=== PATIENT | female | born 1955 | race Caucasian/White ===

== ENCOUNTER → 2016-05-06 | Outpatient (CLI) | payer OTHER ==
[~2016-05-06] MED LIST: ACET-1256 PO; AGM875 PO; ALBUAER2 INH; ALPR1TAB3 PO; ASPCH81 PO; LCTX PO; PRLSRUNK; QVRINH80 INH; TRAM-10 PO
--- NOTE | 2016-05-06 13:17 | DIAGNOSTIC IMAGING REPORT ---
GI SERIES W/AIR ROUTINE CLINICAL HISTORY: Epigastric pain. Reflux. Nausea. COMPARISON STUDY: Barium swallow March 28, 2010. FLUOROSCOPY TIME: 1.4 minutes. FINDINGS: 20 fluoroscopic images were obtained. Esophageal motility was normal. No esophageal mass or stricture was identified. No hiatal hernia was identified. No reflux was elicited. Gastric fold pattern was normal. Duodenal fold pattern was normal. Caliber of the opacified small bowel was normal. IMPRESSION: Unremarkable double contrast upper GI series Electronically signed by: Keron Crystal M.D. 05/06/2016 1:16 PM Dictated Date/Time: 05/06/2016 1:15 PM
== END | disposition home or self-care (01) ==
LOC: C.RAD 12:36
PROVIDERS: ATTEND Nurse Practitioner Family
DX: K21.9 Gastro-esophageal reflux disease without esophagitis (principal); R14.0 Abdominal distension (gaseous)

== ENCOUNTER 2020-03-03 19:11 | Observation (INO) ==
--- OUTSIDE RECORDS SUMMARY | 2020-03-03 19:14 | External Medical Summary | Continuity of Care Document ---
:1955 Author Name Ale Macdonald Address Unavailable Unavailable , Care Team Providers Name Role Phone Unavailable Unavailable Unavailable Maryam Cartwright M.D. Unavailable [email or web address] CAROLYN III, E Unavailable Unavailable Problems Hypertrophy of nasal turbinates (478.0) (J34.3) Acquired deviated nasal septum (470) (J34.2) Nasal polyps (471.9) (J33.9) Chronic sinusitis (473.9) (J32.9) Allergies and Adverse Reactions Darvocet-N 50 TABS (Allergy) Percocet TABS (Allergy) predniSONE TABS (Allergy) Sulfa Drugs (Allergy) Medications Albuterol Torres FRIAS Refills: 0 Vitamin D3 Torres ROSALES Refills: 0 Vitamin B 12 500 MCG Torres BASURTO Refills: 0 Xanax Torres SORIA Refills: 0 predniSONE 5 MG Oral Tablet; Take one ta blet 4 times a day for 5 days then one tablet 3 times a day for 5 days then one tablet 2 times a day for 5 days then stop Torres Cartwright Start: 10-Oct-2010 Quantity: 50 Refills: 0 Clarithromycin ER 500 MG Oral Tablet Ext ended Release 24 Hour; TAKE 2 TABLETS ONCE DAILY UNTIL FINISHED. Torres Cartwright Start: 10-Oct-2010 Quantity: 28 Refills: 0 Procedures History of Tonsillectomy With Adenoidectomy Status: Completed History of Section Status: Comp leted History of Section Status: Comp leted History of Treatment Of Forearm Fracture Status: Completed Immunizations Immunizations not documented Family History Father Family history of Cancer Status: Active Mother Family history of Cancer Status: Active Family history of Hypertension (V17.49) Status: Active natural son Family history of Hypertension (V17.49) Status: Active Social History - Smoking Status Tobacco smoking consumption unknown Plan of Treatment Planned Observations Planned Goals not documented Results No Known Results Results not documented
--- OUTSIDE RECORDS SUMMARY | 2020-03-03 19:14 | External Medical Summary | Continuity of Care Document ---
:1955 Author Name Ale Macdonald Address Unavailable Unavailable , Care Team Providers Name Role Phone Unavailable Unavailable Unavailable Maryam Cartwright M.D. Unavailable [email or web address] CAROLYN III, E Unavailable Unavailable Problems Chronic sinusitis (473.9) (J32.9) Nasal polyps (471.9) (J33.9) Acquired deviated nasal septum (470) (J34.2) Hypertrophy of nasal turbinates (478.0) (J34.3) Allergies and Adverse Reactions Darvocet-N 50 TABS (Allergy) Percocet TABS (Allergy) predniSONE TABS (Allergy) Sulfa Drugs (Allergy) Medications Albuterol Torres FRIAS Refills: 0 Vitamin D3 Torres ROSALES Refills: 0 Vitamin B 12 500 MCG Torres BASURTO Refills: 0 Xanax Torres SORIA Refills: 0 Clarithromycin ER 500 MG Oral Tablet Ext ended Release 24 Hour; TAKE 2 TABLETS ONCE DAILY UNTIL FINISHED. Torres Cartwright Start: 10-Oct-2010 Quantity: 28 Refills: 0 predniSONE 5 MG Oral Tablet; Take one ta blet 4 times a day for 5 days then one tablet 3 times a day for 5 days then one tablet 2 times a day for 5 days then stop Torres Cartwright Start: 10-Oct-2010 Quantity: 50 Refills: 0 Procedures History of Tonsillectomy With [...]
--- NOTE | 2020-03-03 20:30 | Emergency Department Note ---
History of Present Illness General Chief complaint: Hypertension Stated complaint: BP HIGH Time Seen by Provider: 03/03/20 20:09 Source: patient Mode of arrival: ambulatory Limitations: no limitations History of Present Illness Maximum Pain Intensity: 5 This patient comes in after feeling lightheaded and near syncope. She says she is not been feeling well for months. She called [facility] yesterday and started back on her atenolol. She said her son made her come in tonight because she felt like she was in a pass out apparently the ambulance showed up and her blood pressure was high and she kept getting more anxious and kept going up. She feels a lot better now. She says on January 27 she slipped on some ice it sounds like this was a mechanical fall she landed on her buttocks and left side. She not hit her head. She is had no chest pain or shortness of breath. She has occasional tingling in her left arm and has had some neck pain from this. She also some tingling in her left face these of both been going on for weeks. No fever chills no cough no exposure to Covid she does have asthma which has been stable. She does have anxiety and denies any suicidal or homicidal ideations. No blood or melena in her stool. No trouble speaking or swallowing. No headache. Home Medications Medication Instructions Recorded Confirmed Type albuterol sulfate 2 puff INHALATION .Q4H PRN 03/03/20 03/03/20 History alprazolam 0.5 mg PO TID PRN 03/03/20 03/03/20 History atenolol 12.5 mg PO QDL 03/03/20 03/03/20 History azithromycin 250 mg PO DAILY 03/03/20 03/03/20 History prednisone 5 mg PO DAILY 03/03/20 03/03/20 History Allergies Allergy/AdvReac Type Severity Reaction Status Date / Time Iodinated Contrast Media Allergy Severe SHORTNESS Verified 03/03/20 21:23 OF BREATH oxycodone Allergy Mild Verified 03/03/20 21:23 Sulfa (Sulfonamide Allergy Mild Verified 03/03/20 21:23 Antibiotics) Past Med/Surg History Social History Smoking Status: Never smoker Preferred Language: Korean Feels Safe at Home: Yes Immunizations: Past medical historyasthma. She did start a Z-Medardo as she was having some ear pain a couple days ago that is gotten better. She is also on prednisone 5 mg chronically and restarted atenolol under her providers guidance yesterday. Social history she lives with her 11-year-old grandson whom she is the guardian Review of Systems A total of 10 systems reviewed and were otherwise negative Physical Exam Vital Signs Vital Signs - 24 hr 03/03/20 19:14 03/03/20 20:32 03/03/20 22:00 Temperature 36.8 C Temperature Source Oral Pulse Rate 77 Pulse Rate [Apical] 61 68 Pulse Rate from SpO2 Sensor Respiratory Rate 16 18 18 Respiratory Effort / Characteristics Non-Labored Respiratory Depth Normal Normal Blood Pressure 193/84 H Blood Pressure [Right Arm] 166/72 H 186/84 H Blood Pressure Mean 120 Blood Pressure Mean [Right Arm] 103 118 Pulse Oximetry 96 98 98 Oxygen Delivery Method Room Air Room Air Room Air Sepsis Recent Fever Within 48 Hours No Sepsis New/Unexplained Change in Mental Status No Sepsis Action Taken by Nursing No Action Required 03/03/20 23:00 Temperature Temperature Source Pulse Rate 72 Pulse Rate [Apical] Pulse Rate from SpO2 Sensor 70 Respiratory Rate 22 Respiratory Effort / Characteristics Respiratory Depth Blood Pressure 188/81 H Blood Pressure [Right Arm] Blood Pressure Mean 116 Blood Pressure Mean [Right Arm] Pulse Oximetry 96 Oxygen Delivery Method Sepsis Recent Fever Within 48 Hours Sepsis New/Unexplained Change in Mental Status Sepsis Action Taken by Nursing General: Well developed well nourished in no acute distress, breathing comfortably on room air. Normal speech HEENT: Normal cephalic atraumatic. No facial asymmetry or droop. Pupils are equal round and reactive to light. Extraocular movements are intact. Oropharynx is pink with moist mucous membranes. No swelling of the mouth lips or tongue. Neck: Supple with a midline trachea. No meningeal signs or stiffness, no JVD or bruits. No Stridor. Chest: Clear to auscultation bilaterally. No wheezes or rhonchi. No increased work of breathing. Heart: Regular rate and rhythm without murmurs or gallops. Abdomen: Soft nontender, nondistended without rebound guarding or rigidity. Extremities: No cyanosis clubbing or edema. No calf tenderness or assymetry Spine/Back. Non tender to palpation. No CVA tenderness Skin: Good turgor without rashes. Neurologic exam: Cranial nerves two through 12 are intact. Motor and sensation are intact and symmetrical throughout. No tremor. Normal gait. Medical Decision Making Differential Diagnosis Hypertension, arrhythmia, acute coronary syndrome, syncope, anxiety, trauma, int racranial process, cervical fracture, electrolyte or metabolic abnormality, anemia, Covid Medical Records Attestation: I reviewed the patient's medical records. Home Medications Current Medication List: was personally reviewed by me Laboratory Data Attestation: I reviewed the patient's lab results. Result diagrams: 03/03/20 20:39 03/03/20 20:39 Lab Results 03/03/20 03/03/20 03/03/20 Range/Units 20:39 20:39 20:39 WBC 10.33 (4.8-10.8) K/uL RBC 4.47 (4.2-5.4) M/uL Hgb 14.1 (12.0-16.0) g/dL Hct 42.2 (37-47) % MCV 94.4 (80-100) fL MCH 31.5 (25-34) pg MCHC 33.4 (32-36) g/dL RDW Std Deviation 45.2 (36.4-46.3) fL RDW Coeff of Obey 13.1 (11.5-14.5) % Plt Count 226 (130-400) K/uL MPV 9.9 (7.4-10.4) fL Immature Gran % (Auto) 0.2 % Neut % (Auto) 61.6 % Lymph % (Auto) 31.2 % [place] % (Auto) 5.4 % Eos % (Auto) 1.3 % Baso % (Auto) 0.3 % Neut # (Auto) 6.37 (1.4-6.5) K/uL Lymph # (Auto) 3.22 (1.2-3.4) K/uL [place] # (Auto) 0.56 (0.11-0.59) K/uL Eos # (Auto) 0.13 (0-0.5) K/uL Baso # (Auto) 0.03 (0-0.2) K/uL Immature Gran # (Auto) 0.02 (0.00-0.02) K/uL Sodium 140 (136-145) mmol/L Potassium 3.6 (3.5-5.1) mmol/L Chloride 104 (98-107) mmol/L Carbon Dioxide 30 (21-32) mmol/L Anion Gap 6.0 (3-11) BUN 11 (7-18) mg/dl Creatinine 0.73 (0.6-1.2) mg/dl Est Cr Clr Drug Dosing 69.0 ml/min Est GFR ( Amer) 102.3 Est GFR (Non-Af Amer) 88.3 BUN/Creatinine Ratio 15.2 (10-20) Glucose 93 (70-99) mg/dl Calcium 9.9 (8.5-10.1) mg/dl Magnesium 2.1 (1.8-2.4) mg/dl Total Bilirubin 0.4 (0.2-1) mg/dl AST 10 L (15-37) U/L ALT 24 (12-78) U/L Alkaline Phosphatase 86 (45-117) U/L Troponin I < 0.015 (0-0.045) ng/ml Total Protein 8.0 (6.4-8.2) gm/dl Albumin 4.0 (3.4-5.0) gm/dl Globulin 4.0 (2.5-4.0) gm/dl Albumin/Globulin Ratio 1.0 (0.9-2) TSH 1.230 (0.300-4.500) uIu/ml Urine Color Yellow Urine Appearance Clear (Clear) Urine pH 5.5 (4.5-7.5) Ur Specific [place] 1.009 (1.000-1.030) Urine Protein Negative (Negative) Urine Glucose (UA) Negative (Negative) Urine Ketones Negative (Negative) Urine Blood Trace H (Negative) Urine Nitrite Negative (Negative) Urine Bilirubin Negative (Negative) Urine Urobilinogen Negative (Negative) Ur Leukocyte Esterase 1+ H (Negative) Urine WBC (Auto) 1-5 (0-5) /hpf Urine RBC (Auto) 0-4 (0-4) /hpf U Hyaline Cast (Auto) 0 (0-5) /lpf U Epithel Cells (Auto) 10-20 H (0-5) /lpf Urine Bacteria (Auto) Negative (Negative) Imaging Data Attestation: I personally reviewed and interpreted this imaging study as follows: Radiologist's Impression: CT SCAN OF THE BRAIN WITHOUT IV CONTRAST CLINICAL HISTORY: Syncope. COMPARISON STUDY: CT of the brain dated 07/30/2010. TECHNIQUE: Unenhanced axial CT scan of the brain is performed from the vertex to the skull base. A dose lowering technique was utilized adhering to the principles of ALARA. CT DOSE: 883.52 mGy.cm FINDINGS: Brain parenchyma: The brain parenchyma is normal in appearance. There is no hemorrhage, mass effect, or evidence of acute territorial ischemia by CT criteria. Garcia-white matter differentiation is preserved. No extra-axial fluid collection is seen. Ventricles, sulci, cisterns: Normal in configuration. Intracranial vasculature: There is mild atherosclerotic calcification of the cavernous carotid arteries. Calvarium: The skeletal structures are osteopenic. There is no depressed calvarial fracture. Sinuses and mastoids: Mild mucosal thickening is noted in the maxillary antra and the ethmoid sinuses. The remaining visualized paranasal sinuses are clear. The mastoid air cells are well pneumatized. Orbits: The bony orbits are grossly intact. IMPRESSION: No acute intracranial abnormality. CT SCAN OF THE CERVICAL SPINE CLINICAL HISTORY: Fall. COMPARISON STUDY: No priors. TECHNIQUE: CT scan of the cervical spine is performed from the skull base to the upper thoracic spine. Images are reviewed in the axial, sagittal, and coronal planes. IV contrast was not administered for this examination. A dose lowering technique was utilized adhering to the principles of ALARA. FINDINGS: Skeletal structures: The skeletal structures are osteopenic. There is no evidence of fracture or subluxation involving the cervical spine. Vertebral body height and alignment are maintained. Small anterior osteophytes are seen throughout. The odontoid process and lateral masses are intact. The atlantoaxial articulation is preserved noting productive degenerative change. The spinous processes appear intact. There is moderate multilevel cervical spondylosis. Uncovertebral and facet arthropathy contribute to neural foraminal narrowing at several levels. Intervertebral discs: Moderate disc space narrowing is seen at C5-C6 and C6-C7. Mild disc space narrowing is seen at the remaining cervical levels. Central canal: Posterior disc osteophyte complexes at C5-C6 and C6-C7 likely contribute to mild acquired compromise of the central canal. Soft tissues: The prevertebral and paraspinous soft tissues are within normal limits. Calvarium: The visualized calvarium at the skull base appears intact. Brain parenchyma: Partially visualized brain parenchyma at the skull base is within normal limits. Sinuses and mastoids: Mild mucosal thickening is noted in the maxillary antra. The mastoid air cells are well pneumatized. Lung apices: There is biapical scarring. Apical lung parenchyma is otherwise clear as visualized. IMPRESSION: 1. There is no evidence of fracture or subluxation involving the cervical spine. 2. Osteopenia and spondylotic change as above. ECG Data Attestation: I personally reviewed and interpreted this ECG as follows: Indication: + weakness Rate (beats per minute): 57 Rhythm: + normal sinus ECG Intervals/blocks: + Normal QRS, + Normal QT and + Normal CT ECG [place]: + Normal ECG ST segments: + T-wave inversions (T wave inversions inferiorly and laterally which are new) ECG Findings: no PACs and no PVCs Comparison ECG Date: from (01/19/13) Change: no significant change MDM Narrative This patient comes in as described above. She was placed on a monitor tech room C2. She has multiple complaints that have been going on for over a month now she said her blood pressure was high and she felt dizzy. When she showed up in triage it was down to 193/84. She has no numbness weakness or neuro neurologic symptoms. Multiple blood testing was obtained. IV access was established. chest x-ray, EKG, and CAT scan of the head and neck were obtained as well. CAT scan of the head was negative. She has no fever or white count to suggest infection. She has no significant anemia. EKG does not show any significant arrhythmia, however she does have some T wave inversions inferiorly noted laterally which are new compared to her old one that was from May 07, 2016. She has testing of electrolyte or metabolic abnormality. Troponin was negative. CAT scan of the head and neck were unremarkable. Given her near syncopal episode and her EKG changes. I do think she needs to be admitted/observe for further cardiac work-up. I will consult Dr. Martin to see her in the ER for these measures. Continuous cardiac monitoring: An order was placed in the EMR for continuous cardiac monitoring. The patient was found to be in normal sinus rhythm with a pulse of 72. Impression & Plan Near syncope, Anxiety, Weakness, Acute electrocardiogram changes Discharge Plan Visit Data Chief Complaint: Hypertension Stated Complaint: BP HIGH ED Provider: Roland Rogers Discharge Problem: Near syncope, Anxiety, Weakness, Acute electrocardiogram changes Forms Stand Alone Forms: My [facility] Prescriptions Prescriptions: No Action azithromycin 250 mg tablet 250 mg PO DAILY RF: 0 atenolol 25 mg tablet 12.5 mg PO QDL RF: 0 alprazolam 0.5 mg tablet 0.5 mg PO TID PRN (Reason: Anxiety) RF: 0 albuterol sulfate 90 mcg/actuation HFA aerosol inhaler 2 puff INHALATION .Q4H PRN (Reason: Shortness Of Breath) RF: 0 prednisone 5 mg tablet 5 mg PO DAILY RF: 0
[2020-03-03 20:56] LABS: Basophils # (auto) 0.03 K/uL (0-0.2); Basophils % (auto) 0.3 %; Eosinophils # (auto) 0.13 K/uL (0-0.5); Eosinophils % (auto) 1.3 %; Hematocrit (blood only) 42.2 % (37-47); Hemoglobin 14.1 g/dL (12.0-16.0); Immature Granulocytes # (auto) 0.02 K/uL (0.00-0.02); Immature Granulocytes % (auto) 0.2 %; Lymphocytes # (auto) 3.22 K/uL (1.2-3.4); Lymphocytes % (auto) 31.2 %; Mean Corpuscular Hemoglobin 31.5 pg (25-34); Mean Corpuscular Hgb Conc 33.4 g/dL (32-36); Mean Corpuscular Volume 94.4 fL (80-100); Mean Platelet Volume 9.9 fL (7.4-10.4); Monocytes # (auto) 0.56 K/uL (0.11-0.59); Monocytes % (auto) 5.4 %; Neutrophils # (auto) 6.37 K/uL (1.4-6.5); Neutrophils % (auto) 61.6 %; Platelet Count 226 K/uL (130-400); RDW Coefficient of Variation 13.1 % (11.5-14.5); RDW Standard Deviation 45.2 fL (36.4-46.3); Red Blood Count 4.47 M/uL (4.2-5.4); White Blood Count 10.33 K/uL (4.8-10.8)
--- NOTE | 2020-03-03 21:04 | CT Scan Report ---
CT SCAN OF THE BRAIN WITHOUT IV CONTRAST CLINICAL HISTORY: Syncope. COMPARISON STUDY: CT of the brain dated 07/30/2010. TECHNIQUE: Unenhanced axial CT scan of the brain is performed from the vertex to the skull base. A d ose lowering technique was utilized adhering to the principles of ALARA. CT DOSE: 883.52 mGy.cm FINDINGS: Brain parenchyma: The brain parenchyma is normal in appearance. There is no hemorrhage, mass effect, or evidence of acute territorial ischemia by CT criteria. Garcia-white matter differentiation is preser autumn. No extra-axial fluid collection is seen. Ventricles, sulci, cisterns: Normal in configuration. Intracranial vasculature: There is mild atherosclerotic calcification of the cavernous carotid arteri es. Calvarium: The skeletal structures are osteopenic. There is no depressed calvarial fracture. Sinuses and mastoids: Mild mucosal thickening is noted in the maxillary antra and the ethmoid sinuses . The remaining visualized paranasal sinuses are clear. The mastoid air cells are well pneumatized. Orbits: The bony orbits are grossly intact. IMPRESSION: No acute intracranial abnormality. ACT 112: Negative or not required by law. Electronically signed by: Stephen Bowen M.D. 03/03/2020 9:02 PM
--- NOTE | 2020-03-03 21:09 | CT Scan Report ---
CT SCAN OF THE CERVICAL SPINE CLINICAL HISTORY: Fall. COMPARISON STUDY: No priors. TECHNIQUE: CT scan of the cervical spine is performed from the skull base to the upper thoracic spine . Images are reviewed in the axial, sagittal, and coronal planes. IV contrast was not administered fo r this examination. A dose lowering technique was utilized adhering to the principles of ALARA. FINDINGS: Skeletal structures: The skeletal structures are osteopenic. There is no evidence of fracture or subl uxation involving the cervical spine. Vertebral body height and alignment are maintained. Small anter ior osteophytes are seen throughout. The odontoid process and lateral masses are intact. The atlantoa xial articulation is preserved noting productive degenerative change. The spinous processes appear in tact. There is moderate multilevel cervical spondylosis. Uncovertebral and facet arthropathy contribu te to neural foraminal narrowing at several levels. Intervertebral discs: Moderate disc space narrowing is seen at C5-C6 and C6-C7. Mild disc space narro wing is seen at the remaining cervical levels. Central canal: Posterior disc osteophyte complexes at C5-C6 and C6-C7 likely contribute to mild acqui red compromise of the central canal. Soft tissues: The prevertebral and paraspinous soft tissues are within normal limits. Calvarium: The visualized calvarium at the skull base appears intact. Brain parenchyma: Partially visualized brain parenchyma at the skull base is within normal limits. Sinuses and mastoids: Mild mucosal thickening is noted in the maxillary antra. The mastoid air cells are well pneumatized. Lung apices: There is biapical scarring. Apical lung parenchyma is otherwise clear as visualized. IMPRESSION: 1. There is no evidence of fracture or subluxation involving the cervical spine. 2. Osteopenia and spondylotic change as above. ACT 112: Negative or not required by law. Electronically signed by: Stephen Bowen M.D. 03/03/2020 9:08 PM
[2020-03-03 21:13] LABS: Appearance Urine Clear (Clear); Bacteria Urine Automated Negative (Negative); Bilirubin Urine Negative (Negative); Blood Urine Trace (Negative); Cast Urine Automated 0 /lpf (0-5); Color Urine Yellow; Glucose Urine UA Negative (Negative); Ketones Urine Negative (Negative); Leukocyte Esterase Urine 1+ (Negative); Nitrite Urine Negative (Negative); Protein Urine Negative (Negative); RBC Urine Automated 0-4 /hpf (0-4); Specific Gravity Urine 1.009 (1.000-1.030); Urobilinogen Urine Negative (Negative); pH Urine 5.5 (4.5-7.5)
[2020-03-03 21:15] LABS: Alanine Aminotransferase 24 U/L (12-78); Aspartate Aminotransferase 10 U/L (15-37); BUN Creatinine Ratio 15.2 (10-20); Blood Urea Nitrogen 11 mg/dl (7-18); Calcium 9.9 mg/dl (8.5-10.1); Carbon Dioxide 30 mmol/L (21-32); Chloride 104 mmol/L (98-107); Est GFR (African American) 102.3; Est GFR (Non-African American) 88.3; Glucose 93 mg/dl (70-99); Magnesium 2.1 mg/dl (1.8-2.4); Potassium 3.6 mmol/L (3.5-5.1); Sodium 140 mmol/L (136-145)
[2020-03-03 21:25] LABS: Alkaline Phosphatase 86 U/L (45-117); Bilirubin,Total 0.4 mg/dl (0.2-1); Troponin I < 0.015 ng/ml (0-0.045)
[2020-03-04] MEDS ORDERED: ACETAMINOPHEN 500 MG TAB PO STA (01:13)
[2020-03-04] MEDS ORDERED: NITROGLYCERIN SL 0.4 MG/TAB TAB SL PRN (03:01)
[2020-03-04] MEDS ORDERED: ALBUTEROL HFA 8 GM INHALER INH PRN (03:01)
[2020-03-04] MEDS ORDERED: ONDANSETRON INJ 2 MG/ML 2 ML VIAL IV PRN (03:01)
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
[2020-03-04 07:28] LABS: Basophils # (auto) 0.05 K/uL (0-0.2); Basophils % (auto) 0.6 %; Eosinophils # (auto) 0.25 K/uL (0-0.5); Eosinophils % (auto) 2.8 %; Hematocrit (blood only) 41.3 % (37-47); Immature Granulocytes # (auto) 0.03 K/uL (0.00-0.02); Immature Granulocytes % (auto) 0.3 %; Lymphocytes # (auto) 3.33 K/uL (1.2-3.4); Lymphocytes % (auto) 37.2 %; Mean Corpuscular Hemoglobin 31.9 pg (25-34); Mean Corpuscular Hgb Conc 33.9 g/dL (32-36); Mean Corpuscular Volume 94.1 fL (80-100); Mean Platelet Volume 9.9 fL (7.4-10.4); Monocytes # (auto) 0.52 K/uL (0.11-0.59); Monocytes % (auto) 5.8 %; Neutrophils # (auto) 4.78 K/uL (1.4-6.5); Neutrophils % (auto) 53.3 %; Platelet Count 210 K/uL (130-400); RDW Coefficient of Variation 13.1 % (11.5-14.5); RDW Standard Deviation 45.4 fL (36.4-46.3); Red Blood Count 4.39 M/uL (4.2-5.4); White Blood Count 8.96 K/uL (4.8-10.8)
--- NOTE | 2020-03-04 07:50 | Electrocardiogram Report ---
Test Reason : Blood Pressure : / mmHG Vent. Rate : 057 BPM Atrial Rate : 057 BPM P-R Int : 154 ms QRS Dur : 108 ms QT Int : 420 ms P-R-T Axes : 048 -24 005 degrees QTc Int : 408 ms Sinus bradycardia Left ventricular hypertrophy with repolarization abnormality Cannot rule out Septal infarct , age undetermined Abnormal ECG When compared with ECG of 19-JAN-2013 20:23, T wave inversion now evident in Inferolateral leads Confirmed by Bonilla Hansen ([id number]) on 03/04/2020 7:49:41 AM Referred By: REFERRED SELF Confirmed By:Bonilla Hansen
[2020-03-04 07:53] LABS: BUN Creatinine Ratio 17.4 (10-20); Blood Urea Nitrogen 11 mg/dl (7-18); Calcium 9.7 mg/dl (8.5-10.1); Carbon Dioxide 29 mmol/L (21-32); Chloride 106 mmol/L (98-107); Creatinine Clr Calc Pharmacy 78.7 ml/min; Est GFR (African American) 110.8; Est GFR (Non-African American) 95.6; Glucose 84 mg/dl (70-99); Magnesium 2.1 mg/dl (1.8-2.4); Potassium 4.1 mmol/L (3.5-5.1); Sodium 140 mmol/L (136-145)
[2020-03-04 07:57] LABS: Troponin I < 0.015 ng/ml (0-0.045)
[2020-03-04] MEDS: ALPRAZolam 0.5 MG TABLET PO PRN (08:59)
[2020-03-04] MEDS ORDERED: AZITHROMYCIN 250 MG TAB PO SCH ×2 (09:00→16:00)
[2020-03-04] MEDS ORDERED: predniSONE 5 MG TAB PO SCH ×2 (09:00→16:00)
[2020-03-04] MEDS: ACETAMINOPHEN 325 MG TAB PO PRN (12:05)
[2020-03-04] MEDS: ATENOLOL 25 MG TABLET PO SCH (12:17)
[2020-03-04] MEDS: LOSARTAN POTASSIUM 25 MG TAB PO SCH (13:49)
--- NOTE | 2020-03-04 15:42 | Cardiology Consultation ---
Date of Consultation March 04, 2020 Assessment & Plan (1) HTN (hypertension): (2) Abnormal EKG: (3) LVH (left ventricular hypertrophy): Patient presents with symptoms of dizziness and lightheadedness. She denies exertional chest pain symptoms, and her symptoms do not sound suggestive of ischemia. Troponin I has been negative on a serial basis x3. EKG however performed last evening at 2031 revealed sinus bradycardia 57 bpm, with age-indeterminate septal infarction pattern in lead V2, and repolarization changes most notably in the lateral precordial leads suggestive of ischemia versus left ventricular hypertrophy. EKG was repeated today with development of noted new T wave inversions in leads V3 and V4, more prominent than the previous tracing. Echocardiogram revealed normal left ventricular ejection fraction with no regional wall motion abnormalities and moderate concentric left ventricular hypertrophy. Patient's blood pressure has been consistently elevated during hospital stay, initially with systolic blood pressure in the 190s, now down into the 150s. At present, recommend proceeding with treatment for hypertension, will start losartan 25 mg daily. Continue low-dose atenolol which has been helpful in the past with her subjective palpitations. Her heart rates have been in the 50s to 60s range, and I do not think there is much room for titration of her beta-briana. Her EKG could be outside sales representative insurance of the LVH, however ischemic heart disease is another consideration. Patient's cardiac enzymes are negative however, and she does not have symptoms to suggest unstable angina. After blood pressure is controlled, future considerations include proceeding wit h nuclear stress testing. I am not convinced the patient revealed to walk sufficiently to allow for a stress echocardiogram, I would avoid dobutamine administration given her hypertension and anxiety. History of Present Illness Attending Physician: Renato Bansal MD History of Present Illness Urszula Paris is a 64 year old female seen in cardiology consultation per Dr Martin for the evaluation of dizziness and abnormal EKG. The patient describes a longstanding history of palpitations and hypertension. She had previously been treated with atenolol but she believes that it was discontinued approximately 2 years ago, and recently reinitiated on 02/08/2020. She describes a longstanding history with difficulty with anxiety. She notes onset of lightheadedness and dizziness a few months ago, however it was acutely worse yesterday. She noted lightheadedness and dizziness that seem to be worse when she was seated, and better when she got up and walked around. She notes no alfred loss of postural tone. When I asked her how she felt yesterday she states that she "never feels good "but she did not have dizziness first thing in the morning. Around lunchtime she started to feel dizziness. She presented to the emergency room after her symptoms persisted, and her initial vital signs performed last evening at 1914 included initial blood pressure of 193/84. Her initial heart rate was 77 bpm. At present, she is feeling improved, without alfred dizziness while sitting still. She denies any recent exertional chest discomfort. She walks up stairs routinely, without chest pain, and describes a degree of shortness of breath appropriate for her level of exertion. Past Medical History: Palpitations COPD Anxiety Hypertension Family History: Mother with history of hypercholesterolemia, had coronary heart disease with CABG in her 60s (1994) and ultimately due to complications of cancer at the age of 80 Patient has a brother with a history of stroke and perhaps myocardial infarction in his 40s. Details unknown. Social History: Non-smoker Allergies Allergy/AdvReac Type Severity Reaction Status Date / Time Iodinated Contrast Media Allergy Severe SHORTNESS Verified 03/03/20 21:23 OF BREATH oxycodone Allergy Mild Verified 03/03/20 21:23 Sulfa (Sulfonamide Allergy Mild Verified 03/03/20 21:23 Antibiotics) Home Medications Medication Instructions Recorded Confirmed Type albuterol sulfate 2 puff INHALATION .Q4H PRN 03/03/20 03/03/20 History alprazolam 0.5 mg PO TID PRN 03/03/20 03/03/20 History atenolol 12.5 mg PO QDL 03/03/20 03/03/20 History azithromycin 250 mg PO DAILY 03/03/20 03/03/20 History prednisone 5 mg PO DAILY 03/03/20 03/03/20 History Patient History Social History Smoking Status: Never smoker Second Hand Exposure: No; Do You Dip or Chew Tobacco: No; Tobacco Cessation Education Requested by Patient: No Hx Alcohol Use: No Hx Substance Use: No Preferred Language: Palauan Communication Ability: Effective Pediatrician Required: No Beliefs That Will Affect Care: None marital status: Current Living Situation: Spouse Other Information That Helps Us Care for You: No Feels Safe at Home: Yes Safety Concerns: Feels Safe At This Time Assistive Devices: None Review of Systems Review of Systems: All systems reviewed & are unremarkable except as noted in HPI & below Physical Exam Physical Exam: Temp Pulse Resp BP Pulse Ox 36.6 C 60 18 157/70 H 95 03/04/20 15:00 03/04/20 15:02 03/04/20 15:00 03/04/20 15:00 03/04/20 15:00 Constitutional: WD/WN, vitals as above Respiratory: normal respiratory effort, lungs clear to auscultation Cardiovascular: RRR, no murmur, no edema Gastrointestinal (Abdomen): normal bowel sounds, soft, nontender, no hepatosplenomegaly Skin: no rashes, warm and dry Neurologic: PERRL, EOMI, accommodation nl, no face palsy, no dysarthria Results & Data ([facility]) Vital Signs (Past 12 Hours) Vital Signs Temp Pulse Pulse Resp BP Pulse Ox 03/04/20 15:02 60 03/04/20 15:00 36.6 C 61 18 157/70 H 95 03/04/20 12:36 36.8 C 84 19 170/75 H 94 03/04/20 07:35 36.7 C 74 18 151/69 H 93 03/04/20 07:19 60 03/04/20 05:25 54 L Laboratory Results Cardiac Enzymes 03/03/20 03/04/20 03/04/20 Range/Units 20:39 06:55 11:01 AST 10 L (15-37) U/L Troponin I < 0.015 < 0.015 < 0.015 (0-0.045) ng/ml CBC 03/03/20 03/04/20 Range/Units 20:39 06:55 WBC 10.33 8.96 (4.8-10.8) K/uL RBC 4.47 4.39 (4.2-5.4) M/uL Hgb 14.1 14.0 (12.0-16.0) g/dL Hct 42.2 41.3 (37-47) % Plt Count 226 210 (130-400) K/uL Neut # (Auto) 6.37 4.78 (1.4-6.5) K/uL Lymph # (Auto) 3.22 3.33 (1.2-3.4) K/uL [place] # (Auto) 0.56 0.52 (0.11-0.59) K/uL Eos # (Auto) 0.13 0.25 (0-0.5) K/uL Baso # (Auto) 0.03 0.05 (0-0.2) K/uL Comprehensive Metabolic Panel 03/03/20 03/04/20 Range/Units 20:39 06:55 Sodium 140 140 (136-145) mmol/L Potassium 3.6 4.1 (3.5-5.1) mmol/L Chloride 104 106 (98-107) mmol/L Carbon Dioxide 30 29 (21-32) mmol/L BUN 11 11 (7-18) mg/dl Creatinine 0.73 0.64 (0.6-1.2) mg/dl Glucose 93 84 (70-99) mg/dl Calcium 9.9 9.7 (8.5-10.1) mg/dl AST 10 L (15-37) U/L ALT 24 (12-78) U/L Alkaline Phosphatase 86 (45-117) U/L Total Protein 8.0 (6.4-8.2) gm/dl Albumin 4.0 (3.4-5.0) gm/dl Intake and Output 03/04/20 03/04/20 03/04/20 06:59 14:59 22:59 Intake Total 120 / 120 Balance 120 / 120 Intake: Oral 120 / 120 Other: # Unmeasured Voids 1 Weight 58.7 kg Weight Measurement Method Built in [facility]
[2020-03-04] MEDS ORDERED: POLYETHYLENE (MIRALAX) 17 GM PACK PO ONE (17:45)
[2020-03-04] MEDS ORDERED: LIDOCAINE 5% 1 PATCH TD SCH (18:00)
--- NOTE | 2020-03-04 18:35 | Hospitalist Progress Note ---
Date of Service March 04, 2020 Assessment & Plan (1) Near syncope: (2) HTN (hypertension): (3) Abnormal EKG: (4) LVH (left ventricular hypertrophy): A 64-year-old female presents with near syncope. 1. Near syncope, anxious, hypertensive urgency. EKG shows some T-wave inversions in inferior leads. Atenolol was restarted 12.5 mg daily a couple of days ago. We will monitor in the tele floor. Serial enzymes, echocardiogram, we will repeat EKG. Cardiology consult in a.m. for further recommendation. Cardiology recommends to star losartan, BP control, tele monitoring. 2. Hypertension. Blood pressure elevated on admission, further management as above. She also has LVH on EKG. Will follow echocardiogram for the LVH. Appreciate cardiology input. 3. History of anxiety and depression. Continue alprazolam for now. 4. History of asthma. Continue home inhalers and prednisone, recent possible ear infection. On exam, ear looks fine. We will complete the azithromycin course. 5. Deep venous thrombosis prophylaxis, sequential compression devices. 6. Disposition: Observation in med tele. Expect discharge home and follow with family doctor. Admission and Anticipated Discharge Date Admission Date: March 04, 2020 Subjective Pt seen in follow up of dizziness, hypertension. Currently sitting up in bed in NAD. Says she feels better. Currently denies any chest pain, shortness of breath. Seen by cardiology - change to losartan. Review of Systems Review of Systems: All systems reviewed & are unremarkable except as noted in HPI & below Constitutional: no fever and no chills Respiratory: no cough and no dyspnea Cardiovascular: no chest pain and no palpitations Physical Exam Physical Exam: GENERAL: The patient is of moderate built, not in acute distress. HEENT: NC/AT, Pupils equal, round, reactive to light. NECK: No JVD. No neck masses. CARDIOVASCULAR: S1, S2, regular rate and rhythm, no murmur, no gallop. RESPIRATORY SYSTEM: Normal AP diameter. No accessory muscle use. No wheezing, no crackles. ABDOMEN: Soft, bowel sounds present, nontender. No distention. NEURO: alert and oriented x3, speech fluent, no facial asymmetry, Cranial nerves II-XII are grossly intact. Nonfocal. Moves extremities. EXTREMITIES: No edema, no erythema. Results & Data Results & Data ([facility]) Vital Signs (Past 12 Hours) Vital Signs Temp Pulse Pulse Resp BP Pulse Ox 03/04/20 15:02 60 03/04/20 15:00 36.6 C 61 18 157/70 H 95 03/04/20 12:36 36.8 C 84 19 170/75 H 94 03/04/20 07:35 36.7 C 74 18 151/69 H 93 03/04/20 07:19 60 Laboratory Results 03/04/20 03/04/20 03/04/20 Range/Units 11:01 06:55 06:55 WBC 8.96 (4.8-10.8) K/uL RBC 4.39 (4.2-5.4) M/uL Hgb 14.0 (12.0-16.0) g/dL Hct 41.3 (37-47) % MCV 94.1 (80-100) fL MCH 31.9 (25-34) pg MCHC 33.9 (32-36) g/dL RDW Std Deviation 45.4 (36.4-46.3) fL RDW Coeff of Obey 13.1 (11.5-14.5) % Plt Count 210 (130-400) K/uL MPV 9.9 (7.4-10.4) fL Immature Gran % (Auto) 0.3 % Neut % (Auto) 53.3 % Lymph % (Auto) 37.2 % [place] % (Auto) 5.8 % Eos % (Auto) 2.8 % Baso % (Auto) 0.6 % Neut # (Auto) 4.78 (1.4-6.5) K/uL Lymph # (Auto) 3.33 (1.2-3.4) K/uL [place] # (Auto) 0.52 (0.11-0.59) K/uL Eos # (Auto) 0.25 (0-0.5) K/uL Baso # (Auto) 0.05 (0-0.2) K/uL Immature Gran # (Auto) 0.03 H (0.00-0.02) K/uL Sodium 140 (136-145) mmol/L Potassium 4.1 (3.5-5.1) mmol/L Chloride 106 (98-107) mmol/L Carbon Dioxide 29 (21-32) mmol/L Anion Gap 4.0 (3-11) BUN 11 (7-18) mg/dl Creatinine 0.64 (0.6-1.2) mg/dl Est Cr Clr Drug Dosing 78.7 ml/min Est GFR ( Amer) 110.8 Est GFR (Non-Af Amer) 95.6 BUN/Creatinine Ratio 17.4 (10-20) Glucose 84 (70-99) mg/dl Calcium 9.7 (8.5-10.1) mg/dl Magnesium 2.1 (1.8-2.4) mg/dl Total Bilirubin (0.2-1) mg/dl AST (15-37) U/L ALT (12-78) U/L Alkaline Phosphatase (45-117) U/L Troponin I < 0.015 < 0.015 (0-0.045) ng/ml Total Protein (6.4-8.2) gm/dl Albumin (3.4-5.0) gm/dl Globulin (2.5-4.0) gm/dl Albumin/Globulin Ratio (0.9-2) TSH (0.300-4.500) uIu/ml Urine Color Urine Appearance (Clear) Urine pH (4.5-7.5) Ur Specific [employer] (1.000-1.030) Urine Protein (Negative) Urine Glucose (UA) (Negative) Urine Ketones (Negative) Urine Blood (Negative) Urine Nitrite (Negative) Urine Bilirubin (Negative) Urine Urobilinogen (Negative) Ur Leukocyte Esterase (Negative) Urine WBC (Auto) (0-5) /hpf Urine RBC (Auto) (0-4) /hpf U Hyaline Cast (Auto) (0-5) /lpf U Epithel Cells (Auto) (0-5) /lpf Urine Bacteria (Auto) (Negative) COVID-19 Eval Order SARS-CoV-2, RNA, NAAT (NEGATIVE) 03/04/20 03/04/20 03/03/20 Range/Units 01:00 01:00 20:39 WBC (4.8-10.8) K/uL RBC (4.2-5.4) M/uL Hgb (12.0-16.0) g/dL Hct (37-47) % MCV (80-100) fL MCH (25-34) pg MCHC (32-36) g/dL RDW Std Deviation (36.4-46.3) fL RDW Coeff of [place] (11.5-14.5) % Plt Count (130-400) K/uL MPV (7.4-10.4) fL Immature Gran % (Auto) % Neut % (Auto) % Lymph % (Auto) % [place] % (Auto) % Eos % (Auto) % Baso % (Auto) % Neut # (Auto) (1.4-6.5) K/uL Lymph # (Auto) (1.2-3.4) K/uL [place] # (Auto) (0.11-0.59) K/uL Eos # (Auto) (0-0.5) K/uL Baso # (Auto) (0-0.2) K/uL Immature Gran # (Auto) (0.00-0.02) K/uL Sodium (136-145) mmol/L Potassium (3.5-5.1) mmol/L Chloride (98-107) mmol/L Carbon Dioxide (21-32) mmol/L Anion Gap (3-11) BUN (7-18) mg/dl Creatinine (0.6-1.2) mg/dl Est Cr Clr Drug Dosing ml/min Est GFR ( Amer) Est GFR (Non-Af Amer) BUN/Creatinine Ratio (10-20) Glucose (70-99) mg/dl Calcium (8.5-10.1) mg/dl Magnesium (1.8-2.4) mg/dl Total Bilirubin (0.2-1) mg/dl AST (15-37) U/L ALT (12-78) U/L Alkaline Phosphatase (45-117) U/L Troponin I (0-0.045) ng/ml Total Protein (6.4-8.2) gm/dl Albumin (3.4-5.0) gm/dl Globulin (2.5-4.0) gm/dl Albumin/Globulin Ratio (0.9-2) TSH (0.300-4.500) uIu/ml Urine Color Yellow Urine Appearance Clear (Clear) Urine pH 5.5 (4.5-7.5) Ur Specific [employer] 1.009 (1.000-1.030) Urine Protein Negative (Negative) Urine Glucose (UA) Negative (Negative) Urine Ketones Negative (Negative) Urine Blood Trace H (Negative) Urine Nitrite Negative (Negative) Urine Bilirubin Negative (Negative) Urine Urobilinogen Negative (Negative) Ur Leukocyte Esterase 1+ H (Negative) Urine WBC (Auto) 1-5 (0-5) /hpf Urine RBC (Auto) 0-4 (0-4) /hpf U Hyaline Cast (Auto) 0 (0-5) /lpf U Epithel Cells (Auto) 10-20 H (0-5) /lpf Urine Bacteria (Auto) Negative (Negative) COVID-19 Eval Order Covid19 [facility] SARS-CoV-2, RNA, NAAT NEGATIVE (NEGATIVE) 03/03/20 03/03/20 Range/Units 20:39 20:39 WBC 10.33 (4.8-10.8) K/uL RBC 4.47 (4.2-5.4) M/uL Hgb 14.1 (12.0-16.0) g/dL Hct 42.2 (37-47) % MCV 94.4 (80-100) fL MCH 31.5 (25-34) pg MCHC 33.4 (32-36) g/dL RDW Std Deviation 45.2 (36.4-46.3) fL RDW Coeff of [place] 13.1 (11.5-14.5) % Plt Count 226 (130-400) K/uL MPV 9.9 (7.4-10.4) fL Immature Gran % (Auto) 0.2 % Neut % (Auto) 61.6 % Lymph % (Auto) 31.2 % [place] % (Auto) 5.4 % Eos % (Auto) 1.3 % Baso % (Auto) 0.3 % Neut # (Auto) 6.37 (1.4-6.5) K/uL Lymph # (Auto) 3.22 (1.2-3.4) K/uL [place] # (Auto) 0.56 (0.11-0.59) K/uL Eos # (Auto) 0.13 (0-0.5) K/uL Baso # (Auto) 0.03 (0-0.2) K/uL Immature Gran # (Auto) 0.02 (0.00-0.02) K/uL Sodium 140 (136-145) mmol/L Potassium 3.6 (3.5-5.1) mmol/L Chloride 104 (98-107) mmol/L Carbon Dioxide 30 (21-32) mmol/L Anion Gap 6.0 (3-11) BUN 11 (7-18) mg/dl Creatinine 0.73 (0.6-1.2) mg/dl Est Cr Clr Drug Dosing 69.0 ml/min Est GFR ( Amer) 102.3 Est GFR (Non-Af Amer) 88.3 BUN/Creatinine Ratio 15.2 (10-20) Glucose 93 (70-99) mg/dl Calcium 9.9 (8.5-10.1) mg/dl Magnesium 2.1 (1.8-2.4) mg/dl Total Bilirubin 0.4 (0.2-1) mg/dl AST 10 L (15-37) U/L ALT 24 (12-78) U/L Alkaline Phosphatase 86 (45-117) U/L Troponin I < 0.015 (0-0.045) ng/ml Total Protein 8.0 (6.4-8.2) gm/dl Albumin 4.0 (3.4-5.0) gm/dl Globulin 4.0 (2.5-4.0) gm/dl Albumin/Globulin Ratio 1.0 (0.9-2) TSH 1.230 (0.300-4.500) uIu/ml Urine Color Urine Appearance (Clear) Urine pH (4.5-7.5) Ur Specific [employer] (1.000-1.030) Urine Protein (Negative) Urine Glucose (UA) (Negative) Urine Ketones (Negative) Urine Blood (Negative) Urine Nitrite (Negative) Urine Bilirubin (Negative) Urine Urobilinogen (Negative) Ur Leukocyte Esterase (Negative) Urine WBC (Auto) (0-5) /hpf Urine RBC (Auto) (0-4) /hpf U Hyaline Cast (Auto) (0-5) /lpf U Epithel Cells (Auto) (0-5) /lpf Urine Bacteria (Auto) (Negative) COVID-19 Eval Order SARS-CoV-2, RNA, NAAT (NEGATIVE) Medications Administered Current Inpatient Medications Acetaminophen (Acetaminophen 325 Mg Tab) 650 mg PO Q4H PRN PRN Reason: Pain or Fever Stop: 04/03/20 03:00 Last Admin: 01/23/21 12:05 Dose: 650 mg Documented by: Albuterol (Albuterol Hfa 8 Gm Inhaler) 2 puffs INH .Q4H PRN PRN Reason: Shortness Of Breath Stop: 04/03/20 03:00 Alprazolam (Alprazolam 0.5 Mg Tablet) 0.5 mg PO TID PRN PRN Reason: Anxiety Stop: 04/03/20 03:00 Last Admin: 03/04/20 08:59 Dose: 0.5 mg Documented by: Atenolol (Atenolol 25 Mg Tablet) 12.5 mg PO QDL COUNT INCLUDES THE [facility] Stop: 04/03/20 11:29 Last Admin: 03/04/20 12:17 Dose: 12.5 mg Documented by: Azithromycin (Azithromycin 250 Mg Tab) 250 mg PO DAILY@1600 ANN; Protocol Stop: 03/14/20 15:59 Last Admin: 03/04/20 15:54 Dose: 250 mg Documented by: Lidocaine (Lidocaine 5% 1 Patch) 1 patch TD DAILY@1800 COUNT INCLUDES THE [facility] Stop: 04/03/20 17:59 Losartan Potassium (Losartan Potassium 25 Mg Tab) 25 mg PO QAM COUNT INCLUDES THE [facility] Stop: 04/03/20 12:44 Last Admin: 03/04/20 13:49 Dose: 25 mg Documented by: Miscellaneous (Remove Lidoderm Patch) 1 ea N/A DAILY@0600 COUNT INCLUDES THE [facility] Stop: 04/04/20 05:59 Nitroglycerin (Nitroglycerin Sl 0.4 Mg/Tab Tab) 0.4 mg SL UD PRN PRN Reason: Chest Pain Stop: 04/03/20 03:00 Ondansetron HCl (Ondansetron Inj 2 Mg/Ml 2 Ml Vial) 4 mg IV Q6H PRN PRN Reason: Nausea Stop: 04/03/20 03:00 Prednisone (Prednisone 5 Mg Tab) 5 mg PO DAILY@1600 ANN; Protocol Stop: 04/03/20 15:59 Last Admin: 03/04/20 15:54 Dose: 5 mg Documented by:
[2020-03-05] MEDS: ACETAMINOPHEN 325 MG TAB PO PRN ×2 (01:44→08:41)
[2020-03-05] MEDS: ALPRAZolam 0.5 MG TABLET PO PRN ×2 (01:44→08:41)
[2020-03-05 06:15] LABS: Hematocrit (blood only) 40.6 % (37-47); Hemoglobin 13.7 g/dL (12.0-16.0); Mean Corpuscular Hemoglobin 31.7 pg (25-34); Mean Corpuscular Hgb Conc 33.7 g/dL (32-36); Mean Platelet Volume 10.1 fL (7.4-10.4); Platelet Count 201 K/uL (130-400); RDW Coefficient of Variation 13.1 % (11.5-14.5); RDW Standard Deviation 45.3 fL (36.4-46.3); Red Blood Count 4.32 M/uL (4.2-5.4); White Blood Count 10.58 K/uL (4.8-10.8)
[2020-03-05 06:44] LABS: BUN Creatinine Ratio 27.9 (10-20); Calcium 9.3 mg/dl (8.5-10.1); Creatinine Clr Calc Pharmacy 86.8 ml/min; Est GFR (African American) 114.5; Est GFR (Non-African American) 98.8; Magnesium 2.3 mg/dl (1.8-2.4); Phosphorus 4.1 mg/dl (2.5-4.9); Potassium 4.1 mmol/L (3.5-5.1)
[2020-03-05] MEDS: LOSARTAN POTASSIUM 25 MG TAB PO SCH (08:41)
[2020-03-05] MEDS ORDERED: POLYETHYLENE (MIRALAX) 17 GM PACK PO PRN (08:51)
--- NOTE | 2020-03-05 10:49 | Electrocardiogram Report ---
Test Reason : Blood Pressure : / mmHG Vent. Rate : 078 BPM Atrial Rate : 078 BPM P-R Int : 140 ms QRS Dur : 098 ms QT Int : 410 ms P-R-T Axes : 047 -38 -66 degrees QTc Int : 467 ms Normal sinus rhythm Left axis deviation septal NM age indterminate Left ventricular hypertrophy with repolarization abnormality marked T wave inversions V3-V4 with ST changes consider anterior ischemia Abnormal ECG When compared with ECG of 03-MAR-2020 20:32, T wave inversion now evident in Anterior leads Confirmed by Norris Montez ([id number]) on 03/05/2020 10:48:53 AM Referred By: REFERRED SELF Confirmed By:Norris Montez
--- NOTE | 2020-03-05 11:20 | Electrocardiogram Report ---
Test Reason : Blood Pressure : / mmHG Vent. Rate : 061 BPM Atrial Rate : 061 BPM P-R Int : 144 ms QRS Dur : 104 ms QT Int : 446 ms P-R-T Axes : 062 -27 -71 degrees QTc Int : 448 ms Normal sinus rhythm Left ventricular hypertrophy with repolarization abnormality marked ST/T changes c/w anterolateral and infferior ischemia Abnormal ECG When compared with ECG of 04-MAR-2020 11:26, (unconfirmed) T wave inversion more evident in Lateral leads and inferior leads Confirmed by Norris Montez ([id number]) on 03/05/2020 11:20:29 AM Referred By: REFERRED SELF Confirmed By:Norris Montez
[2020-03-05] MEDS: ATENOLOL 25 MG TABLET PO SCH (11:25)
--- NOTE | 2020-03-05 12:04 | Hospitalist Progress Note ---
Date of Service March 05, 2020 Assessment & Plan (1) Near syncope: (2) HTN (hypertension): (3) Abnormal EKG: (4) LVH (left ventricular hypertrophy): A 64-year-old female presents with near syncope. 1. Near syncope, anxiety, hypertensive urgency. Abnormal EKG EKG shows some T-wave inversions in inferior leads on admission. Atenolol was restarted 12.5 mg daily a couple of days ago. Continued home atenolol and added losartan 25 mg daily. BP improved. Troponin x3 - negative. Monitored on the tele. Tele reviewed - sinus rhythm in 60-90s. Echocardiogram obtained - moderate concentric LVH, No regional wall motion abnormality. LV F 55-60%. Mild tricuspid regurg. Doppler findings not suggestive of pulm. HTN. Repeat EKG this AM - evolving changes, now with deep T wave inversions in the precordial leads V3 to V6, T wave inversions in the inferior leads. While these findings may be door to door sales representative of underlying LVH, EKG changes have evolved, and certainly ischemia is a significant consideration. Cardiology consulted - had a thorough discussion with the pt about her EKG findings and further management. Pt is eager to be discharged from the hospital and follow up with cardiology as outpt. Close follow up to be arranged as well as outpt. nuclear stress test. 2. Hypertension. Blood pressure elevated on admission, further management as above. 3. History of anxiety and depression. Continue alprazolam for now. 4. History of asthma. Continue home inhalers and prednisone, recent possible ear infection. On exam, ear unremarkable. We will complete the azithromycin course. 5. DVT prophylaxis, SCDs. 6. Disposition: Plan to dc home w/ close follow up with cardiology - plan for outpt nuclear stress test. Admission and Anticipated Discharge Date Admission Date: March 04, 2020 Subjective Pt seen in follow up of dizziness, hypertension, abnormal EKG. Currently sitting up in bed in NAD. Says she feels better. Currently denies any chest pain, shortness of breath. Her BP improved. EKG still concerning and cardiology following, upon thorough discussion with the pt, plan for close outpt follow up and nuclear stress test. Pt is eager to be discharged from the hospital. Review of Systems Review of Systems: All systems reviewed & are unremarkable except as noted in HPI & below Constitutional: no fever and no chills Respiratory: no cough and no dyspnea Cardiovascular: no chest pain and no palpitations Gastrointestinal: no abdominal pain, no nausea and no vomiting Physical Exam Physical Exam: GENERAL: slim female pt, not in acute distress. HEENT: NC/AT, EOMI, PERRL NECK: No JVD. No neck masses. CARDIOVASCULAR: S1, S2, regular rate and rhythm, no murmur, no gallop. RESPIRATORY SYSTEM: Normal AP diameter. No accessory muscle use. No wheezing, no crackles. ABDOMEN: Soft, bowel sounds present, nontender. No distention. NEURO: alert and oriented x3, speech fluent, no facial asymmetry, Cranial nerves II-XII are grossly intact. Nonfocal. Moves extremities. EXTREMITIES: No edema, no erythema. Results & Data Results & Data ([facility]) Vital Signs (Past 12 Hours) Vital Signs Temp Pulse Pulse Resp BP Pulse Ox 03/05/20 11:07 36.8 C 81 18 121/74 98 03/05/20 07:32 60 03/05/20 07:07 36.7 C 61 18 121/74 94 03/05/20 03:00 36.4 C L 68 16 111/65 95 Laboratory Results 03/05/20 03/05/20 Range/Units 05:46 05:46 WBC 10.58 (4.8-10.8) K/uL RBC 4.32 (4.2-5.4) M/uL Hgb 13.7 (12.0-16.0) g/dL Hct 40.6 (37-47) % MCV 94.0 (80-100) fL MCH 31.7 (25-34) pg MCHC 33.7 (32-36) g/dL RDW Std Deviation 45.3 (36.4-46.3) fL RDW Coeff of Obey 13.1 (11.5-14.5) % Plt Count 201 (130-400) K/uL MPV 10.1 (7.4-10.4) fL Sodium 140 (136-145) mmol/L Potassium 4.1 (3.5-5.1) mmol/L Chloride 105 (98-107) mmol/L Carbon Dioxide 28 (21-32) mmol/L Anion Gap 7.0 (3-11) BUN 16 (7-18) mg/dl Creatinine 0.58 L (0.6-1.2) mg/dl Est Cr Clr Drug Dosing 86.8 ml/min Est GFR ( Amer) 114.5 Est GFR (Non-Af Amer) 98.8 BUN/Creatinine Ratio 27.9 H (10-20) Glucose 94 (70-99) mg/dl Calcium 9.3 (8.5-10.1) mg/dl Phosphorus 4.1 (2.5-4.9) mg/dl Magnesium 2.3 (1.8-2.4) mg/dl Medications Administered Current Inpatient Medications Acetaminophen (Acetaminophen 325 Mg Tab) 650 mg PO Q4H PRN PRN Reason: Pain or Fever Stop: 04/03/20 03:00 Last Admin: 03/05/20 08:41 Dose: 650 mg Documented by: Albuterol (Albuterol Hfa 8 Gm Inhaler) 2 puffs INH .Q4H PRN PRN Reason: Shortness Of Breath Stop: 04/03/20 03:00 Alprazolam (Alprazolam 0.5 Mg Tablet) 0.5 mg PO TID PRN PRN Reason: Anxiety Stop: 04/03/20 03:00 Last Admin: 03/05/20 08:41 Dose: 0.5 mg Documented by: Atenolol (Atenolol 25 Mg Tablet) 12.5 mg PO QDL [facility] Stop: 04/03/20 11:29 Last Admin: 03/05/20 11:25 Dose: 12.5 mg Documented by: Azithromycin (Azithromycin 250 Mg Tab) 250 mg PO DAILY@1600 [facility]; Protocol Stop: 03/14/20 15:59 Last Admin: 03/04/20 15:54 Dose: 250 mg Documented by: Lidocaine (Lidocaine 5% 1 Patch) 1 patch TD DAILY@1800 [facility] Stop: 04/03/20 17:59 Last Admin: 03/04/20 19:30 Dose: 1 patch Documented by: Losartan Potassium (Losartan Potassium 25 Mg Tab) 25 mg PO QAM [facility] Stop: 04/03/20 12:44 Last Admin: 03/05/20 08:41 Dose: 25 mg Documented by: Miscellaneous (Remove Lidoderm Patch) 1 ea N/A DAILY@0600 [facility] Stop: 04/04/20 05:59 Last Admin: 03/05/20 06:03 Dose: 1 ea Documented by: Nitroglycerin (Nitroglycerin Sl 0.4 Mg/Tab Tab) 0.4 mg SL UD PRN PRN Reason: Chest Pain Stop: 04/03/20 03:00 Ondansetron HCl (Ondansetron Inj 2 Mg/Ml 2 Ml Vial) 4 mg IV Q6H PRN PRN Reason: Nausea Stop: 04/03/20 03:00 Polyethylene Glycol (Polyethylene (Miralax) 17 Gm Pack) 17 gm PO DAILY PRN PRN Reason: Constipation Stop: 04/04/20 08:50 Last Admin: 03/05/20 09:35 Dose: 17 gm Documented by: Prednisone (Prednisone 5 Mg Tab) 5 mg PO DAILY@1600 [facility]; Protocol Stop: 04/03/20 15:59 Last Admin: 03/04/20 15:54 Dose: 5 mg Documented by:
--- NOTE | 2020-03-05 12:52 | Cardiology Progress Note ---
Date of Service March 05, 2020 Assessment & Plan (1) Near syncope: Subjective lightheadedness improved. Telemetry today reveals sinus rhythm in the range of 60 to 90 bpm. (2) HTN (hypertension): Blood pressure has improved. 25 mg daily. Losartan is a new medication (3) Abnormal EKG: The patient's EKG performed this morning at 647 continues to show evolving changes, now with deep T wave inversions in the precordial leads V3 to V6, T wave inversions in the inferior leads. While these findings may be maintenance representative of underlying left ventricular hypertrophy, EKG changes have evolved, and certainly ischemia is a significant consideration. Troponin I levels have been negative on a serial basis x3. Patient adamantly denies any symptoms of chest discomfort or shortness of breath at present. She describes that she walks regularly including walking up steps, with a stable degree of shortness of breath, and no recent chest discomfort. Her presenting symptoms not suggestive of angina. Her most recent lipid panel dates back to outpatient labs performed in 2017, and her cholesterol was relatively well controlled with total cholesterol 205, HDL 79, LDL 103. I had a alfred discussion with her with regards to her abnormal EKG, and my concerns with regards to her family history of underlying ischemic heart disease. We discussed options such as remaining in the hospital for definitive cardiac catheterization, or ongoing observation medical therapy, consideration of pharmacologic nuclear stress testing for further risk stratification. At present, she elects to proceed with discharge today assuming her blood pressure remains well controlled and she does not have recurrence of dizziness (OR new chest discomfort) and will arrange outpatient nuclear stress test and cardiology follow up. Admission and Anticipated Discharge Date Admission Date: March 04, 2020 Subjective Patient seen in cardiology follow-up of chief complaint of transient lightheadedness, and findings of hypertension, and abnormal EKG. She states that she feels much improved. Since addition of losartan, her blood pressures have trended toward significant improvement. Her most recent measurements include systolic blood pressures in the 120s, with 1 reading of 166/74. She denies chest discomfort or shortness of breath. Review of Systems Review of Systems: All systems reviewed & are unremarkable except as noted in HPI & below Physical Exam Physical Exam: Temp Pulse Resp BP Pulse Ox 36.8 C 68 18 166/74 H 98 03/05/20 12:33 03/05/20 12:33 03/05/20 12:33 03/05/20 12:33 03/05/20 12:33 Constitutional: WD/WN, vitals as above Respiratory: normal respiratory effort, lungs clear to auscultation Cardiovascular: RRR, no murmur, no edema Musculoskeletal: no cyanosis or clubbing, extremities motor strength 5/5 Neurologic: PERRL, EOMI, accommodation nl, no face palsy, no dysarthria Results & Data ([facility]) Vital Signs (Past 12 Hours) Vital Signs Temp Pulse Pulse Pulse Resp BP BP 03/05/20 12:33 36.8 C 68 81 18 121/74 166/74 H 03/05/20 11:07 36.8 C 81 18 121/74 03/05/20 07:32 60 03/05/20 07:07 36.7 C 61 18 121/74 03/05/20 03:00 36.4 C L 68 16 111/65 Pulse Ox 03/05/20 12:33 98 03/05/20 11:07 98 03/05/20 07:32 03/05/20 07:07 94 03/05/20 03:00 95 Laboratory Results CBC 03/05/20 Range/Units 05:46 WBC 10.58 (4.8-10.8) K/uL RBC 4.32 (4.2-5.4) M/uL Hgb 13.7 (12.0-16.0) g/dL Hct 40.6 (37-47) % Plt Count 201 (130-400) K/uL Comprehensive Metabolic Panel 03/05/20 Range/Units 05:46 Sodium 140 (136-145) mmol/L Potassium 4.1 (3.5-5.1) mmol/L Chloride 105 (98-107) mmol/L Carbon Dioxide 28 (21-32) mmol/L BUN 16 (7-18) mg/dl Creatinine 0.58 L (0.6-1.2) mg/dl Glucose 94 (70-99) mg/dl Calcium 9.3 (8.5-10.1) mg/dl Intake and Output 03/04/20 03/05/20 03/05/20 22:59 06:59 14:59 Intake Total 220 / 470 250 / 470 Balance 220 / 470 250 / 470 Intake: Oral 220 / 470 250 / 470 Other: Weight 59.1 kg 59.1 kg Weight Measurement Method Built in [facility] Patient Weight 03/06/20 06:59 Weight 59.1 kg
--- NOTE | 2020-03-05 15:56 | Discharge Summary ---
Date of Service March 05, 2020 Admission HPI Per Admitting Provider This is a 64-year-old female with past medical history significant for persistent asthma, chronic rhinosinusitis, COPD moderate, hypertension, reflux esophagitis, vitamin D deficiency, dysfunction of eustachian tube, depression, anxiety state, lives with her and grandkids, presents with near syncope. The patient says since she fell on the ice on 01/28/2020 she is not feeling good. She fell on the right side. She has right sided hip pain and also ear aches, more on the right side and she was recently started on Z-ROSALIND for possible ear infection. She also takes prednisone for her asthma. She is having dizziness, not feeling well, body aches, not feeling good since the fall and she was also recently in [facility] and workup was unremarkable. Today her symptoms got worse and she was very anxious and her blood pressure was very high and she was brought to the hospital .Her PCP recently started on atenolol a couple of days ago When she came in, her blood pressure was high, systolic in 190s, but right now resting comfortably and hemodynamically stable. Blood pressure improved. Her EKG showed some T-wave inversions in the inferior leads and so we called for admission. Currently, denies any chest pain, no shortness of breath, no cough, no headache, no blurred vision. Earaches are getting better. Some runny nose from her sinus, mild sore throat, no difficulty swallowing. Appetite is not great. She is always nauseous and always had some abdominal discomfort from her gallbladder disease, sometimes gets constipated. No blood in stools or black stools. Normal bladder movements. Admission Exam Per Admitting Provider GENERAL: The patient is of moderate built, not in acute distress. VITAL SIGNS: Temperature 36.8, pulse 102, respiratory rate 19, blood pressure 151/76, oxygen 96% on room air. HEENT: Pupils equal, round, reactive to light. NECK: No JVD. No neck masses. CARDIOVASCULAR: S1, S2, regular rate and rhythm, no murmur, no gallop. RESPIRATORY SYSTEM: Normal AP diameter. No accessory muscle use. No wheezing, no crackles. ABDOMEN: Soft, bowel sounds present, nontender. No distention. CENTRAL NERVOUS SYSTEM: Cranial nerves II-XII are grossly intact. Nonfocal. EXTREMITIES: No edema, no erythema. Principal Diagnosis Near syncope/ dizziness Abnormal EKG Hypertensive urgency Discharge Exam GENERAL: slim female pt, not in acute distress. HEENT: NC/AT, EOMI, PERRL NECK: No JVD. No neck masses. CARDIOVASCULAR: S1, S2, regular rate and rhythm, no murmur, no gallop. RESPIRATORY SYSTEM: Normal AP diameter. No accessory muscle use. No wheezing, no crackles. ABDOMEN: Soft, bowel sounds present, nontender. No distention. NEURO: alert and oriented x3, speech fluent, no facial asymmetry, Cranial nerves II-XII are grossly intact. Nonfocal. Moves extremities. EXTREMITIES: No edema, no erythema. Discharge Data Allergies Allergy/AdvReac Type Severity Reaction Status Date / Time Iodinated Contrast Media Allergy Severe SHORTNESS Verified 03/03/20 21:23 OF BREATH oxycodone Allergy Mild Verified 03/03/20 21:23 Sulfa (Sulfonamide Allergy Mild Verified 03/03/20 21:23 Antibiotics) Consultations 03/03/20 23:38 ED Decision to Admit Stat 03/04/20 03:01 Consult Case Management - Discharge Planning Routine 03/04/20 08:00 Consult Cardiology Routine Ordered Studies 03/03/20 20:24 CT cervical spine wo con Stat 03/03/20 20:25 CT head/brain wo con Stat Hospital Course (1) Near syncope: (2) HTN (hypertension): (3) Abnormal EKG: (4) LVH (left ventricular hypertrophy): A 64-year-old female presents with near syncope. 1. Near syncope, anxiety, hypertensive urgency. Abnormal EKG EKG shows some T-wave inversions in inferior leads on admission. Atenolol was restarted 12.5 mg daily a couple of days ago. Continued home atenolol and added losartan 25 mg daily. BP improved. Troponin x3 - negative. Monitored on the tele. Tele reviewed - sinus rhythm in 60-90s. Echocardiogram obtained - moderate concentric LVH, No regional wall motion abnormality. LV F 55-60%. Mild tricuspid regurg. Doppler findings not suggestive of pulm. HTN. Repeat EKG this AM - evolving changes, now with deep T wave inversions in the precordial leads V3 to V6, T wave inversions in the inferior leads. While these findings may be automobile rental representative of underlying LVH, EKG changes have evolved, and certainly ischemia is a significant consideration. Cardiology consulted - had a thorough discussion with the pt about her EKG findings and further management. Pt is eager to be discharged from the hospital and follow up with cardiology as outpt. Close follow up to be arranged as well as outpt. nuclear stress test. 2. Hypertension. Blood pressure elevated on admission, further management as above. 3. History of anxiety and depression. Continue alprazolam for now. 4. History of asthma. Continue home inhalers and prednisone, recent possible ear infection. On exam, ear unremarkable. We will complete the azithromycin course. 5. DVT prophylaxis, SCDs. 6. Disposition: Plan to dc home w/ close follow up with cardiology - plan for outpt nuclear stress test. Total Time Total Time Spent Total Time Spent (In Minutes): 40 Total Time Includes: Examination of the Patient, Discharge Planning, Medication Reconciliation and Communication With Other Providers Discharge Plan Discharge Items Patient Disposition: Home - Self-Care Reason For Visit: NEAR SYNCOPE Discharge Diagnosis: Near syncope/ dizziness Abnormal EKG Hypertensive urgency Activity: Per Instructions section Non-emergency contact: Primary Care Provider and Imaging Specialist Call non-emergency contact if: you have any medication questions and your symptoms worsen Follow-up/Referrals: Dylan Cortés MD [Primary Care Provider] - Diet: Heart Healthy Addtl Attending Provider Instructions: Follow up with cardiology as discussed. You will be scheduled for nuclear stress test. Take losartan 25 mg daily in addition to your other medications. Monitor your blood pressure at home and record these numbers, make sure to let your fabrication specialist or family doctor know about your blood pressure readings at your follow up appointments. Pending Studies at Discharge: No Stand-Alone Forms: [facility], Smoking Cessation Medications and DC Order Prescriptions: New losartan 25 mg Tablet 25 mg PO QAM 30 Days Qty: 30 RF: 0 Continued azithromycin 250 mg tablet 250 mg PO DAILY RF: 0 atenolol 25 mg tablet 12.5 mg PO QDL RF: 0 alprazolam 0.5 mg tablet 0.5 mg PO TID PRN (Reason: Anxiety) RF: 0 albuterol sulfate 90 mcg/actuation HFA aerosol inhaler 2 puff INHALATION .Q4H PRN (Reason: Shortness Of Breath) RF: 0 prednisone 5 mg tablet 5 mg PO DAILY RF: 0 Discharge Orders: Discharge Order (Routine); Ordered 03/05/20 Ordered By: Renato Bansal Admission Data Admit Date/Time: 03/04/20 15:07 Attending Provider: Renato Bansal Admit Provider: Isai Martin Primary Care Provider: Dylan Cortés Other Providers: Isai Martin ; Ash Chatterjee ; Devon Kaminski ; Evens Trinidad ; Chadd Marcum ; Prosper Meza ; Brayan Fernandez ; Trsiha Tellez ; Daniella Espinoza ; Xavi Hay Other Interventions: Discharge Summary Assessment (RN) Last Done: 03/05/20 12:33
== END 2020-03-05 15:03 | disposition home or self-care (01) ==
LOC: 2N 19:11 → ED 19:11 → 2N 03-04 02:35
DX: K21.9 Gastro-esophageal reflux disease without esophagitis; Z88.2 Allergy status to sulfonamides; E55.9 Vitamin D deficiency, unspecified; I51.7 Cardiomegaly; Z79.52 Long term (current) use of systemic steroids; Z79.899 Other long term (current) drug therapy; Z88.5 Allergy status to narcotic agent; R42 Dizziness and giddiness; Z91.041 Radiographic dye allergy status; I16.0 Hypertensive urgency; J44.9 Chronic obstructive pulmonary disease, unspecified; R94.31 Abnormal electrocardiogram [ECG] [EKG]

== ENCOUNTER 2021-10-28 13:44 | Inpatient (IN) ==
--- NOTE | 2021-10-28 15:08 | XRay Report ---
XR chest 1V not portable CLINICAL HISTORY: Fever TECHNIQUE: Single frontal radiograph of the chest was obtained. Comparison: Comparison is made to chest radiographs 05/12/2020 FINDINGS: No lines and tubes are seen. Cardiomegaly is noted. The lungs are clear. No evidence of pleural effus ion or pneumothorax. Stable scoliosis. IMPRESSION: No acute chest disease. ACT 112: Negative or not required by law. Electronically signed by: Isaac Parra M.D. 10/28/2021 3:07 PM
[2021-10-28 15:15] LABS: Hematocrit (blood only) 41.7 % (34.1-44.9); Hemoglobin 14.5 g/dl (12.0-16.0); Mean Corpuscular Hemoglobin 31.1 pg (25.0-34.0); Mean Corpuscular Hgb Conc 34.8 g/dL (32.0-36.0); Mean Corpuscular Volume 89.5 fL (80.0-100.0); Mean Platelet Volume 10.4 fL (9.4-12.3); Platelet Count 97 K/uL (130-400); RDW Coefficient of Variation 13.2 % (11.5-14.5); RDW Standard Deviation 43.5 fL (36.4-46.3); Red Blood Count 4.66 M/uL (3.93-5.22); White Blood Count 4.55 K/ul (4.8-10.8)
[2021-10-28 15:27] LABS: Albumin Globulin Ratio 1.3 (0.9-2); Albumin Level 3.9 gm/dl (3.4-5.0); BUN Creatinine Ratio 24.4 (10-20); Bilirubin,Total 1.3 mg/dl (0.2-1.0); Calcium 9.2 mg/dl (8.5-10.1); Creatinine Clr Calc Pharmacy 54.7 ml/min; Est GFR (African American) 82.7 ml/min; Est GFR (Non-African American) 71.4 ml/min; Globulin 3.1 gm/dl (2.5-4.0)
[2021-10-28 15:28] LABS: Basophils # (auto) 0.03 K/uL (0-0.2); Basophils % (auto) 0.7 %; Immature Granulocytes # (auto) 0.02 K/uL (0.00-0.02); Immature Granulocytes % (auto) 0.4 %; Lymphocytes # (auto) 0.64 K/uL (1.2-3.4); Lymphocytes % (auto) 14.1 %; Monocytes # (auto) 0.23 K/uL (0.24-0.82); Monocytes % (auto) 5.1 %; Neutrophils # (auto) 3.63 K/uL (1.4-6.5); Neutrophils % (auto) 79.7 %; Platelet Estimate Decreased (Normal); Toxic Vacuolation 1+
[2021-10-28 15:37] LABS: Influenza A virus by PCR Negative (Neg); Influenza B virus by PCR Negative (Neg); RSV by PCR Negative (Neg); SARS CoV2 RNA(COVID-19) InHosp NEGATIVE (Negative)
[2021-10-28] MEDS ORDERED: ONDANSETRON INJ 2 MG/ML 2 ML VIAL IV STA (16:40)
[2021-10-28] MEDS ORDERED: SODIUM CHLORIDE 0.9% 1000ML 1,000 ML IV ONE (16:40)
--- NOTE | 2021-10-28 16:49 | Emergency Department Note ---
Impression & Plan Acute Lyme disease, Nausea & vomiting, Leukopenia, Thrombocytopenia, Elevated LFTs, Elevated troponin ED Provider Note INFORMANT: Patient and ED PROVIDER(S): Dylan Michaels MD CHIEF COMPLAINT: Fever PLAN: Disposition: Admitted Condition: Good Outpatient prescription management: none Referral: None MEDICAL DECISION MAKING: Patient presented because febrile illness. She had a work-up initiated. She was found to have a leukopenia and thrombocytopenia. This raise concern for tickborne etiology. LFTs were mildly elevated as well. Patient had a left bundle branch on ECG however this was old. Patient troponin was mildly elevated. Lyme testing was performed and found to be positive. I discussed this with the patient. Anaplasmosis smear as well as babesiosis smear negative. Confirmation test pending for those. Patient was given IV Rocephin. COVID- negative. Given the findings I discussed further management in the hospital. Patient was in agreement. Consultation was made with the [facility] service. Patient was evaluated in the ER admitted for further management Triage Nursing notes reviewed and agree them. Vital Signs: reviewed and remarkable for no significant abnormalities Differential diagnosis: Viral syndrome, tickborne illness, otitis, pharyngitis, pneumonia, influenza, meningitis, urinary tract infection, sepsis, bacteremia, as well as other pathologies. Diagnostics interpreted by me: ECG: Ovate ECG reveals sinus tachycardia 102 bpm. Left bundle branch block is present. When compared to 06/06/2020 the left bundle branch block is new. When discussed with the patient the patient states that she has had a left bundle branch block in the past and has seen cardiology. Cardiac Monitoring: Cardiac monitoring ordered by me: The patient was placed on continuous cardiac monitoring and observed. It revealed a normal sinus rhythm at 89 beats per minute without ectopy or evidence of dysrhythmia. Imaging studies: Chest x-ray. Findings: A chest x-ray was performed and revealed no pneumothorax, effusion, infiltrate, pulmonary edema, free air under the diaphragm, or wide mediastinum. Impression: No acute disease. HPI: The patient is a 66year old female who presents to the Emergency Room with complaints of fever. This started 4 days ago and is persisting and as high as 102. Patient took home COVID test and were negative.. The patient also notes the following associated symptoms, poor appetite, nausea, feeling dehydrated, headache, malaise, vomiting. The patient has found no relieving factors. Current pain is rated as 0/10. Patient denies any sick contacts. Patient does spend a lot of time outdoors and is around a lot of animals. Pt denies LOC, diaphoresis, visual changes, neck pain, chest pain, breathing difficulties, abdominal pain, back pain, melena, hematochezia, urinary symptoms, numbness, weakness, lymphadenopathy, rash, or other complaints. ROS: See above HPI for pertinent positives & negatives. A total of 10 systems reviewed and were otherwise negative. PAST MEDICAL HISTORY:See Below , anxiety, hypertension, left bundle branch block PAST SURGICAL HISTORY:See Below, FAMILY HISTORY:See Below SOCIAL HISTORY:See Below, HOME MEDICATIONS:See Below ALLERGIES:See Below VITALS:See Below PHYSICAL EXAMINATION: GENERAL: Awake, alert, uncomfortable-appearing, in no distress HENT: Normocephalic, atraumatic. Oropharynx unremarkable. EYES: Normal conjunctiva. Sclera non-icteric. NECK: Inspection normal. Non-tender. Supple. No nuchal rigidity. FROM. No masses. RESPIRATORY: Clear to auscultation. No wheezes. No rales. Normal respiratory effort. CARDIAC: Normal rate. Normal rhythm. No murmurs. No rubs. Extremities warm and well perfused. Pulses equal. No JVD. GI: Soft, non-distended. No tenderness to palpation. No rebound or guarding. No masses. RECTAL: Deferred. MUSCULOSKELETAL: Atraumatic. Chest examination reveals no tenderness. The back is symmetrical on inspection without obvious abnormality. There is no CVA tenderness to palpation. No joint edema. LOWER EXTREMITIES: Calves are equal size bilaterally and non-tender. No edema. No discoloration. NEURO: Normal sensorium. No sensory or motor deficits noted. SKIN: No rash or jaundice noted. Dylan Michaels MD Past Med/Surg History Medical History Acute electrocardiogram changes Per 03/29/20 cardio note- pt with lateral repolarization changes consistent with possible ischemia or LVH while admitted 02/2020- had subsequent ECHO and stress test without issues. Anxiety Arthritis NECK-FULL ROM Asthma INHALER PRN Depression GERD (gastroesophageal reflux disease) HTN (hypertension) Insomnia LVH (left ventricular hypertrophy) F/U DR CHAVEZ MVP (mitral valve prolapse) PREMEDS WITH DENTAL Sinusitis ACUTE SOB (shortness of breath) on exertion Temporomandibular joint disorder CRACKS NO LOCKING Surgical History History of section X 2 History of open reduction and internal fixation (ORIF) procedure LEFT ARM History of tonsillectomy Social History Smoking Status: Never smoker Second Hand Exposure: Yes (FATHER SMOKED); Hx Alcohol Use: No Hx Substance Use: No Preferred Language: Slovenian Communication Ability: Effective Janitor Head Required: No Beliefs That Will Affect Care: None marital status: Current Living Situation: Spouse and Family Current Living Situation Comment: lives in 1 story home with and 13yo granddaughter Other Information That Helps Us Care for You: No Feels Safe at Home: Yes Safety Concerns: Feels Safe At This Time Assistive Devices: Glasses and Nebulizer Allergies Allergies Allergy/AdvReac Type Severity Reaction Status Date / Time Iodinated Contrast Media Allergy Severe SHORTNESS Verified 06/06/20 09:48 OF BREATH oxycodone Allergy Mild NAUSEA AND Verified 06/06/20 09:48 VOMITING,GOOFY Sulfa (Sulfonamide Allergy Mild DIDN'T Verified 06/06/20 09:48 Antibiotics) WORK-HIVES,SOB Antidepressants AdvReac Severe neuro Uncoded 06/06/20 09:48 changes Home Meds Home Medications Medication Instructions Recorded Confirmed albuterol sulfate 90 mcg/actuation 2 puff inhalation .Q4H PRN 03/03/20 10/28/21 aerosol inhaler Shortness Of Breath alprazolam 0.5 mg tablet 0.25 mg PO BID PRN Anxiety 03/03/20 10/28/21 prednisone 5 mg tablet 2.5 mg PO DAILY@1600 03/03/20 10/28/21 acetaminophen 500 mg tablet 1,000 mg PO Q6 PRN Pain 05/10/20 10/28/21 (Tylenol Extra Strength) fluticasone propionate 50 1 spray intranasal UD 06/06/20 10/28/21 mcg/actuation nasal spray,suspension losartan 50 mg tablet 25 mg PO DAILY 10/28/21 10/28/21 Results & Data (ED) Vital Signs Vital Signs - 24 hr 10/28/21 14:08 10/28/21 16:21 10/28/21 17:31 Temperature 37.0 C Temperature Source Temporal Artery Scan Pulse Rate 103 H 86 Pulse Rate [Right Finger] 89 Pulse Rhythm Regular Respiratory Rate 14 16 Respiratory Effort / Characteristics Respiratory Depth Blood Pressure 122/66 Blood Pressure [Right Arm] 114/60 Blood Pressure Mean 84 Blood Pressure Mean [Right Arm] 78 Pulse Oximetry 96 99 97 Oxygen Delivery Method Room Air Room Air Room Air Sepsis Recent Fever Within 48 Hours No Sepsis New/Unexplained Change in Mental Status No Sepsis Action Taken by Nursing No Action Required 10/28/21 17:31 10/28/21 18:12 10/28/21 18:22 Temperature Temperature Source Pulse Rate Pulse Rate [Right Finger] 83 90 90 Pulse Rhythm Respiratory Rate 16 16 17 Respiratory Effort / Characteristics Non-Labored Non-Labored Spontaneous Respiratory Depth Normal Normal Blood Pressure Blood Pressure [Right Arm] 118/73 93/64 L 115/57 L Blood Pressure Mean Blood Pressure Mean [Right Arm] 88 73 76 Pulse Oximetry 96 94 95 Oxygen Delivery Method Room Air Room Air Room Air Sepsis Recent Fever Within 48 Hours Sepsis New/Unexplained Change in Mental Status Sepsis Action Taken by Nursing 10/28/21 18:50 Temperature Temperature Source Pulse Rate 97 H Pulse Rate [Right Finger] Pulse Rhythm Respiratory Rate 16 Respiratory Effort / Characteristics Respiratory Depth Blood Pressure 149/58 H Blood Pressure [Right Arm] Blood Pressure Mean 88 Blood Pressure Mean [Right Arm] Pulse Oximetry 94 Oxygen Delivery Method Room Air Sepsis Recent Fever Within 48 Hours Sepsis New/Unexplained Change in Mental Status Sepsis Action Taken by Nursing Laboratory Data Result diagrams: 10/28/21 14:45 10/28/21 14:45 Lab Results 10/28/21 10/28/21 10/28/21 Range/Units 14:45 14:45 14:45 WBC 4.55 L (4.8-10.8) K/ul RBC 4.66 (3.93-5.22) M/uL Hgb 14.5 (12.0-16.0) g/dl Hct 41.7 (34.1-44.9) % MCV 89.5 (80.0-100.0) fL MCH 31.1 (25.0-34.0) pg MCHC 34.8 (32.0-36.0) g/dL RDW Std Deviation 43.5 (36.4-46.3) fL RDW Coeff of Obey 13.2 (11.5-14.5) % Plt Count 97 L (130-400) K/uL MPV 10.4 (9.4-12.3) fL Immature Gran % (Auto) 0.4 % Neut % (Auto) 79.7 % Lymph % (Auto) 14.1 % Cottle % (Auto) 5.1 % Eos % (Auto) 0.0 % Baso % (Auto) 0.7 % Neut # (Auto) 3.63 (1.4-6.5) K/uL Lymph # (Auto) 0.64 L (1.2-3.4) K/uL [place] # (Auto) 0.23 L (0.24-0.82) K/uL Eos # (Auto) 0.00 (0-0.50) K/uL Baso # (Auto) 0.03 (0-0.2) K/uL Immature Gran # (Auto) 0.02 (0.00-0.02) K/uL Toxic Vacuolation 1+ Platelet Estimate Decreased L (Normal) Sodium 132 L (136-145) mmol/L Potassium 4.0 (3.5-5.1) mmol/L Chloride 98 (98-107) mmol/L Carbon Dioxide 24 (21-32) mmol/L Anion Gap 10 (3-11) BUN 21 (6-23) mg/dl Creatinine 0.86 (0.6-1.2) mg/dl Est Cr Clr Drug Dosing 54.7 ml/min Est GFR ( Amer) 82.7 ml/min Est GFR (Non-Af Amer) 71.4 ml/min BUN/Creatinine Ratio 24.4 H (10-20) Glucose 87 (70-99(Fasting)) mg/dl Calcium 9.2 (8.5-10.1) mg/dl Total Bilirubin 1.3 H (0.2-1.0) mg/dl AST 153 H (13-39) U/L ALT 141 H (7-52) U/L Alkaline Phosphatase 228 H (34-104) U/L Troponin I High Sens (0-14) pg/ml Total Protein 7.0 (6.0-8.3) gm/dl Albumin 3.9 (3.4-5.0) gm/dl Globulin 3.1 (2.5-4.0) gm/dl Albumin/Globulin Ratio 1.3 (0.9-2) Anaplasma Smear Babesia Smear Lyme Disease IgG Ab (Negative) Lyme Disease IgM Ab (Negative) SARS-CoV-2 (PCR) NEGATIVE (Negative) Influenza Type A (PCR) Negative (Neg) Influenza Type B (PCR) Negative (Neg) RSV (RT-PCR) Negative (Neg) 10/28/21 10/28/21 10/28/21 Range/Units 14:45 16:49 16:49 WBC (4.8-10.8) K/ul RBC (3.93-5.22) M/uL Hgb (12.0-16.0) g/dl Hct (34.1-44.9) % MCV (80.0-100.0) fL MCH (25.0-34.0) pg MCHC (32.0-36.0) g/dL RDW Std Deviation (36.4-46.3) fL RDW Coeff of Obey (11.5-14.5) % Plt Count (130-400) K/uL MPV (9.4-12.3) fL Immature Gran % (Auto) % Neut % (Auto) % Lymph % (Auto) % Cottle % (Auto) % Eos % (Auto) % Baso % (Auto) % Neut # (Auto) (1.4-6.5) K/uL Lymph # (Auto) (1.2-3.4) K/uL [place]le # (Auto) (0.24-0.82) K/uL Eos # (Auto) (0-0.50) K/uL Baso # (Auto) (0-0.2) K/uL Immature Gran # (Auto) (0.00-0.02) K/uL Toxic Vacuolation Platelet Estimate (Normal) Sodium (136-145) mmol/L Potassium (3.5-5.1) mmol/L Chloride (98-107) mmol/L Carbon Dioxide (21-32) mmol/L Anion Gap (3-11) BUN (6-23) mg/dl Creatinine (0.6-1.2) mg/dl Est Cr Clr Drug Dosing ml/min Est GFR ( Amer) ml/min Est GFR (Non-Af Amer) ml/min BUN/Creatinine Ratio (10-20) Glucose (70-99(Fasting)) mg/dl Calcium (8.5-10.1) mg/dl Total Bilirubin (0.2-1.0) mg/dl AST (13-39) U/L ALT (7-52) U/L Alkaline Phosphatase (34-104) U/L Troponin I High Sens 27.6 H (0-14) pg/ml Total Protein (6.0-8.3) gm/dl Albumin (3.4-5.0) gm/dl Globulin (2.5-4.0) gm/dl Albumin/Globulin Ratio (0.9-2) Anaplasma Smear See Comment Babesia Smear See Comment Lyme Disease IgG Ab Negative (Negative) Lyme Disease IgM Ab Positive A (Negative) SARS-CoV-2 (PCR) (Negative) Influenza Type A (PCR) (Neg) Influenza Type B (PCR) (Neg) RSV (RT-PCR) (Neg) Administered Medications Alprazolam (Alprazolam 0.25 Mg Tablet) 0.25 mg PO BID PRN PRN Reason: Anxiety Stop: 11/27/21 21:50 Last Admin: 10/28/21 22:59 Dose: 0.25 mg Documented By: GREGORIO Sodium Chloride (Nss 1000ml) 1,000 mls @ 125 mls/hr IV .Q8H ANN Stop: 11/27/21 21:50 Last Admin: 10/28/21 22:00 Dose: 125 mls/hr Documented By: GREGORIO Losartan Potassium (Losartan Potassium 25 Mg Tab) 25 mg PO HS ANN Stop: 11/27/21 22:59 Last Admin: 10/28/21 23:32 Dose: 25 mg Documented By: GREGORIO Prednisone (Prednisone 2.5 Mg Tab) 2.5 mg PO HS ANN Stop: 11/27/21 22:59 Last Admin: 10/28/21 23:33 Dose: 2.5 mg Documented By: GREGORIO Discontinued Medications Sodium Chloride (Nss 1000ml) 1,000 mls @ 999 mls/hr IV .Q1H1M ONE Stop: 10/28/21 17:40 Last Infusion: 10/28/21 17:33 Dose: 0 mls/hr Documented By: Admin: 10/28/21 16:48 Dose: 999 mls/hr Documented By: LIBERTAD Ceftriaxone Sodium (Rocephin) 2,000 mg in 70 mls @ 140 mls/hr IV NOW STA Stop: 10/28/21 18:30 Last Infusion: 10/28/21 18:52 Dose: 0 mls/hr Documented By: Admin: 10/28/21 18:22 Dose: 140 mls/hr Documented By: ASW Ketorolac Tromethamine (Ketorolac Tromethamine 15 Mg/Ml Vial) 10 mg IV NOW ONE Stop: 10/28/21 17:26 Last Admin: 10/28/21 17:31 Dose: Not Given Documented By: ASW Ondansetron HCl (Ondansetron Inj 2 Mg/Ml 2 Ml Vial) 4 mg IV NOW STA Stop: 10/28/21 16:41 Last Admin: 10/28/21 16:48 Dose: Not Given Documented By: JAGRUTIW Imaging Data Radiologist's Impression: Chest X-Ray 10/28/21 14:12 XR chest 1V not portable CLINICAL HISTORY: Fever TECHNIQUE: Single frontal radiograph of the chest was obtained. Comparison: Comparison is made to chest radiographs 05/12/2020 FINDINGS: No lines and tubes are seen. Cardiomegaly is noted. The lungs are clear. No evidence of pleural effusion or pneumothorax. Stable scoliosis. IMPRESSION: No acute chest disease. ACT 112: Negative or not required by law. Electronically signed by: Isaac Parra M.D. 10/28/2021 3:07 PM Discharge Plan Visit Data Chief Complaint: Fever Stated Complaint: fever chills achey ED Provider: Dylan Michaels Discharge Problem: Acute Lyme disease, Nausea & vomiting, Leukopenia, Thrombocytopenia, Elevated LFTs, Elevated troponin Patient Disposition: Admitted As Inpatient Discharge Instructions Interventions: ED Discharge Assessment Last Done: 10/28/21 21:13
[2021-10-28] MEDS ORDERED: KETOROLAC TROMETHAMINE 15 MG/ML VIAL IV ONE (17:25)
[2021-10-28 17:42] LABS: Lyme Ab IgG w/WB Rflx Negative (Negative)
[2021-10-28 17:59] LABS: Lyme Ab IgM w/WB Rflx Positive (Negative)
[2021-10-28] MEDS ORDERED: cefTRIAXone SODIUM 2,000 MG/70 ML BAG IV STA (18:01)
--- NOTE | 2021-10-28 18:20 | History & Physical Report ---
Date of Service October 28, 2021 Assessment & Plan (1) Thrombocytopenia: (2) Leukopenia: (3) Nausea & vomiting: (4) Elevated LFTs: Plan: - Admit to med surg - EKG reviewed, LBBB noted on previous EKGs, has followed with Dr. Stanford as an outpatient - Suspected tick born illness with thrombocytopenia and lymphopenia on labs - Lyme tested positive, follow anaplasmosis and babesiosis with peripheral smear - Continue ceftriaxone IV, pt has previously not tolerated doxycycline due to severe GI upset - Continue reglan for antiemetic as QTC is 470 on most recent EKG - Cont NSS at 125 ml/hr - LFTs are elevated: AST 153, ALT 141, Alk phos 228 - Trop is 27.6, will trend Q6H but no cardiac symptoms (5) HTN (hypertension): Plan: - Continue losartan po (6) Anxiety: Plan: - May continue xanax as prescribed , PDMP reviewed (7) COPD (chronic obstructive pulmonary disease): Plan: - Hx of such, continue prednisone 2.5 mg daily PO DVT ppx: - teds, scds, no chemical prophylaxis secondary to thrombocytopenia CODE: Full Dispo: From home, likely to remain in the hospital x 1-2 days History of Present Illness Chief Complaint: Fever Primary Care Provider: Melinda Phelps PA-C This is a 66-year-old female with PMHx of severe persistent asthma, on chronic prednisone, COPD, HTN, THERESA, MDD who presents to the hospital with generalized ill feeling and fever x4 days. She reports having body aches, generalized malaise, poor p.o. intake and difficulty with nausea. She denies any chest pain, heaviness or palpitations. She does have chronic severe asthma for which she takes prednisone daily and has inhalers and nebulizers if she needs them at home. She denies any worsening shortness of breath recently. Of note she has had diarrhea with even minimal amounts of food/liquids she has tried to consume the past 4 days. In her experience, multiple medications do not sit well with her stomach and therefore she is fearful of taking new medications. Within that category, she has tried doxycycline before and had severe gastrointestinal upset and is adamant that she will not take it again. Doxy was used when she tested positive for Lyme's however had a negative Western blot associated with that test several years ago. She admits to being an outdoors person and has multiple animals that are inside and outside pets. She cannot recall any tick bite that she is aware of nor obvious bullseye rash. Her is present with her at bedside and supports the history. Her platelet count today is 97 compared to being 230 in April 2021, WBC is 4.55, TBili elevated at 1.3, AST 153, ALT 141, alk phos 228. Troponin slightly elevated at 27.6 compared to a previous test in April where it was 7. Allergies Allergy/AdvReac Type Severity Reaction Status Date / Time Iodinated Contrast Media Allergy Severe SHORTNESS Verified 06/06/20 09:48 OF BREATH oxycodone Allergy Mild NAUSEA AND Verified 06/06/20 09:48 VOMITING,GOOFY Sulfa (Sulfonamide Allergy Mild DIDN'T Verified 06/06/20 09:48 Antibiotics) WORK-HIVES,SOB Antidepressants AdvReac Severe neuro Uncoded 06/06/20 09:48 changes Home Medications Medication Instructions Recorded Confirmed Type albuterol sulfate 90 mcg/actuation 2 puff inhalation .Q4H PRN 03/03/20 10/28/21 History aerosol inhaler Shortness Of Breath alprazolam 0.5 mg tablet 0.25 mg PO BID PRN Anxiety 03/03/20 10/28/21 History prednisone 5 mg tablet 2.5 mg PO DAILY@1600 03/03/20 10/28/21 History acetaminophen 500 mg tablet 1,000 mg PO Q6 PRN Pain 05/10/20 10/28/21 History (Tylenol Extra Strength) fluticasone propionate 50 1 spray intranasal UD 06/06/20 10/28/21 History mcg/actuation nasal spray,suspension losartan 50 mg tablet 25 mg PO DAILY 10/28/21 10/28/21 History Past Med/Surg History Medical History Acute electrocardiogram changes Per 03/29/20 cardio note- pt with lateral repolarization changes consistent with possible ischemia or LVH while admitted 02/2020- had subsequent ECHO and stress test without issues. Anxiety Arthritis NECK-FULL ROM Asthma INHALER PRN Depression GERD (gastroesophageal reflux disease) HTN (hypertension) Insomnia LVH (left ventricular hypertrophy) F/U DR CHAVEZ MVP (mitral valve prolapse) PREMEDS WITH DENTAL Sinusitis ACUTE SOB (shortness of breath) on exertion Temporomandibular joint disorder CRACKS NO LOCKING Surgical History History of section X 2 History of open reduction and internal fixation (ORIF) procedure LEFT ARM History of tonsillectomy Social History Smoking Status: Never smoker Second Hand Exposure: Yes (FATHER SMOKED); Hx Alcohol Use: No Hx Substance Use: No Preferred Language: Turkmen Communication Ability: Effective Alumni Relations Officer Required: No Beliefs That Will Affect Care: None marital status: Current Living Situation: Spouse and Family Feels Safe at Home: Yes Assistive Devices: Glasses Review of Systems Review of Systems: Constitutional: + Fever, sweats, generalized malaise and weakness as per HPI Eyes: No diplopia, no worsening or blurred vision ENT: normal hearing, no trouble swallowing Respiratory: No cough, sputum, dyspnea at rest or on exertion Cardiovascular: No chest pain, tightness or palpitations Abdomen: No pain, + nausea, no vomiting, + diarrhea with loose BMs, no constipation Musculoskeletal: + Bilateral knee joint pain, no calf pain, swelling Neurologic: No weakness, numbness/tingling, or balance problems Psychiatric: + Anxiety and depression on medication Skin: No rash or itch Physical Exam Physical Exam: General: awake, alert, no apparent distress Head: Normocephalic, atraumatic ENT: PERRL, EOMI, no pharyngeal exudate, mucous membranes slightly dry Chest: Clear to auscultation, on room air, no adventitious breath sounds Cardiac: Regular rate and rhythm, no murmur, no JVD, normal peripheral pulses, good capillary refill Abdominal: Hyperactive BS x 4 quadrants, soft, nondistended, nontender to palpation, no rebound or guarding Extremities: Normal inspection, no peripheral edema or erythema, calfs nontender to palpation Psych: Normal mood and affect Neuro: AAO x 3, strength intact bilaterally and rated 5/5, no motor deficits, speech is clear, no peripheral sensory deficits Results & Data Results & Data ([facility]) Vital Signs (Past 12 Hours) Vital Signs Temp Pulse Pulse Resp BP BP Pulse Ox 10/28/21 18:12 90 16 93/64 L 94 10/28/21 17:31 83 16 118/73 96 10/28/21 17:31 86 97 10/28/21 16:21 89 16 114/60 99 10/28/21 14:08 37.0 C 103 H 14 122/66 96 O2 Del Method 10/28/21 18:12 Room Air 10/28/21 17:31 Room Air 10/28/21 17:31 Room Air 10/28/21 16:21 Room Air 10/28/21 14:08 Room Air Laboratory Results 10/28/21 10/28/21 10/28/21 16:49 16:49 14:45 WBC RBC Hgb Hct MCV MCH MCHC RDW Std Deviation RDW Coeff of Obey Plt Count MPV Immature Gran % (Auto) Neut % (Auto) Lymph % (Auto) [place] % (Auto) Eos % (Auto) Baso % (Auto) Neut # (Auto) Lymph # (Auto) [place] # (Auto) Eos # (Auto) Baso # (Auto) Immature Gran # (Auto) Toxic Vacuolation Platelet Estimate Sodium Potassium Chloride Carbon Dioxide Anion Gap BUN Creatinine Est Cr Clr Drug Dosing Est GFR ( Amer) Est GFR (Non-Af Amer) BUN/Creatinine Ratio Glucose Calcium Total Bilirubin AST ALT Alkaline Phosphatase Troponin I High Sens 27.6 H Total Protein Albumin Globulin Albumin/Globulin Ratio Anaplasma Smear See Comment Babesia Smear See Comment Lyme Disease IgG Ab Negative Lyme Disease IgM Ab Positive A SARS-CoV-2 (PCR) Influenza Type A (PCR) Influenza Type B (PCR) RSV (RT-PCR) 10/28/21 10/28/21 10/28/21 14:45 14:45 14:45 WBC 4.55 L RBC 4.66 Hgb 14.5 Hct 41.7 MCV 89.5 MCH 31.1 MCHC 34.8 RDW Std Deviation 43.5 RDW Coeff of Obey 13.2 Plt Count 97 L MPV 10.4 Immature Gran % (Auto) 0.4 Neut % (Auto) 79.7 Lymph % (Auto) 14.1 [place] % (Auto) 5.1 Eos % (Auto) 0.0 Baso % (Auto) 0.7 Neut # (Auto) 3.63 Lymph # (Auto) 0.64 L [place] # (Auto) 0.23 L Eos # (Auto) 0.00 Baso # (Auto) 0.03 Immature Gran # (Auto) 0.02 Toxic Vacuolation 1+ Platelet Estimate Decreased L Sodium 132 L Potassium 4.0 Chloride 98 Carbon Dioxide 24 Anion Gap 10 BUN 21 Creatinine 0.86 Est Cr Clr Drug Dosing 54.7 Est GFR ( Amer) 82.7 Est GFR (Non-Af Amer) 71.4 BUN/Creatinine Ratio 24.4 H Glucose 87 Calcium 9.2 Total Bilirubin 1.3 H AST 153 H ALT 141 H Alkaline Phosphatase 228 H Troponin I High Sens Total Protein 7.0 Albumin 3.9 Globulin 3.1 Albumin/Globulin Ratio 1.3 Anaplasma Smear Babesia Smear Lyme Disease IgG Ab Lyme Disease IgM Ab SARS-CoV-2 (PCR) NEGATIVE Influenza Type A (PCR) Negative Influenza Type B (PCR) Negative RSV (RT-PCR) Negative Diagnostic Findings Chest X-Ray 10/28/21 14:12 XR chest 1V not portable CLINICAL HISTORY: Fever TECHNIQUE: Single frontal radiograph of the chest was obtained. Comparison: Comparison is made to chest radiographs 05/12/2020 FINDINGS: No lines and tubes are seen. Cardiomegaly is noted. The lungs are clear. No evidence of pleural effusion or pneumothorax. Stable scoliosis. IMPRESSION: No acute chest disease. ACT 112: Negative or not required by law. Electronically signed by: Isaac Parra M.D. 10/28/2021 3:07 PM Code Status & VTE Plan Code Status Full code -discussed with the patient at bedside Supervising Physician Co-Signing Physician Notes Pt is a 66 y/o F with hx of HTN, Asthma/COPD, THERESA, depression, GERD, LBBB admitted for possible lyme disease PE: Mild distress, well developed Heart: Normal S1/S2, no murmur Lungs: CTA, no wheezing or crackles Abd: mild diffuse TTP, ND, soft Msk: No LE edema Psych: AAOX3, normal affect A/P: Lyme disease: -elevated LFTs, thrombocytopenia and leukopenia are likely 2/2 Lyme disease --- pt does not want to take doxy -will start pt on ceftriaxone -reglan for nausea -s/p NS bolus -encouraged PO -trop is slightly elevated but EKG similar to previous one ( NSR, LBBB) and denied any CP ---- will trend Trop -Repeat CBC and CMP Other chronic conditions: plan as above Agree with A/P by Joanne Dias PA-C
[2021-10-28] MEDS ORDERED: METOCLOPRAMIDE HCL INJ 5 MG/ML 2 ML VIAL IV PRN (21:51)
[2021-10-28] MEDS ORDERED: ALBUT/IPRATROP 3MG/0.5MG NEB 3 ML VIAL NEB PRN (21:51)
[2021-10-28] MEDS: SODIUM CHLORIDE 0.9% 1000ML 1,000 ML IV SCH (22:00)
[2021-10-28] MEDS: ALPRAZolam 0.25 MG TABLET PO PRN (22:59)
[2021-10-28] MEDS ORDERED: Nursing to Pharmacy Communication SCH (23:00)
[2021-10-28] MEDS: LOSARTAN POTASSIUM 25 MG TAB PO SCH (23:32)
[2021-10-28] MEDS: predniSONE 2.5 MG TAB PO SCH (23:33)
[2021-10-29 04:26] LABS: Calcium 8.1 mg/dl (8.5-10.1); Creatinine Clr Calc Pharmacy 78.4 ml/min; Est GFR (African American) 111.6 ml/min; Est GFR (Non-African American) 96.3 ml/min; Potassium 3.9 mmol/L (3.5-5.1)
[2021-10-29 04:33] LABS: Hematocrit (blood only) 33.2 % (34.1-44.9); Hemoglobin 11.4 g/dl (12.0-16.0); Mean Corpuscular Hemoglobin 31.3 pg (25.0-34.0); Mean Corpuscular Hgb Conc 34.3 g/dL (32.0-36.0); Mean Corpuscular Volume 91.2 fL (80.0-100.0); Mean Platelet Volume 10.8 fL (9.4-12.3); Platelet Count 75 K/uL (130-400); Platelet Estimate Decreased (Normal); RDW Coefficient of Variation 13.1 % (11.5-14.5); RDW Standard Deviation 43.8 fL (36.4-46.3); Red Blood Count 3.64 M/uL (3.93-5.22); White Blood Count 2.64 K/ul (4.8-10.8)
[2021-10-29] MEDS: SODIUM CHLORIDE 0.9% 1000ML 1,000 ML IV SCH ×3 (05:08→22:54)
[2021-10-29] MEDS: FLUTICASONE PROPIONATE NA SPR 16 GM BTL SCH (07:59)
[2021-10-29 08:31] LABS: Albumin Level 3.1 gm/dl (3.4-5.0); Bilirubin Direct 0.1 mg/dl (0-0.2); Bilirubin,Total 0.6 mg/dl (0.2-1.0); Total Protein 5.4 gm/dl (6.0-8.3)
[2021-10-29] MEDS ORDERED: LOSARTAN POTASSIUM 25 MG TAB PO SCH ×2 (09:00→21:00)
--- NOTE | 2021-10-29 09:43 | Hospitalist Progress Note ---
Date of Service October 29, 2021 Assessment & Plan (1) Thrombocytopenia: (2) Leukopenia: (3) Nausea & vomiting: (4) Elevated LFTs: (5) HTN (hypertension): (6) Anxiety: Plan This is a 66-year-old female who has a significant past medical history of severe persistent asthma, GERD, depression with anxiety and hypertension who presented to ED on 10/28/2021 secondary to persistent fever, malaise, fatigue and profuse watery diarrhea x4 days. In ED patient was found to have an acute thrombocytopenia, noted transaminitis, elevated troponin and positive Lyme IgM. There was concern for acute Lyme's disease and therefore she was admitted for IV Rocephin as she does not tolerate oral doxycycline. She has had minimal oral intake over the last 4 to 5 days due to nausea and diarrhea. Her peripheral smear was negative for inclusion bodies and therefore Anaplasma less likely. She did not meet SIRS or sepsis criteria on admission. Pancytopenia Febrile illness Diarrheal illness, nonbloody Possible Lyme's disease Anorexia Transaminitis Patient currently admitted to medical Empirically being treated with IV Rocephin Urine culture not yet collected CXR: no acute abnormality Obtain blood and stool cultures awaiting formal lyme testing No indication for abdominal imaging at this time, currently benign, consider if worsens continue IVF 125cc/hr downgrade to clear liquid diet, can advance when able to tolerate, but currently not even tolerating liquids obtain APAP level (pt reports heavy apap use 2/2 fever), Hepatitis panel (specifically looking for Hep A) ID consulted HTN hold losartan for now due to lack of oral intake bp stable, 125/68 Elevated troponin Chronic LBBB downtrending EKG w/o change, pt denies chest pain likely in setting of acute illness obtain echo Anxiety continue prn xanax Severe persistent Asthma continue chronic pred prn inhalers no acute exac DVT ppx: SCDS, TEDs given thrombocytopenia Dispo: remain hospitalized until etiology of illness determined, likely to d/c home when medically able PCP: Melinda Phelps Full Code Pt was seen and examined in collaboration with Dr. Johnston, please see addendum Admission and Anticipated Discharge Date Admission Date: October 28, 2021 Supervising Physician Co-Signing Physician Notes Is seen and examined independently. Patient seen and examined bedside. She is comfortably lying in the bed. She says her diarrhea is better compared to the presentation. She has 2 episodes of diarrhea since the morning. She says she feels less fatigue compared to her presentation. Assessment/plan Febrile Illness: Possibly tickborne illness "Anaplasmosis" or babesiosis. Patient has pancytopenia with low platelets and decrease in her hemoglobin and WBC count. Discussed with ID; recommend IV doxycycline, lab work sent for hemolytic work-up which includes LDH, haptoglobin, peripheral smear and reticulocyte count. Watery diarrhea; GI bio fire positive for enteropathogenic E. coli. We will continue with supportive care for now given that patient's diarrhea has improved. Subjective Patient was seen and examined in room 378-1. Follow up febrile llness. Pt states her sx started last . She developed fever, profound fatigue and diffuse watery diarrhea. She admits to having 100-125 loose/watery stools since that time. She denies any hematochezia. She has no sick contacts. She feels slightly improved from admission but still unable to tolerate po intake. Even when she drinks liquids, "it comes right back out." "I feel dirty back there from going so much." "I have never felt this sick." "I felt like I was going to on ." Only recent travel was to [place] approx 2 weeks ago. Does not recall eating anything out of the ordinary or didn't seem right. Up until hospital stay there was no recent antibiotic use or camping. She denies myalgias, rash or tick bite. Denies chest pain, sob, URI sx, cough, dysuria, increased urg/freq urination, hematuria, or melena. Pt started on IV Rocephin. Initial concern was for possible lyme disease. Review of Systems Review of Systems: All systems reviewed & are unremarkable except as noted in HPI & below Physical Exam Physical Exam: Gen: WD/WN, appears acutely ill, NAD, A&O x3 HEENT: Normocephalic, atraumatic, conjunctivae moist, sclerae anicteric, + darkened circles around eyes, appears dehydrated, mucous membranes dry Lung: Clear to Auscultation bilaterally, no wheezes/rales/rhonchi Heart: Regular rate, regular rhythm, no murmurs, rubs, or gallops Abdomen: Soft, +epigastric tenderness, ND +BS x 4, no rebound, guarding, rigidity or distension Extremities: No edema Skin: Warm, no rash, negative turgor. Results & Data Results & Data ([facility]) Vital Signs (Past 12 Hours) Vital Signs Temp Pulse Resp BP Pulse Ox O2 Del Method 10/29/21 07:19 37.4 C 82 16 125/68 92 Room Air 10/28/21 23:59 37.5 C 92 H 18 118/58 L 95 Room Air 10/28/21 21:45 37.7 C H 113 H 18 129/67 95 Room Air Laboratory Results Short CBC 10/28/21 10/29/21 Range/Units 14:45 03:58 WBC 4.55 L 2.64 L (4.8-10.8) K/ul Hgb 14.5 11.4 L D (12.0-16.0) g/dl Hct 41.7 33.2 L (34.1-44.9) % Plt Count 97 L 75 L (130-400) K/uL BMP 10/28/21 10/29/21 14:45 03:58 Sodium 132 L 132 L Potassium 4.0 3.9 Chloride 98 103 Carbon Dioxide 24 22 BUN 21 15 Creatinine 0.86 0.60 Glucose 87 85 Calcium 9.2 8.1 L Liver Function 10/28/21 10/29/21 Range/Units 14:45 07:47 Total Bilirubin 1.3 H 0.6 D (0.2-1.0) mg/dl Direct Bilirubin 0.1 (0-0.2) mg/dl AST 153 H 88 H (13-39) U/L ALT 141 H 91 H (7-52) U/L Alkaline Phosphatase 228 H 191 H (34-104) U/L Albumin 3.9 3.1 L (3.4-5.0) gm/dl Medications Administered Current Inpatient Medications Acetaminophen (Acetaminophen 500 Mg Tab) 1,000 mg PO Q6 PRN PRN Reason: Pain moderate or fever Stop: 11/27/21 21:50 Albuterol (Albut/Ipratrop 3mg/0.5mg Neb 3 Ml Vial) 3 ml NEB Q4R PRN; Protocol PRN Reason: shortness of breath Stop: 11/27/21 21:50 Alprazolam (Alprazolam 0.25 Mg Tablet) 0.25 mg PO BID PRN PRN Reason: Anxiety Stop: 11/27/21 21:50 Last Admin: 10/28/21 22:59 Dose: 0.25 mg Fluticasone Propionate (Fluticasone Propionate Na Spr 16 Gm Btl) 1 sprays NA DAILY ANN Stop: 11/28/21 08:59 Last Admin: 10/29/21 07:59 Dose: Not Given Ceftriaxone Sodium 2,000 mg/ (Dextrose) 70 mls @ 140 mls/hr IV Q24H ANN Stop: 11/07/21 17:59 Sodium Chloride (Nss 1000ml) 1,000 mls @ 125 mls/hr IV .Q8H ANN Stop: 11/27/21 21:50 Last Admin: 10/29/21 05:08 Dose: 125 mls/hr Famotidine 20 mg/ Syringe 5 mls @ 2.5 mls/min IV BID ANN Stop: 11/28/21 09:29 Losartan Potassium (Losartan Potassium 25 Mg Tab) 25 mg PO HS ANN Stop: 11/27/21 22:59 Last Admin: 10/28/21 23:32 Dose: 25 mg Metoclopramide HCl (Metoclopramide Hcl Inj 5 Mg/Ml 2 Ml Vial) 10 mg IV Q6H PRN PRN Reason: Nausea Stop: 11/27/21 21:50 Prednisone (Prednisone 2.5 Mg Tab) 2.5 mg PO HS ANN Stop: 11/27/21 22:59 Last Admin: 10/28/21 23:33 Dose: 2.5 mg
[2021-10-29] MEDS: ACETAMINOPHEN 500 MG TAB PO PRN (10:04)
[2021-10-29] MEDS ORDERED: MAGNESIUM SULFATE / D5W 1 GM/100 ML BAG IV ONE (10:45)
[2021-10-29] MEDS: FAMOTIDINE 20 MG in SYRINGE 3 ML IV SCH ×2 (11:25→20:04)
--- NOTE | 2021-10-29 12:44 | Electrocardiogram Report ---
Test Reason : Blood Pressure : / mmHG Vent. Rate : 102 BPM Atrial Rate : 102 BPM P-R Int : 138 ms QRS Dur : 136 ms QT Int : 360 ms P-R-T Axes : 050 019 188 degrees QTc Int : 469 ms Poor data quality, interpretation may be adversely affected Sinus tachycardia Left bundle branch block Abnormal ECG When compared with ECG of 06-JUN-2020 09:14, Vent. rate has increased BY 48 BPM Left bundle branch block is now Present Confirmed by Enrique You ([id number]) on 10/29/2021 12:44:33 PM Referred By: Confirmed By:Enrique You
--- NOTE | 2021-10-29 13:37 | Electrocardiogram Report ---
Test Reason : Blood Pressure : / mmHG Vent. Rate : 088 BPM Atrial Rate : 088 BPM P-R Int : 162 ms QRS Dur : 144 ms QT Int : 390 ms P-R-T Axes : 045 027 167 degrees QTc Int : 471 ms Normal sinus rhythm Left bundle branch block Abnormal ECG When compared with ECG of 28-OCT-2021 14:37, (unconfirmed) T wave inversion less evident in Lateral leads Confirmed by Enrique oYu ([id number]) on 10/29/2021 1:36:46 PM Referred By: REFERRED SELF Confirmed By:Enrique You
[2021-10-29] MEDS: ALPRAZolam 0.25 MG TABLET PO PRN ×2 (13:46→22:55)
[2021-10-29 13:52] LABS: Adenovirus F 40/41 PCR Not Detected (NotDetected); Astrovirus PCR Not Detected (NotDetected); Campylobacter PCR Not Detected (NotDetected); Clostridium diff Toxin A/B PCR Not Detected (NotDetected); Cryptosporidium PCR Not Detected (NotDetected); Cyclospora cayetanensis PCR Not Detected (NotDetected); Entamoeba histolytica PCR Not Detected (NotDetected); Enteroaggregative E.coli(EAEC) Not Detected (NotDetected); Enterotoxigenic E.coli (ETEC) Not Detected (NotDetected); Giardia lamblia PCR Not Detected (NotDetected); Norovirus GI/GII PCR Not Detected (NotDetected); Plesiomonas shigelloides PCR Not Detected (NotDetected); Rotavirus A PCR Not Detected (NotDetected); Salmonella PCR Not Detected (NotDetected); Sapovirus PCR Not Detected (NotDetected); Shiga-like Toxin E.coli (STEC) Not Detected (NotDetected); Shigella/Enteroinvasive E.coli Not Detected (NotDetected); Vibrio cholerae PCR Not Detected (NotDetected); Vibrio species PCR Not Detected (NotDetected); Yersinia enterocolitica PCR Not Detected (NotDetected)
[2021-10-29 14:26] LABS: Enteropathogenic E.coli (EPEC) DETECTED (NotDetected)
[2021-10-29] MEDS ORDERED: LOPERAMIDE HCL 2 MG CAP PO PRN (14:58)
[2021-10-29] MEDS: DOXYCYCLINE HYCLATE 100 MG in DEXTROSE 5% 100 ML IV SCH (15:13)
[2021-10-29 15:34] LABS: Reticulocyte % 0.7 % (0.5-2.0); Reticulocytes # 0.03 10^6/uL (0.02-0.10)
[2021-10-29] MEDS ORDERED: predniSONE 2.5 MG TAB PO SCH (16:00)
[2021-10-29] MEDS ORDERED: cefTRIAXone SODIUM 1,000 MG in DEXTROSE 5% 50 ML IV SCH (18:00)
[2021-10-29] MEDS ORDERED: cefTRIAXone SODIUM 2,000 MG in DEXTROSE 5% 50 ML IV SCH (18:00)
[2021-10-29] MEDS: predniSONE 2.5 MG TAB PO SCH (20:05)
[2021-10-30] MEDS: ACETAMINOPHEN 500 MG TAB PO PRN ×2 (02:01→17:19)
[2021-10-30] MEDS: DOXYCYCLINE HYCLATE 100 MG in DEXTROSE 5% 100 ML IV SCH ×2 (02:18→14:37)
[2021-10-30] MEDS: SODIUM CHLORIDE 0.9% 1000ML 1,000 ML IV SCH ×2 (08:08→14:37)
[2021-10-30 08:09] LABS: Hematocrit (blood only) 32.4 % (34.1-44.9); Hemoglobin 11.1 g/dl (12.0-16.0); Mean Corpuscular Hemoglobin 31.4 pg (25.0-34.0); Mean Corpuscular Hgb Conc 34.3 g/dL (32.0-36.0); Mean Corpuscular Volume 91.5 fL (80.0-100.0); Mean Platelet Volume 10.8 fL (9.4-12.3); Platelet Count 77 K/uL (130-400); RDW Coefficient of Variation 13.2 % (11.5-14.5); RDW Standard Deviation 44.8 fL (36.4-46.3); Red Blood Count 3.54 M/uL (3.93-5.22); White Blood Count 3.56 K/ul (4.8-10.8)
[2021-10-30] MEDS: FLUTICASONE PROPIONATE NA SPR 16 GM BTL SCH (08:09)
[2021-10-30] MEDS: ALPRAZolam 0.25 MG TABLET PO PRN ×2 (08:18→22:47)
[2021-10-30] MEDS: FAMOTIDINE 20 MG in SYRINGE 3 ML IV SCH ×2 (08:18→19:55)
[2021-10-30 08:26] LABS: Albumin Globulin Ratio 1.2 (0.9-2); BUN Creatinine Ratio 11.1 (10-20); Bilirubin,Total 0.5 mg/dl (0.2-1.0); Calcium 8.2 mg/dl (8.5-10.1); Creatinine Clr Calc Pharmacy 87.1 ml/min; Est GFR (African American) 115.6 ml/min; Est GFR (Non-African American) 99.7 ml/min; Globulin 2.5 gm/dl (2.5-4.0); Magnesium 1.7 mg/dl (1.7-2.4); Potassium 3.9 mmol/L (3.5-5.1); Total Protein 5.5 gm/dl (6.0-8.3)
[2021-10-30 09:09] LABS: Basophils # (auto) 0.02 K/uL (0-0.2); Basophils % (auto) 0.6 %; Eosinophils # (auto) 0.02 K/uL (0-0.50); Eosinophils % (auto) 0.6 %; Immature Granulocytes # (auto) 0.02 K/uL (0.00-0.02); Immature Granulocytes % (auto) 0.6 %; Lymphocytes % (auto) 42.1 %; Monocytes # (auto) 0.29 K/uL (0.24-0.82); Monocytes % (auto) 8.1 %; Neutrophils # (auto) 1.71 K/uL (1.4-6.5)
--- NOTE | 2021-10-30 14:50 | Hospitalist Progress Note ---
Date of Service October 30, 2021 Assessment & Plan (1) Thrombocytopenia: (2) Leukopenia: (3) Nausea & vomiting: (4) Elevated LFTs: (5) HTN (hypertension): (6) Anxiety: Plan This is a 66-year-old female who has a significant past medical history of severe persistent asthma, GERD, depression with anxiety and hypertension who presented to ED on 10/28/2021 secondary to persistent fever, malaise, fatigue and profuse watery diarrhea x4 days. In ED patient was found to have an acute thrombocytopenia, noted transaminitis, elevated troponin and positive Lyme IgM. There was concern for acute Lyme's disease and therefore she was admitted for IV Rocephin as she does not tolerate oral doxycycline. She has had minimal oral intake over the last 4 to 5 days due to nausea and diarrhea. Her peripheral smear was negative for inclusion bodies and therefore Anaplasma less likely. She did not meet SIRS or sepsis criteria on admission. Pancytopenia Febrile illness Diarrheal illness, nonbloody Possible Lyme's disease Anorexia Transaminitis Patient currently admitted to medical Empirically being treated with IV Rocephin, transitioned to IV doxy to cover for anaplasma UA negative CXR: no acute abnormality Blood cultures: ngtd Stool: + EPEC awaiting formal lyme testing, anaplasma and babesiosis - per lab anaplasma should return 11/03, WB likely in a few days and babesia can take up to a week decrease IVF to 75cc/hr, consider d/c if diarrhea completely resolved tolerating diet APAP WNL, Hepatitis panel pending(specifically looking for Hep A) ID consulted who recommended IV doxy and hemolytic anemia w/u Peripheral smear: not concerning for hemolysis, lyme not typical for pancytopenia, would recommend OP f/u labs in 3-4 weeks, if still not improving obtain HEME consult as OP HTN hold losartan for now due to lack of oral intake bp stable, 125/68 Elevated troponin Chronic LBBB downtrending EKG w/o change, pt denies chest pain likely in setting of acute illness Echo: EF 50-55%, mild LVH, septal motion consistent with conduction abnormality, mild aortic regurg, trace TR, estimated PASP 37mmhg Anxiety continue prn xanax Severe persistent Asthma continue chronic pred prn inhalers no acute exac DVT ppx: SCDS, TEDs given thrombocytopenia Dispo: remain hospitalized, likely d/c in next day or so, awaiting formal lyme serologies; however these may take several takes to return PCP: Melinda Ramirezaltagracia Full Code Pt was seen and examined in collaboration with Dr. Johnston, please see addendum Admission and Anticipated Discharge Date Admission Date: October 28, 2021 Supervising Physician Co-Signing Physician Notes Is seen and examined independently. Patient seen and examined bedside. She states she is feeling better compared to her presentation. She says her stool has started to form and no longer has liquidy. She is tolerating oral doxycyline. Assessment/plan Febrile Illness: Possibly tickborne illness "Anaplasmosis" or babesiosis. Patient has pancytopenia with low platelets and decrease in her hemoglobin and WBC count. Hemolytic work up- LDH midly elevated, Reticulocyte count- 0.7%. Peripheral blood smear- no signs of hemolysis. Haptoglobin pending. Discussed with ID; recommend IV doxycycline. Further recommendation to follow after obtain confirmatory test. Dr. Feliciano to be updated. Liver enzymes downtrending today but not back to baseline. Hepatitis panel negative. Watery diarrhea; GI bio fire positive for enteropathogenic E. coli. We will continue with supportive care for now given that patient's diarrhea has improved. Continue on iv fluids for now. Subjective Patient was seen and examined in room 378-1. Follow up febrile llness. 10/29/21: Pt states her sx started last . She developed fever, profound fatigue and diffuse watery diarrhea. She admits to having 100-125 loose/watery stools since that time. She denies any hematochezia. She has no sick contacts. She feels slightly improved from admission but still unable to tolerate po intake. Even when she drinks liquids, "it comes right back out." "I feel dirty back there from going so much." "I have never felt this sick." "I felt like I was going to on ." Only recent travel was to [place] approx 2 weeks ago. Does not recall eating anything out of the ordinary or didn't seem right. Up until hospital stay there was no recent antibiotic use or camping. She denies myalgias, rash or tick bite. Denies chest pain, sob, URI sx, cough, dysuria, increased urg/freq urination, hematuria, or melena. 10/30/21: Pt is feeling improved today. Stool has slowed and upon my visit she has not had a BM yet today. Yesterday she did not two episodes of bright red blood with stool. Denies f/c/s, chest pain, sob, n/v/d, abd pain. She is tolerating diet. Continues with IVF. Review of Systems Review of Systems: All systems reviewed & are unremarkable except as noted in HPI & below Physical Exam Physical Exam: Gen: WD/WN, appears acutely ill but improved from yesterday. NAD, A&O x3 HEENT: Normocephalic, atraumatic, conjunctivae moist, sclerae anicteric, Lung: Clear to Auscultation bilaterally, no wheezes/rales/rhonchi Heart: Regular rate, regular rhythm, no murmurs, rubs, or gallops Abdomen: Soft, NT, ND +BS x 4, no rebound, guarding, rigidity or distension Extremities: No edema Skin: Warm, no rash, negative turgor. Results & Data Results & Data ([facility]) Vital Signs (Past 12 Hours) Vital Signs Temp Pulse Resp BP Pulse Ox O2 Del Method 10/30/21 08:00 36.8 C 73 16 130/68 92 Room Air Laboratory Results Short CBC 10/30/21 Range/Units 07:40 WBC 3.56 L (4.8-10.8) K/ul Hgb 11.1 L (12.0-16.0) g/dl Hct 32.4 L (34.1-44.9) % Plt Count 77 L (130-400) K/uL BMP 10/30/21 07:40 Sodium 138 Potassium 3.9 Chloride 108 H Carbon Dioxide 26 BUN 6 Creatinine 0.54 L Glucose 92 Calcium 8.2 L Liver Function 10/30/21 Range/Units 07:40 Total Bilirubin 0.5 (0.2-1.0) mg/dl AST 75 H (13-39) U/L ALT 80 H (7-52) U/L Alkaline Phosphatase 164 H (34-104) U/L Albumin 3.0 L (3.4-5.0) gm/dl Medications Administered Current Inpatient Medications Acetaminophen (Acetaminophen 500 Mg Tab) 1,000 mg PO Q6 PRN PRN Reason: Pain moderate or fever Stop: 10/18/22 21:50 Last Admin: 10/30/21 02:01 Dose: 1,000 mg Albuterol (Albut/Ipratrop 3mg/0.5mg Neb 3 Ml Vial) 3 ml NEB Q4R PRN; Protocol PRN Reason: shortness of breath Stop: 11/27/21 21:50 Alprazolam (Alprazolam 0.25 Mg Tablet) 0.25 mg PO BID PRN PRN Reason: Anxiety Stop: 11/27/21 21:50 Last Admin: 10/30/21 08:18 Dose: 0.25 mg Fluticasone Propionate (Fluticasone Propionate Na Spr 16 Gm Btl) 1 sprays NA DAILY ANN Stop: 11/28/21 08:59 Last Admin: 10/30/21 08:09 Dose: Not Given Sodium Chloride (Nss 1000ml) 1,000 mls @ 125 mls/hr IV .Q8H ANN Stop: 11/27/21 21:50 Last Admin: 10/30/21 14:37 Dose: 125 mls/hr Famotidine 20 mg/ Syringe 5 mls @ 2.5 mls/min IV BID ANN Stop: 11/28/21 09:29 Last Admin: 10/30/21 08:18 Dose: 2.5 mls/min Doxycycline Hyclate 100 mg/ (Dextrose) 110 mls @ 50 mls/hr IV Q12H ANN Stop: 11/05/21 13:59 Last Admin: 10/30/21 14:37 Dose: 50 mls/hr Loperamide HCl (Loperamide Hcl 2 Mg Cap) 2 mg PO Q4H PRN PRN Reason: diarrhea Stop: 11/28/21 14:57 Losartan Potassium (Losartan Potassium 25 Mg Tab) 25 mg PO HS ANN Stop: 11/27/21 22:59 Last Admin: 10/28/21 23:32 Dose: 25 mg Metoclopramide HCl (Metoclopramide Hcl Inj 5 Mg/Ml 2 Ml Vial) 10 mg IV Q6H PRN PRN Reason: Nausea Stop: 11/27/21 21:50 Prednisone (Prednisone 2.5 Mg Tab) 2.5 mg PO HS ANN Stop: 11/27/21 22:59 Last Admin: 10/29/21 20:05 Dose: 2.5 mg
[2021-10-30 15:16] LABS: HBSAG NON-REACTIVE (NON-REACTIVE); Hepatitis A Antibody IgM NON-REACTIVE (NON-REACTIVE); Hepatitis A Antibody Total NON-REACTIVE (NON-REACTIVE); Hepatitis B Core Antibody IgM NON-REACTIVE (NON-REACTIVE)
[2021-10-30 15:41] LABS: 18KDIGG Band NON-REACTIVE; 23KDIGG Band NON-REACTIVE; 23KDIGM Band NON-REACTIVE; 28KDIGG Band NON-REACTIVE; 30KDIGG Band NON-REACTIVE; 39KDIGG Band NON-REACTIVE; 39KDIGM Band NON-REACTIVE; 41KDIGG Band REACTIVE; 41KDIGM Band NON-REACTIVE; 45KDIGG Band NON-REACTIVE; 58KDIGG Band NON-REACTIVE; 66KDIGG Band NON-REACTIVE; 93KDIGG Band NON-REACTIVE; Lyme Antibodies, WB IgG NEGATIVE (NEGATIVE); Lyme Antibodies, WB IgM NEGATIVE (NEGATIVE)
[2021-10-30] MEDS: predniSONE 2.5 MG TAB PO SCH (19:55)
[2021-10-30 20:36] LABS: Appearance Urine Clear (Clear); Bilirubin Urine Negative (Negative); Blood Urine Negative (Negative); Color Urine Yellow; Glucose Urine UA Negative (Negative); Ketones Urine Negative (Negative); Leukocyte Esterase Urine Negative (Negative); Nitrite Urine Negative (Negative); Protein Urine Negative (Negative); Specific Gravity Urine 1.008 (1.000-1.030); Urobilinogen Urine Negative (Negative); pH Urine 5.5 (4.5-7.5)
[2021-10-31] MEDS: DOXYCYCLINE HYCLATE 100 MG in DEXTROSE 5% 100 ML IV SCH (02:00)
[2021-10-31] MEDS: SODIUM CHLORIDE 0.9% 1000ML 1,000 ML IV SCH (05:32)
[2021-10-31] MEDS: FAMOTIDINE 20 MG in SYRINGE 3 ML IV SCH ×2 (07:57→20:48)
[2021-10-31] MEDS: FLUTICASONE PROPIONATE NA SPR 16 GM BTL SCH (07:57)
[2021-10-31 17:47] LABS: Babesia microti DNA Not Detected (Not Detected)
--- NOTE | 2021-10-31 18:06 | Hospitalist Progress Note ---
Date of Service October 31, 2021 Assessment & Plan (1) Thrombocytopenia: (2) Leukopenia: (3) Nausea & vomiting: (4) Elevated LFTs: (5) HTN (hypertension): (6) Anxiety: Plan Patient is a 66 yr female with H/O severe persistent asthma, GERD, depression with anxiety and hypertension who presented to ED on 10/28/2021 secondary to persistent fever, malaise, fatigue and profuse watery diarrhea x4 days. Suspected Tick Borne Illness DD: Lyme's disease, Anaplasmosis, Babesia Enteropathogenic E. coli infection Presented with Acute thrombocytopenia, transaminitis, elevated troponin and positive Lyme IgM Peripheral smear was negative for inclusion bodies Pancytopenia --Hepatitis panel negative Anaplasma DNA pending Stool culture positive for EPEC Was initially on IV Rocephin, transitioned to Doxycycline UA Negative for UTI CXR: no acute abnormality Blood cultures: Negative to date ID consulted who recommended doxy and hemolytic anemia w/u Peripheral smear: not concerning for hemolysis, lyme not typical for pancytopenia, would recommend OP f/u labs in 3-4 weeks, if still not improving obtain HEME consult as OP LFTs, thrombocytopenia slowly improving Hypomagnesemia Replace as needed Hyponatremia Likely due to GI losses Sodium levels improved Monitor HTN Resume losartan Monitor Elevated troponin Chronic LBBB EKG w/o change, pt denies chest pain likely in setting of acute illness Echo: EF 50-55%, mild LVH, septal motion consistent with conduction ab normality, mild aortic regurg, trace TR, estimated PASP 37mmhg Anxiety continue prn xanax Severe persistent Asthma continue chronic prednisone prn inhalers no signs of exacerbation DVT Px: SCDS, TEDs Re: Thrombocytopenia Code Status Full Code Admission and Anticipated Discharge Date Admission Date: October 28, 2021 Subjective Patient is seen and examined at bedside States feeling much better today Diarrhea resolved Denies any chest pain, shortness of breath, dizziness, nausea, abdominal pain Family at bedside Eager to get discharged Review of Systems Review of Systems: All systems reviewed & are unremarkable except as noted in Subjective Physical Exam Physical Exam: Physical Exam: Vitals signs as noted above General Appearance:Moderately built and nourished, no apparent distress Head: normocephalic, Atraumatic Eyes: normal inspection, EOMI Neck: supple, Trachea midline Respiratory/Chest: Normal breath sounds, CTA, No accessory muscle use Cardiovascular: S1, S2, No murmur Abdomen/GI:Soft, Non tender, Bowel sounds present Extremities/Musculoskeletal:normal inspection, no edema Neurologic/Psych:AAOX3, grossly no focal neurological deficits Skin: normal color, warm Results & Data Results & Data ([facility]) Vital Signs (Past 12 Hours) Vital Signs Temp Pulse Resp BP Pulse Ox O2 Del Method 10/31/21 14:12 36.7 C 94 H 18 149/78 H 96 Room Air 10/31/21 07:03 37.1 C 86 16 136/70 92 Room Air Laboratory Results Urine 10/30/21 Range/Units 19:51 Urine Color Yellow Urine Appearance Clear (Clear) Urine pH 5.5 (4.5-7.5) Ur Specific [place] 1.008 (1.000-1.030) Urine Protein Negative (Negative) Urine Glucose (UA) Negative (Negative)
[2021-10-31] MEDS: ALPRAZolam 0.25 MG TABLET PO PRN (20:48)
[2021-10-31] MEDS: LOSARTAN POTASSIUM 25 MG TAB PO SCH (20:49)
[2021-10-31] MEDS: predniSONE 2.5 MG TAB PO SCH (20:49)
[2021-10-31] MEDS: DOXYCYCLINE HYCLATE 100 MG CAP PO SCH (20:49)
[2021-11-01 07:12] LABS: Albumin Globulin Ratio 1.2 (0.9-2); Albumin Level 3.2 gm/dl (3.4-5.0); BUN Creatinine Ratio 13.2 (10-20); Bilirubin,Total 0.5 mg/dl (0.2-1.0); Calcium 8.7 mg/dl (8.5-10.1); Creatinine Clr Calc Pharmacy 88.7 ml/min; Est GFR (African American) 116.3 ml/min; Est GFR (Non-African American) 100.3 ml/min; Globulin 2.7 gm/dl (2.5-4.0); Magnesium 1.7 mg/dl (1.7-2.4); Potassium 3.9 mmol/L (3.5-5.1); Total Protein 5.9 gm/dl (6.0-8.3)
[2021-11-01 07:13] LABS: Hemoglobin 11.2 g/dl (12.0-16.0); Mean Corpuscular Hemoglobin 31.7 pg (25.0-34.0); Mean Corpuscular Volume 90.7 fL (80.0-100.0); Mean Platelet Volume 10.6 fL (9.4-12.3); Platelet Count 144 K/uL (130-400); RDW Coefficient of Variation 13.2 % (11.5-14.5); RDW Standard Deviation 44.2 fL (36.4-46.3); Red Blood Count 3.53 M/uL (3.93-5.22); White Blood Count 5.16 K/ul (4.8-10.8)
[2021-11-01] MEDS: FLUTICASONE PROPIONATE NA SPR 16 GM BTL SCH (09:16)
[2021-11-01] MEDS: DOXYCYCLINE HYCLATE 100 MG CAP PO SCH (09:16)
[2021-11-01] MEDS: FAMOTIDINE 20 MG in SYRINGE 3 ML IV SCH (09:18)
--- NOTE | 2021-11-01 10:46 | Discharge Summary ---
Date of Service November 01, 2021 Admission HPI Per Admitting Provider This is a 66-year-old female with PMHx of severe persistent asthma, on chronic prednisone, COPD, HTN, THERESA, MDD who presents to the hospital with generalized ill feeling and fever x4 days. She reports having body aches, generalized malaise, poor p.o. intake and difficulty with nausea. She denies any chest pain, heaviness or palpitations. She does have chronic severe asthma for which she takes prednisone daily and has inhalers and nebulizers if she needs them at home. She denies any worsening shortness of breath recently. Of note she has had diarrhea with even minimal amounts of food/liquids she has tried to consume the past 4 days. In her experience, multiple medications do not sit well with her stomach and therefore she is fearful of taking new medications. Within that category, she has tried doxycycline before and had severe gastrointestinal upset and is adamant that she will not take it again. Doxy was used when she tested positive for Lyme's however had a negative Western blot associated with that test several years ago. She admits to being an outdoors person and has multiple animals that are inside and outside pets. She cannot recall any tick bite that she is aware of nor obvious bullseye rash. Her is present with her at bedside and supports the history. Her platelet count today is 97 compared to being 230 in April 2021, WBC is 4.55, TBili elevated at 1.3, AST 153, ALT 141, alk phos 228. Troponin slightly elevated at 27.6 compared to a previous test in April where it was 7. Admission Exam Per Admitting Provider General: awake, alert, no apparent distress Head: Normocephalic, atraumatic ENT: PERRL, EOMI, no pharyngeal exudate, mucous membranes slightly dry Chest: Clear to auscultation, on room air, no adventitious breath sounds Cardiac: Regular rate and rhythm, no murmur, no JVD, normal peripheral pulses, good capillary refill Abdominal: Hyperactive BS x 4 quadrants, soft, nondistended, nontender to palpation, no rebound or guarding Extremities: Normal inspection, no peripheral edema or erythema, calfs nontender to palpation Psych: Normal mood and affect Neuro: AAO x 3, strength intact bilaterally and rated 5/5, no motor deficits, speech is clear, no peripheral sensory deficits Principal Diagnosis Suspected Tick Borne Illness, hyponatremia Discharge Exam Gen: WD/WN, NAD, sitting up in bed, A&Ox3 HEENT: Normocephalic, atraumatic, conjunctivae moist, sclerae anicteric, mucous membranes moist Lung: Clear to Auscultation bilaterally, no wheezes/rales/rhonchi Heart: Regular rate, regular rhythm, no murmurs, rubs, or gallops Abdomen: Soft, NT, ND +BS x 4 Extremities: no edema Skin: Warm, no rash Discharge Data Allergies Allergy/AdvReac Type Severity Reaction Status Date / Time Iodinated Contrast Media Allergy Severe SHORTNESS Verified 06/06/20 09:48 OF BREATH oxycodone Allergy Mild NAUSEA AND Verified 06/06/20 09:48 VOMITING,GOOFY Sulfa (Sulfonamide Allergy Mild DIDN'T Verified 06/06/20 09:48 Antibiotics) WORK-HIVES,SOB Antidepressants AdvReac Severe neuro Uncoded 06/06/20 09:48 changes Consultations 10/28/21 18:48 ED Decision to Admit Stat 10/29/21 07:46 Consult Infectious Diseases Routine Hospital Course (1) Thrombocytopenia: (2) Leukopenia: (3) Nausea & vomiting: (4) Elevated LFTs: (5) HTN (hypertension): (6) Anxiety: Plan Patient is a 66 yr female with H/O severe persistent asthma, GERD, depression with anxiety and hypertension who presented to ED on 10/28/2021 secondary to persistent fever, malaise, fatigue and profuse watery diarrhea x4 days. Presented with acute thrombocytopenia, transaminitis, pancytopenia, elevated troponin and positive Lyme IgM. Lyme IgG was negative on Western blot. Peripheral smear was negative for inclusion bodies and not concerning for hemolysis. Anaplasma DNA still pending. Hepatitis panel negative. LFTs and thrombocytopenia improving with doxycycline treatment, in favor of a suspected tickborne illness. Also had positive stool culture for EPEC. Diarrhea has resolved. UA negative for UTI, no abnormality on chest x-ray. Blood cultures negative to date. ID consulted, who recommended completing doxycycline course for total of 14 days. Repeat CBC within 1 week and given christiansen cytopenia, consider outpatient follow-up with hematology if not improving. Patient asymptomatic and hemodynamically stable at time of discharge. Total Time Total Time Spent Total Time Spent (In Minutes): 35 Discharge Plan Discharge Items Patient Disposition: Home - Self-Care Reason For Visit: fever chills achey Discharge Diagnosis: Suspected Tick Borne Illness, hyponatremia Activity: Resume your previous activity Non-emergency contact: Primary Care Provider Call non-emergency contact if: you have any medication questions, your symptoms worsen, your pain is not controlled and you have a fever Follow-up/Referrals: Melinda Phelps PA-C [Primary Care Provider] - (Date & Time 11/07/2021 3:00 PM Provider Melinda Phelps PA-C Department [facility] ) Diet: Heart Healthy Addtl Attending Provider Instructions: You were admitted for suspected tickborne illness and enteropathic E. coli infection of GI tract. Symptoms have resolved and blood work is improving with antibiotic treatment. Blood work is negative for Lyme disease. Blood cultures are negative. Peripheral smear not concerning for hemolysis. RECOMMENDATIONS FOR FOLLOW-UP: * Continue oral doxycycline for 14 days total course. Probiotic and Pepcid as needed while taking antibiotic. * Please have blood work done (CBC) within 1 week to assess platelets and WBC. If abnormal, recommend hematology consult as out-patient for further work-up. * Follow up with primary care provider as above. OTHER INSTRUCTIONS: Seek medical attention if you have: * temperature above 101 * chest pain or trouble breathing * abdominal pain, nausea, vomiting * diarrhea, dark stools or bloody stools * any unanswered questions or concerns Call 911 if symptoms are severe. Please take good care of yourself. Call if you have any questions or problems. You can reach a [facility] hospitalist on duty at [facility] 24 hours a day by calling [phone]. Pending Studies at Discharge: Yes Stand-Alone Forms: My [facility], Smoking Cessation Medications and DC Order Prescriptions: New doxycycline hyclate 100 mg Capsule 100 mg PO BID Qty: 23 0RF Rx Instructions: Continue doxycycline 100mg capsule twice daily until complete. Please take with food. famotidine [Pepcid] 20 mg tablet 20 mg PO BID Qty: 28 0RF Rx Instructions: Take twice daily as needed for upset stomach while taking antibiotic. Probiotic 10 billion cell capsule 10 mg PO DAILY Qty: 14 0RF Rx Instructions: Take once daily while taking antibiotic. Continued alprazolam 0.5 mg tablet 0.25 mg PO BID PRN (Reason: Anxiety) albuterol sulfate 90 mcg/actuation HFA aerosol inhaler 2 puff INHALATION .Q4H PRN (Reason: Shortness Of Breath) prednisone 5 mg tablet 2.5 mg PO DAILY@1600 acetaminophen [Tylenol Extra Strength] 500 mg Tablet 1,000 mg PO Q6 PRN (Reason: Pain) fluticasone propionate 50 mcg/actuation spray,suspension 1 spray INTRANASAL UD losartan 50 mg tablet 25 mg PO DAILY Discharge Orders: Discharge Order (Routine); Ordered 11/01/21 Ordered By: Ernestina Mcfadden/Other Patient Handouts: E. Coli Infection Admission Data Admit Date/Time: 10/28/21 19:04 Attending Provider: Nico Mckeon Admit Provider: Annita Paulino Primary Care Provider: Melinda Phelps Other Providers: Annita Paulino ; Jhonatan Mcneill ; Suzanne Montoya ; Eliel Butterfield I. ; Goran Blanco II ; Marlyn Nelson ; Brayan Hernandez ; Ernie Romero ; Mendy Feliciano ; Ernestina Butterfield Other Interventions: Discharge Summary Assessment (RN) Last Done: 11/01/21 10:50 Supervising Physician Co-Signing Physician Notes Patient is seen and examined on day of discharge. States feeling much better today. Diarrhea completely resolved. States feeling tired but otherwise no complaints. Blood work reviewed. Physical Exam: Vitals signs as noted above General Appearance:Moderately built and nourished, no apparent distress Head: normocephalic, Atraumatic Eyes: normal inspection, EOMI Neck: supple, Trachea midline Respiratory/Chest: Normal breath sounds, CTA, No accessory muscle use Cardiovascular: S1, S2, No murmur Abdomen/GI:Soft, Non tender, Bowel sounds present Extremities/Musculoskeletal:normal inspection, no edema Neurologic/Psych:AAOX3, grossly no focal neurological deficits Skin: normal color, warm Suspected Tick Borne Illness Likely Anaplasmosis Lyme's, Babesia less likely Enteropathogenic E. coli infection Presented with Acute thrombocytopenia, transaminitis, elevated troponin and positive Lyme IgM Peripheral smear was negative for inclusion bodies Pancytopenia --Hepatitis panel negative Anaplasma DNA pending Stool culture positive for EPEC Was initially on IV Rocephin, transitioned to Doxycycline UA Negative for UTI CXR: no acute abnormality Blood cultures: Negative to date ID consulted Peripheral smear: not concerning for hemolysis, lyme not typical for pancytopenia Recommend OP f/u labs in 3-4 weeks, if still not improving obtain HEME consult as OP LFTs, thrombocytopenia Improved Advised to continue doxycycline until serological test reports. Needs follow-up with PCP for further recommendations. I personally reviewed the record. Patient is interviewed and examined at bedside. Patient's care is coordinated with Ernestina Butterfield PA-C. Please refer to the documentation above for details of patient's presentation and for discussion of other issues.
--- NOTE | 2021-11-01 13:16 | Hospitalist Progress Note ---
Date of Service November 01, 2021 Assessment & Plan (1) Thrombocytopenia: (2) Leukopenia: (3) Nausea & vomiting: (4) Elevated LFTs: (5) HTN (hypertension): (6) Anxiety: Plan Patient is a 66 yr female with H/O severe persistent asthma, GERD, depression with anxiety and hypertension who presented to ED on 10/28/2021 secondary to persistent fever, malaise, fatigue and profuse watery diarrhea x4 days. Suspected Tick Borne Illness DD: Lyme's disease, Anaplasmosis, Babesia Enteropathogenic E. coli infection Presented with Acute thrombocytopenia, transaminitis, elevated troponin and positive Lyme IgM Peripheral smear was negative for inclusion bodies Pancytopenia --Hepatitis panel negative Anaplasma DNA pending Stool culture positive for EPEC Was initially on IV Rocephin, transitioned to Doxycycline UA Negative for UTI CXR: no acute abnormality Blood cultures: Negative to date ID consulted who recommended doxy and hemolytic anemia w/u Peripheral smear: not concerning for hemolysis, lyme not typical for pancytopenia, would recommend OP f/u labs in 3-4 weeks, if still not improving obtain HEME consult as OP LFTs, thrombocytopenia slowly improving Hypomagnesemia Replace as needed Hyponatremia Likely due to GI losses Sodium levels improved Monitor HTN Resume losartan Monitor Elevated troponin Chronic LBBB EKG w/o change, pt denies chest pain likely in setting of acute illness Echo: EF 50-55%, mild LVH, septal motion consistent with conduction ab normality, mild aortic regurg, trace TR, estimated PASP 37mmhg Anxiety continue prn xanax Severe persistent Asthma continue chronic prednisone prn inhalers no signs of exacerbation DVT Px: SCDS, TEDs Re: Thrombocytopenia Code Status Full Code Admission and Anticipated Discharge Date Admission Date: October 28, 2021 Physical Exam Physical Exam: Physical Exam: Vitals signs as noted above General Appearance:Moderately built and nourished, no apparent distress Head: normocephalic, Atraumatic Eyes: normal inspection, EOMI Neck: supple, Trachea midline Respiratory/Chest: Normal breath sounds, CTA, No accessory muscle use Cardiovascular: S1, S2, No murmur Abdomen/GI:Soft, Non tender, Bowel sounds present Extremities/Musculoskeletal:normal inspection, no edema Neurologic/Psych:AAOX3, grossly no focal neurological deficits Skin: normal color, warm Results & Data Results & Data (MN) Vital Signs (Past 12 Hours) Vital Signs Temp Pulse Resp BP Pulse Ox O2 Del Method 11/01/21 07:07 36.9 C 78 16 145/78 H 91 Room Air
== END 2021-11-01 12:09 | disposition home or self-care (01) | DRG 868 ==
LOC: ED 13:44 → SUATTDRO 19:04 → 3N 19:04

== ENCOUNTER 2024-02-12 13:32 | Inpatient (IN) ==
--- NOTE | 2024-02-12 13:49 | ED Triage Note ---
Date of Service February 12, 2024 Provider in Triage Author: Cliff Kirkpatrick History of Present Illness This patient was briefly evaluated while in triage. An abbreviated physical exam was performed. This patient is a 68-year-old Female who was referred to the emergency department for evaluation of heart failure and low oxygen level. The patient reports that she was just discharged from [facility] for heart failure after a 5-day admission. The patient is seen in the past by cardiology by Dr. Bello, but previous appointments have been canceled. The patient reports that she has an appointment scheduled with cardiology for May. Patient does have a history of asthma. Physical Exam CONSTITUTIONAL: Healthy and well nourished. Patient does not appear in any acute distress. RESPIRATORY: Clear to auscultation bilaterally with no wheezing, crackles, rhonchi or stridor. CARDIOVASCULAR: Regular rate and rhythm with no murmurs, rubs or gallops. GASTROINTESTINAL: Bowel sounds present in all quadrants. MUSCULOSKELETAL: Full range of motion of all joints without discomfort. No pretibial pitting edema. INTEGUMENTARY: No rash or other significant dermatologic conditions noted. HEMATOLOGIC: No ecchymosis or petechiae. PSYCHIATRIC: Positive affect. NEUROLOGIC: No focal neurologic deficits noted. Initial orders for labs and / or imaging were placed and patient was placed in the waiting area until a bed is available. Please see further documentation for the full ED course.
[2024-02-12 15:17] LABS: Hematocrit (blood only) 43.3 % (37.0-47.0); Hemoglobin 14.4 g/dl (12.0-16.0); Mean Corpuscular Hemoglobin 31.2 pg (25.0-34.0); Mean Corpuscular Hgb Conc 33.3 g/dL (32.0-36.0); Mean Corpuscular Volume 93.9 fL (80.0-100.0); Mean Platelet Volume 9.8 fL (9.4-12.4); Platelet Count 222 K/uL (130-400); RDW Coefficient of Variation 13.2 % (11.5-14.5); RDW Standard Deviation 45.3 fL (36.4-46.3); Red Blood Count 4.61 M/uL (4.20-5.40); White Blood Count 8.26 K/ul (4.8-10.8)
[2024-02-12 15:35] LABS: Alanine Aminotransferase 48 U/L (7-52); Albumin Globulin Ratio 1.2 (0.9-2); Albumin Level 4.1 gm/dl (3.4-5.0); Alkaline Phosphatase 57 U/L (34-104); Anion Gap 11 (3-11); Aspartate Aminotransferase 32 U/L (13-39); BUN Creatinine Ratio 23.5 (10-20); Bilirubin,Total 0.4 mg/dl (0.2-1.0); Blood Urea Nitrogen 23 mg/dl (6-23); Calcium 9.4 mg/dl (8.6-10.3); Carbon Dioxide 34 mmol/L (21-32); Chloride 94 mmol/L (98-107); Globulin 3.3 gm/dl (2.5-4.0); Glucose 209 mg/dl (70-99(Fasting)); Magnesium 2.5 mg/dl (1.7-2.4); Potassium 4.5 mmol/L (3.5-5.1); Sodium 139 mmol/L (136-145); Total Protein 7.4 gm/dl (6.0-8.3)
[2024-02-12 15:40] LABS: Troponin I High Sensitivity 13.2 pg/ml (0-14)
--- NOTE | 2024-02-12 15:46 | XRay Report ---
XR chest 2V PA/lateral CLINICAL HISTORY: SOB, hypoxic TECHNIQUE: 2 views of the chest were obtained. Comparison: Comparison is made to chest radiograph 09/18/2023 FINDINGS: No lines and tubes are seen. Cardiomegaly is noted. The aortic arch is calcified. Peribronchial thick ening is seen. Small left pleural effusion is seen. IMPRESSION: Small left pleural effusion. No consolidation is seen. Bronchial wall thickening may represent infect ious/inflammatory airways disease. ACT 112: Negative or not required by law. Electronically signed by: Isaac Parra M.D. 02/12/2024 3:45 PM
--- NOTE | 2024-02-12 15:48 | Electrocardiogram Report ---
Test Reason : Blood Pressure : */* mmHG Vent. Rate : 84 BPM Atrial Rate : 84 BPM P-R Int : 138 ms QRS Dur : 150 ms QT Int : 402 ms P-R-T Axes : 56 44 252 degrees QTcB Int : 475 ms Poor data quality, interpretation may be adversely affected Normal sinus rhythm Left bundle branch block Abnormal ECG When compared with ECG of 18-Sep-2023 15:07, No significant change was found Confirmed by Mele Barbour ([id number]) on 02/12/2024 3:48:08 PM Referred By: Confirmed By: Mele Barbour
[2024-02-12 15:52] LABS: INR 0.9 (0.9-1.1); Partial Thromboplastin Ratio 0.8; Partial Thromboplastin Time 22 Seconds (21-31); Prothrombin Time 10.3 Seconds (9.0-12.0)
[2024-02-12 16:01] LABS: Adenovirus PCR Not Detected (NotDetected); Bordetella parapertussis PCR Not Detected (NotDetected); Bordetella pertussis PCR Not Detected (NotDetected); Chlamydia pneumoniae PCR Not Detected (NotDetected); Coronavirus 229E PCR Not Detected (NotDetected); Coronavirus CoV-2 (COVID19)PCR Not Detected (NotDetected); Coronavirus HKU1 PCR Not Detected (NotDetected); Coronavirus NL63 PCR Not Detected (NotDetected); Coronavirus OC43PCR Not Detected (NotDetected); Human Metapneumovirus PCR Not Detected (NotDetected); Influenza A (H3) PCR DETECTED (NotDetected); Influenza B PCR Not Detected (NotDetected); Mycoplasma pneumoniae PCR Not Detected (NotDetected); Parainfluenza Virus 1 PCR Not Detected (NotDetected); Parainfluenza Virus 2 PCR Not Detected (NotDetected); Parainfluenza Virus 3 PCR Not Detected (NotDetected); Parainfluenza Virus 4 PCR Not Detected (NotDetected); Respiratory Syncytial VirusPCR Not Detected (NotDetected); Rhinovirus/Enterovirus PCR Not Detected (NotDetected)
[2024-02-12 16:18] LABS: Basophils # (auto) 0.02 K/uL (0.00-0.20); Basophils % (auto) 0.2 %; Immature Granulocytes # (auto) 0.17 K/uL (0.01-0.20); Immature Granulocytes % (auto) 2.1 %; Lymphocytes # (auto) 0.98 K/uL (1.20-3.40); Lymphocytes % (auto) 11.9 %; Monocytes # (auto) 0.14 K/uL (0.11-0.59); Monocytes % (auto) 1.7 %; Neutrophils # (auto) 6.95 K/uL (1.40-6.50); Neutrophils % (auto) 84.1 %; Polychromasia 1+
[2024-02-12] MEDS: LEVALBUTEROL 1.25 MG/3 ML NEB NEB STA ×2 (17:45→18:56)
--- NOTE | 2024-02-12 18:08 | Emergency Department Note ---
Impression & Plan LVH (left ventricular hypertrophy), Abnormal EKG, CHF (congestive heart failure) ED Provider Note NAME: NESSA LIM AGE: 68 SEX: F : 1955 ARRIVES VIA: Walk-In INFORMANT: [Patient][, ] ED PROVIDER(S): [Miguel Naik MD] CHIEF COMPLAINT: New CHF diagnosis, unclear follow-up MEDICAL DECISION MAKING: Patient presents due to concern for new diagnosis of CHF and pneumonia. IV was established and blood work was obtained. Patient with a normal white count H&H and platelet count. Kidney function is unremarkable bicarb is elevated. BSG at 2 9 but nonfasting and not DKA. Magnesium 2.5. BNP of 225. Troponin negative. BioFire is positive for flu A. Chest x-ray does show concern for small left pleural effusion no evidence of consolidation. Patient has some associated bronchial wall thickening which would be consistent with her influenza. EKG appears grossly unchanged for comparison. Discussion w/ other healthcare providers: [None] Prior /Outside records reviewed: Did review some of the patient's recent inpatient studies. The patient did have a CT of the chest without contrast which showed bilateral groundglass attenuation and mild airspace consolidation at the left lung base which could be atelectatic versus pneumonia. Scoliosis also noted. No compression fracture. TTE showed LVH possible LV dilation global hypokinesis and abnormal septal motion with an EF of 35 to 40% RV is normal size. Left atrium is dilated. Trivial mitral regurg but no obvious mitral valve prolapse. Differential diagnosis: Infection, dehydration, metabolic abnormality, hypo/hyperglycemia, electrolyte imbalance, anemia, UTI, pneumonia, thyroid dysfunction among others were considered. Diagnostics, as interpreted by me: ECG: Normal sinus rhythm, rate of 84, wide QRS left bundle branch block pattern. Elevations anteriorly to inversions inferiorly. Patient's EKG appears grossly unchanged from comparison from September 18, 2023. Cardiac monitoring: An order was placed for continuous cardiac monitoring. The monitor shows a rate of 85 with sinus rhythm. [Patient was placed on pulse oximetry] Medical decision rules: [none] Imaging studies: [I informally interpreted the patient's Chest x-ray appears grossly unchanged from comparison. Cardiomegaly noted. Scoliosis noted with formal report to follow.] [] HPI: Patient presents with the above. The patient reportedly had a recent admission and discharge at [facility]. The patient states that patient reportedly was admitted at that time and diagnosed with CHF. Patient states that she did have new medications to take. Patient reports that a lot of her family did have flu A but was negative at that time was diagnosed with a pneumonia. Patient also had a UTI during admission which was treated. Patient states that she did have a CAT scan completed along with an echocardiogram. She states that they were [facility] affiliated there was no dance professor there to evaluate her. Patient states that it was unclear as to what she should do and follow-up other than having a lot of new medications and was also discharged on home oxygen. Patient denies any active chest pains. The patient states that she does feel as though her exercise tolerance is not what it used to be and associated [place]. Prior to the time of her admission the patient states that it was not uncommon for her to run to the low 90s or high 80s on room air but is concerned as even on oxygen she feels like she continues to drop. The patient also does have a prior history of asthma. Patient states that she has had a cough that is nonproductive. Patient denies any significant leg swelling. Patient denies any vomiting or fevers no diarrhea. Patient reports that she does follow with Dr. Bello. PAST MEDICAL HISTORY: [See Below] PAST SURGICAL HISTORY: [See Below] SOCIAL HISTORY: [See Below] HOME MEDICATIONS: [See Below] ALLERGIES: [See Below] VITALS: [See Below] PHYSICAL EXAMINATION: GENERAL: NAD, fatigable but nontoxic in appearance. Nasal cannula in place. EYE EXAM: Normal conjunctiva. PERRL, no anisocoria and EOM's grossly intact w/o pain. OROPHARYNX: Moist mucus membranes, grossly normal dentition. NECK: Trachea midline, no stridor. [Supple, no nuchal rigidity, no adenopathy, non-tender. No signs of meningismus. FROM of the neck with good chin to chest and neck extension.] LUNGS: Bibasilar crackles and scant inspiratory wheezes in the upper lung terry. Normal chest wall mechanics. HEART: NSR, no MRG. ABDOMEN: Abdomen soft, non-tender, no masses, no rebound or guarding. BACK: No CVA TTP. SKIN: No rashes and no bruising. UPPER EXTREMITIES: Upper extremities are grossly normal. LOWER EXTREMITIES: Grossly normal, no edema. Trace pretibial edema without calf pain or erythema. NEURO EXAM: A&O x3, cranial nerves II-XII grossly intact, normal speech, moves all 4 extremities. Past Med/Surg History Problem List (Updated 02/12/24 @ 18:14 by Miguel Naik MD) CHF (congestive heart failure) (Acute) Elevated troponin (Acute) Nausea & vomiting (Acute) Leukopenia (Acute) Thrombocytopenia (Acute) Elevated LFTs (Acute) Encounter for pre-operative examination Myocardial infarct (Chronic) Anxiety (Acute) Anxiety (Acute) COPD (chronic obstructive pulmonary disease) (Chronic) Near syncope (Acute) Weakness (Acute) Abnormal EKG (Acute) Acute electrocardiogram changes (Acute) Per 03/29/20 cardio note- pt with lateral repolarization changes consistent with possible ischemia or LVH while admitted 02/2020- had subsequent ECHO and stress test without issues. Anxiety (Acute) HTN (hypertension) LVH (left ventricular hypertrophy) (Acute) F/U DR CHAVEZ Medical History Arthritis NECK-FULL ROM Depression GERD (gastroesophageal reflux disease) Temporomandibular joint disorder CRACKS NO LOCKING Insomnia SOB (shortness of breath) on exertion Asthma INHALER PRN MVP (mitral valve prolapse) PREMEDS WITH DENTAL Sinusitis ACUTE Surgical History History of open reduction and internal fixation (ORIF) procedure LEFT ARM History of tonsillectomy History of section X 2 Social History Smoking Status: Never smoker Second Hand Exposure: Yes (FATHER SMOKED); Do You Dip or Chew Tobacco: No; Hx Alcohol Use: No Hx Substance Use: No Preferred Language: Nigerien Communication Ability: Effective Chief Of Anesthesiology Required: No Beliefs That Will Affect Care: None marital status: Current Living Situation: Spouse and Family Current Living Situation Comment: lives in 1 story home with and 13yo granddaughter Feels Safe at Home: Yes Assistive Devices: None Allergies Allergies Allergy/AdvReac Type Severity Reaction Status Date / Time Iodinated Contrast Media Allergy Severe SHORTNESS Verified 09/18/23 18:15 OF BREATH oxycodone Allergy Mild NAUSEA AND Verified 09/18/23 18:15 VOMITING,GOOFY Sulfa (Sulfonamide Allergy Mild DIDN'T Verified 09/18/23 18:15 Antibiotics) WORK-HIVES,SOB Antidepressants AdvReac Severe neuro Uncoded 09/18/23 18:15 changes Home Meds Home Medications Medication Instructions Recorded Confirmed albuterol sulfate 90 mcg/actuation 2 puff inhalation Q4H PRN 03/03/20 09/18/23 aerosol inhaler Shortness Of Breath alprazolam 0.5 mg tablet 0.25 mg PO BID PRN Anxiety 03/03/20 09/18/23 prednisone 5 mg tablet 5 mg PO BID 03/03/20 09/18/23 acetaminophen 500 mg tablet 1,000 mg PO Q6 PRN Pain 05/10/20 09/18/23 (Tylenol Extra Strength) losartan 50 mg tablet 50 mg PO DAILY 10/28/21 09/18/23 Previous Rx's Medication Instructions Recorded famotidine 20 mg tablet (Pepcid) 20 mg PO BID #28 tabs 11/01/21 Results & Data (ED) Vital Signs Vital Signs - 24 hr 02/12/24 13:45 02/12/24 15:01 02/12/24 16:22 Temperature 36.8 C Temperature Source Temporal Artery Scan Pulse Rate 96 H Pulse Rate [Right Finger] 88 Pulse Rate from SpO2 Sensor Respiratory Rate 18 22 Respiratory Effort / Characteristics Non-Labored Spontaneous Non-Labored Respiratory Depth Normal Normal Blood Pressure 161/92 H Blood Pressure [Right Arm] 129/69 Blood Pressure Mean 115 Blood Pressure Mean [Right Arm] 89 Pulse Oximetry 92 94 Oxygen Delivery Method Nasal Cannula Nasal Cannula Nasal Cannula Oxygen Flow Rate 2 2 2 Sepsis Recent Fever Within 48 Hours No Sepsis New/Unexplained Change in Mental Status No Sepsis Action Taken by Nursing No Action Required 02/12/24 17:00 02/12/24 17:00 02/12/24 17:18 Temperature Temperature Source Pulse Rate 80 81 Pulse Rate [Right Finger] Pulse Rate from SpO2 Sensor 80 Respiratory Rate 20 29 H Respiratory Effort / Characteristics Respiratory Depth Blood Pressure Blood Pressure [Right Arm] 138/75 Blood Pressure Mean Blood Pressure Mean [Right Arm] 96 Pulse Oximetry 91 90 Oxygen Delivery Method Nasal Cannula Oxygen Flow Rate 2 Sepsis Recent Fever Within 48 Hours Sepsis New/Unexplained Change in Mental Status Sepsis Action Taken by Nursing 02/12/24 17:30 02/12/24 17:58 02/12/24 18:00 Temperature Temperature Source Pulse Rate 84 Pulse Rate [Right Finger] Pulse Rate from SpO2 Sensor Respiratory Rate Respiratory Effort / Characteristics Respiratory Depth Blood Pressure 138/75 126/65 Blood Pressure [Right Arm] Blood Pressure Mean 107 77 Blood Pressure Mean [Right Arm] Pulse Oximetry Oxygen Delivery Method Oxygen Flow Rate Sepsis Recent Fever Within 48 Hours Sepsis New/Unexplained Change in Mental Status Sepsis Action Taken by Nursing 02/12/24 18:00 02/12/24 18:25 02/12/24 18:27 Temperature Temperature Source Pulse Rate Pulse Rate [Right Finger] Pulse Rate from SpO2 Sensor Respiratory Rate Respiratory Effort / Characteristics Respiratory Depth Blood Pressure 126/65 Blood Pressure [Right Arm] Blood Pressure Mean 77 Blood Pressure Mean [Right Arm] Pulse Oximetry 88 L 91 Oxygen Delivery Method Nasal Cannula Nasal Cannula Oxygen Flow Rate 2 4 Sepsis Recent Fever Within 48 Hours Sepsis New/Unexplained Change in Mental Status Sepsis Action Taken by Nursing 02/12/24 18:30 02/12/24 18:30 02/12/24 18:33 Temperature Temperature Source Pulse Rate 81 Pulse Rate [Right Finger] Pulse Rate from SpO2 Sensor 80 Respiratory Rate 20 Respiratory Effort / Characteristics Respiratory Depth Blood Pressure 130/79 130/79 Blood Pressure [Right Arm] Blood Pressure Mean 109 109 Blood Pressure Mean [Right Arm] Pulse Oximetry 91 Oxygen Delivery Method Oxygen Flow Rate Sepsis Recent Fever Within 48 Hours Sepsis New/Unexplained Change in Mental Status Sepsis Action Taken by Group Home Medications Current Medication List: was personally reviewed by me Laboratory Data Attestation: I reviewed the patient's lab results. 02/12/24 15:00 02/12/24 15:00 Lab Results 02/12/24 Range/Units 15:00 WBC 8.26 (4.8-10.8) K/ul RBC 4.61 (4.20-5.40) M/uL Hgb 14.4 (12.0-16.0) g/dl Hct 43.3 (37.0-47.0) % MCV 93.9 (80.0-100.0) fL MCH 31.2 (25.0-34.0) pg MCHC 33.3 (32.0-36.0) g/dL RDW Std Deviation 45.3 (36.4-46.3) fL RDW Coeff of [place]bey 13.2 (11.5-14.5) % Plt Count 222 (130-400) K/uL MPV 9.8 (9.4-12.4) fL Immature Gran % (Auto) 2.1 % Neut % (Auto) 84.1 % Lymph % (Auto) 11.9 % [place] % (Auto) 1.7 % Eos % (Auto) 0.0 % Baso % (Auto) 0.2 % Neut # (Auto) 6.95 H (1.40-6.50) K/uL Lymph # (Auto) 0.98 L (1.20-3.40) K/uL [place] # (Auto) 0.14 (0.11-0.59) K/uL Eos # (Auto) 0.00 (0.00-0.50) K/uL Baso # (Auto) 0.02 (0.00-0.20) K/uL Immature Gran # (Auto) 0.17 (0.01-0.20) K/uL Polychromasia 1+ PT 10.3 (9.0-12.0) Seconds INR 0.9 (0.9-1.1) APTT 22 (21-31) Seconds PTT Ratio 0.8 Sodium 139 (136-145) mmol/L Potassium 4.5 (3.5-5.1) mmol/L Chloride 94 L (98-107) mmol/L Carbon Dioxide 34 H (21-32) mmol/L Anion Gap 11 (3-11) BUN 23 (6-23) mg/dl Creatinine 0.98 (0.6-1.2) mg/dl Est Cr Clr Drug Dosing Not Reportable eGFR 63.66 BUN/Creatinine Ratio 23.5 H (10-20) Glucose 209 H (70-99(Fasting)) mg/dl Calcium 9.4 (8.6-10.3) mg/dl Magnesium 2.5 H (1.7-2.4) mg/dl Total Bilirubin 0.4 (0.2-1.0) mg/dl AST 32 (13-39) U/L ALT 48 (7-52) U/L Alkaline Phosphatase 57 (34-104) U/L Troponin I High Sens 13.2 (0-14) pg/ml B-Natriuretic Peptide 225 H (0-100) pg/ml Total Protein 7.4 (6.0-8.3) gm/dl Albumin 4.1 (3.4-5.0) gm/dl Globulin 3.3 (2.5-4.0) gm/dl Albumin/Globulin Ratio 1.2 (0.9-2) Adenovirus (PCR) Not Detected (NotDetected) B. pertussis DNA (PCR) Not Detected (NotDetected) B.parapertussis DNA PCR Not Detected (NotDetected) C. pneumoniae DNA (PCR) Not Detected (NotDetected) Coronavirus OC43 (PCR) Not Detected (NotDetected) Coronavirus HKU1 (PCR) Not Detected (NotDetected) Coronavirus 229E (PCR) Not Detected (NotDetected) SARS-CoV-2 (PCR) Not Detected (NotDetected) Coronavirus NL63 (PCR) Not Detected (NotDetected) Human Metapneumovir PCR Not Detected (NotDetected) Influenza A (H3) PCR DETECTED A (NotDetected) Influenza Type B (PCR) Not Detected (NotDetected) M. pneumoniae (PCR) Not Detected (NotDetected) Parainfluenza 1 (PCR) Not Detected (NotDetected) Parainfluenza 2 (PCR) Not Detected (NotDetected) Parainfluenza 3 (PCR) Not Detected (NotDetected) Parainfluenza 4 (PCR) Not Detected (NotDetected) RSV (PCR) Not Detected (NotDetected) Entero/Rhino (PCR) Not Detected (NotDetected) Administered Medications Discontinued Medications Levalbuterol HCl (Levalbuterol 1.25 Mg/3 Ml Neb) 2.5 mg NEB NOW STA Stop: 02/12/24 17:40 Last Admin: 02/12/24 17:45 Dose: 2.5 mg Documented By: BS Imaging Data Radiologist's Impression: Chest X-Ray 02/12/24 13:51 XR chest 2V PA/lateral CLINICAL HISTORY: SOB, hypoxic TECHNIQUE: 2 views of the chest were obtained. Comparison: Comparison is made to chest radiograph 09/18/2023 FINDINGS: No lines and tubes are seen. Cardiomegaly is noted. The aortic arch is calcified. Peribronchial thickening is seen. Small left pleural effusion is seen. IMPRESSION: Small left pleural effusion. No consolidation is seen. Bronchial wall thickening may represent infectious/inflammatory airways disease. ACT 112: Negative or not required by law. Electronically signed by: Isaac Parra M.D. 02/12/2024 3:45 PM Discharge Plan Visit Data Chief Complaint: Cardiac Assessment Stated Complaint: CARDIAC ASSESSMENT ED Provider: Miguel Naik Discharge Problem: LVH (left ventricular hypertrophy), Abnormal EKG, CHF (congestive heart failure) Forms Stand Alone Forms: [facility] Prescriptions Prescriptions: No Action alprazolam 0.5 mg tablet 0.25 mg PO BID PRN (Reason: Anxiety) albuterol sulfate 90 mcg/actuation HFA aerosol inhaler 2 puff INHALATION Q4H PRN (Reason: Shortness Of Breath) prednisone 5 mg tablet 5 mg PO BID acetaminophen [Tylenol Extra Strength] 500 mg Tablet 1,000 mg PO Q6 PRN (Reason: Pain) losartan 50 mg tablet 50 mg PO DAILY famotidine [Pepcid] 20 mg tablet 20 mg PO BID Qty: 28 0RF Rx Instructions: Take twice daily as needed for upset stomach while taking antibiotic. Referrals Referrals: Melinda Phelps PA-C [Primary Care Provider] -
[2024-02-12] MEDS: FUROSEMIDE 40 MG/4 ML VIAL IV ONE (18:55)
[2024-02-12] MEDS: OSELTAMIVIR PHOSPHATE 75 MG CAP PO STA (18:56)
[2024-02-12] MEDS: methylPREDNISolone 125 MG/2 ML VIAL IV STA (18:56)
--- NOTE | 2024-02-12 19:09 | History & Physical Report ---
Date of Service February 12, 2024 Assessment & Plan (1) Asthma exacerbation: (2) Acute hypoxic respiratory failure: (3) Influenza A: Plan: Patient is 68-year-old female with PMH HTN, asthma, on chronic prednisone, LBBB, anxiety depression, GERD, chronic HFrEF with EF: 35-39% on 2022 echo, presented to ER with c/o SOB. Admitted [facility] 02/07/24 - 02/12/24 for hypoxia, asthma exacerbation and CHF and treated for possible PNA, UTI with Rocephin, Zithromax, nebs, prednisone, IV lasix and had negative respiratory panel there on 02/07/24. Patient discharged from [facility] today 02/12/24 and presented to [facility] with c/o SOB. Today here at [facility] ER on 4L via NC with sat 91%, afebrile, other vitals stable [employer] respiratory panel +Influenza A No leukocytosis. BNP: 225. Negative troponin. No acute EKG changes CXR:no consolidation Likely multifactorial hypoxic respiratory failure secondary to influenza A, asthma exacerbation, acute CHF exacerbation In ER given albuterol nebs, Solumedrol 125mg IV, Lasix 20mg IV, Tamiflu 75mg po Patient symptom onset flu like symptoms 5-6 days ago so will hold on further Tamiflu Continue supplemental oxygen, wean as able Scheduled DuoNebs Prednisone 40 mg daily with plan to eventually taper to chronic home 10mg daily Pt not on daily inhaler. Start daily fluticasone and Anoro Ellipta inhalers Will likely require outpatient PFTs CBC, BMP in am (4) Acute on chronic HFrEF (heart failure with reduced ejection fraction): Plan: 10/08/22 echo: EF: 35-39%, grade 1 diastolic dysfunction 02/08/2024 echo report: Abnormal septal motion, global hypokinesis, EF: 35-40% Lasix 40 mg IV daily Monitor I's & O's, daily weight, low sodium diet Patient previously prescribed metoprolol succinate however never took. Will start metoprolol succinate 25 mg daily Start spironolactone 12.5 mg daily Start Jardiance 10 mg daily Cardiology consult (5) Hyperglycemia: Plan: Random glucose: 209 On chronic prednisone and recently receiving higher doses secondary to asthma flare A1c in am Novolog sliding scale per protocol (6) HTN (hypertension): Plan: Continue losartan. Pt prescribed 100mg daily but states she takes 1/2 tab making it 50mg daily (7) Anxiety: Plan: On chronic alprazolam prn Reports intolerance to multiple anxiety medications in past DVT Prophylaxis SCDs as pt denies chemical VTE prophylaxis at this time Admit telemetry Full Code as per discussion with pt Follows with Melinda Phelps PA-C for routine care Pt was seen and care coordinated with Dr Torres. See addendum I spent a total of 68 minutes reviewing notes, outpatient records, labs, medication, coordinating, documenting and providing care for this patient excluding time spent in the performance of separately billed services. History of Present Illness Chief Complaint: SOB Primary Care Provider: Melinda Phelps PA-C Patient is 68-year-old female with PMH HTN, asthma, on chronic prednisone, LBBB, anxiety depression, GERD, chronic HFrEF with EF: 35-39% on 2022 echo, presented to ER with c/o SOB. History obtained from patient and inpatient and outpatient chart review. Patient states 5-6 days ago had SOB, chest tightness, congestion. Her family members had influenza A. Reports SOB and wheezing. Denies extremity edema. Has albuterol to use as needed and typically doesn't require however she was using four times daily without relief. She had contact with influenza A positive family members. Patient states she thought she may have a flu also and presented to [facility] ER. Admitted at [facility] 02/07/24 - 02/12/24 for hypoxia, pneumonia, COPD exacerbation and CHF. Review of [facility] reports: 02/07/2024 CT chest: 1. Mild bilateral groundglass attenuation favoring alveolitis 2. Mild airspace consolidation at left lung base representing atelectasis or pneumonia in the proper clinical setting. 3. Moderate enlargement of the heart. 4. Scoliosis with kyphosis and osseous demineralization. No high-grade compression fracture of the thoracic spine. 02/07/2024 CXR: 1. Stable left basilar linear densities. 2. Scoliosis and cardiomegaly, unchanged 02/07/2024 urine culture > 100,000 and E. coli, pansensitive 02/07/2024 WBC: 7.7, Hgb: 12.6, proBNP: 4490, troponin I at bedtime: 12.6, 23, 22.2, respiratory panel: Negative 02/08/2024 echo report: Abnormal septal motion, global hypokinesis, EF: 35-40% Patient being treated with DuoNeb, arformoterol, azithromycin 500 mg IV daily, Rocephin IV daily, Nebulized budesonide, losartan 50 mg daily, metoprolol succinate 50 mg daily, Singulair 10 mg daily, prednisone 50 mg daily, aspirin 81 mg daily. IV lasix ordered, unclear from paperwork how much patient was receiving. Also given as needed Mucomyst, Pyridium. Patient states she felt the breathing treatments did help her while there and feels her breathing improved some but not back to her baseline. States discharged from [facility] today on oxygen and reports that she was urged by nurses to come to [facility] ER if she didn't feel comfortable. She presented to [facility] ER today. States still with SOB and some wheezing. She had breathing treatment here in ER and reports feeling better. She states feels less achy but still feels tired. C/O nausea since being on antibiotics and other medications but denies vomiting or diarrhea. Denies fever/chills past couple of days, diaphoresis, HODGES, dizziness, syncope, CP, orthopnea, palpitations, hemoptysis, abdominal pain, paresthesias, extremity edema, rashes, current urinary symptoms. Per outpatient chart review, follows with Dr Chavez, Cardiology and was started metoprolol succinate 25mg daily in 06/2023 and recommended cardiac MRI, however patient did not take metoprolol secondary to her concern of asthma and didn't have the MRI completed secondary to insurance issues. 10/08/22 echo: EF: 35-39%, grade 1 diastolic dysfunction Allergies Allergy/AdvReac Type Severity Reaction Status Date / Time Iodinated Contrast Media Allergy Severe SHORTNESS Verified 09/18/23 18:15 OF BREATH oxycodone Allergy Mild NAUSEA AND Verified 09/18/23 18:15 VOMITING,GOOFY Sulfa (Sulfonamide Allergy Mild DIDN'T Verified 09/18/23 18:15 Antibiotics) WORK-HIVES,SOB Antidepressants AdvReac Severe neuro Uncoded 09/18/23 18:15 changes Home Medications Medication Instructions Recorded Confirmed Type albuterol sulfate 90 mcg/actuation 2 puff inhalation Q4H PRN 03/03/20 02/12/24 History aerosol inhaler Shortness Of Breath alprazolam 0.5 mg tablet 0.25 mg PO BID PRN Anxiety 03/03/20 02/12/24 History prednisone 5 mg tablet 10 mg PO DAILY 03/03/20 02/12/24 History acetaminophen 500 mg tablet 1,000 mg PO Q6 PRN Pain 05/10/20 02/12/24 History (Tylenol Extra Strength) aspirin 81 mg tablet,delayed 81 mg PO DAILY 02/12/24 02/12/24 History release ergocalciferol (vitamin D2) 1,250 120 mcg PO WK 02/12/24 02/12/24 History mcg (50,000 unit) capsule (Vitamin D2) fluticasone 250 mcg-salmeterol 50 2 inh inhalation DAILY PRN 02/12/24 02/12/24 History mcg/dose blistr powdr for Shortness Of Breath inhalation furosemide 40 mg tablet 40 mg PO QAM 02/12/24 02/12/24 History losartan 100 mg tablet 50 mg PO PM 02/12/24 02/12/24 History metoprolol succinate 50 mg 50 mg PO DAILY 02/12/24 02/12/24 History tablet,extended release 24 hr montelukast 10 mg tablet 10 mg PO DAILY 02/12/24 02/12/24 History Past Med/Surg History Problem List (Updated 02/12/24 @ 20:29 by Clementina Olmstead PA-C) Acute hypoxic respiratory failure Acute on chronic HFrEF (heart failure with reduced ejection fraction) Hyperglycemia Asthma exacerbation Influenza A COPD exacerbation Chronic HFrEF (heart failure with reduced ejection fraction) CHF (congestive heart failure) (Acute) Elevated troponin (Acute) Nausea & vomiting (Acute) Leukopenia (Acute) Thrombocytopenia (Acute) Elevated LFTs (Acute) Encounter for pre-operative examination Myocardial infarct (Chronic) Anxiety (Acute) Anxiety (Acute) COPD (chronic obstructive pulmonary disease) (Chronic) Near syncope (Acute) Weakness (Acute) Abnormal EKG (Acute) Acute electrocardiogram changes (Acute) Per 03/29/20 cardio note- pt with lateral repolarization changes consistent with possible ischemia or LVH while admitted 02/2020- had subsequent ECHO and stress test without issues. Anxiety (Acute) HTN (hypertension) LVH (left ventricular hypertrophy) (Acute) F/U DR CHAVEZ Medical History Arthritis NECK-FULL ROM Depression GERD (gastroesophageal reflux disease) Temporomandibular joint disorder CRACKS NO LOCKING Insomnia SOB (shortness of breath) on exertion Asthma INHALER PRN MVP (mitral valve prolapse) PREMEDS WITH DENTAL Sinusitis ACUTE Surgical History History of open reduction and internal fixation (ORIF) procedure LEFT ARM History of tonsillectomy History of section X 2 Social History Smoking Status: Never smoker Second Hand Exposure: Yes (FATHER SMOKED); Do You Dip or Chew Tobacco: No; Hx Alcohol Use: No Hx Substance Use: No Preferred Language: Kiswahili Communication Ability: Effective Dag Coater Required: No Beliefs That Will Affect Care: None marital status: Current Living Situation: Spouse and Family Current Living Situation Comment: lives in 1 story home with and 13yo granddaughter Feels Safe at Home: Yes Assistive Devices: None Review of Systems Review of Systems: All systems reviewed & are unremarkable except as noted in HPI & below Physical Exam Physical Exam: PE per Dr Torres Results & Data Results & Data Vital Signs (Past 12 Hours) Vital Signs Temp Pulse Pulse Resp BP BP Pulse Ox 02/12/24 18:33 81 20 91 02/12/24 18:30 130/79 02/12/24 18:30 130/79 02/12/24 18:27 91 02/12/24 18:25 88 L 02/12/24 18:00 126/65 02/12/24 18:00 126/65 02/12/24 17:58 84 02/12/24 17:30 138/75 02/12/24 17:18 81 29 H 90 02/12/24 17:00 138/75 02/12/24 17:00 80 20 91 02/12/24 16:22 88 22 129/69 94 02/12/24 15:01 02/12/24 13:45 36.8 C 96 H 18 161/92 H 92 O2 Del Method O2 Flow Rate 02/12/24 18:33 02/12/24 18:30 02/12/24 18:30 02/12/24 18:27 Nasal Cannula 4 02/12/24 18:25 Nasal Cannula 2 02/12/24 18:00 02/12/24 18:00 02/12/24 17:58 02/12/24 17:30 02/12/24 17:18 02/12/24 17:00 02/12/24 17:00 Nasal Cannula 2 02/12/24 16:22 Nasal Cannula 2 02/12/24 15:01 Nasal Cannula 2 02/12/24 13:45 Nasal Cannula 2 Laboratory Results Short CBC 02/12/24 Range/Units 15:00 WBC 8.26 (4.8-10.8) K/ul Hgb 14.4 (12.0-16.0) g/dl Hct 43.3 (37.0-47.0) % Plt Count 222 (130-400) K/uL BMP 02/12/24 15:00 Sodium 139 Potassium 4.5 Chloride 94 L Carbon Dioxide 34 H BUN 23 Creatinine 0.98 Glucose 209 H Calcium 9.4 Liver Function 02/12/24 Range/Units 15:00 Total Bilirubin 0.4 (0.2-1.0) mg/dl AST 32 (13-39) U/L ALT 48 (7-52) U/L Alkaline Phosphatase 57 (34-104) U/L Albumin 4.1 (3.4-5.0) gm/dl Urine 02/12/24 Range/Units Unknown Urine Color Yellow Urine Appearance Clear (Clear) Urine pH 6.0 (4.5-7.5) Ur Specific [place] 1.012 (1.000-1.030) Urine Protein Negative (Negative) Urine Glucose (UA) Negative (Negative) Diagnostic Findings Chest X-Ray 02/12/24 13:51 XR chest 2V PA/lateral CLINICAL HISTORY: SOB, hypoxic TECHNIQUE: 2 views of the chest were obtained. Comparison: Comparison is made to chest radiograph 09/18/2023 FINDINGS: No lines and tubes are seen. Cardiomegaly is noted. The aortic arch is calcified. Peribronchial thickening is seen. Small left pleural effusion is seen. IMPRESSION: Small left pleural effusion. No consolidation is seen. Bronchial wall thickening may represent infectious/inflammatory airways disease. ACT 112: Negative or not required by law. Electronically signed by: Isaac Parra M.D. 02/12/2024 3:45 PM ECG Additional Comments: sinus rhythm, rate 84. LBBB per my interpretation Supervising Physician Co-Signing Physician Notes I have seen and discussed the case with the collaborating advanced practitioner. I agree with the above H&P. I have reviewed and confirmed the patients medical history, the findings on physical examination, and the patients diagnosis and treatment plan with Ishan RUSH and agree with the information documented. In short, Ms Paris is a 68 yo woman with hx of HTN, LBBB, and HFrEF 2022 (EF 30- 35%) presenting with continued hypoxia after admission from [facility] and advised to come to [facility]. Patient with unclear history--presented to on 02/06 and treated for UTI/pneumonia and heart failure exacerbation. She states she received lasix and doesn't recall urinating any more than usual.She was discharged on losartan, metoprolol, and oral furosemide 40mg Patient promptly presented to [facility] after discharge. records reviewed. ECHO with stable EF of 30-35% reportedly Patient reports wheezing. Denies orthopnea, endorses [place] GENERAL APPEARANCE: AxOx4, no distress HEENT: NC, AT. MMM. EOMI, clear conjunctiva, oropharynx clear. NECK: Supple without lymphadenopathy. No stiffness or restricted ROM. HEART: Normal rate and regular rhythm, normal S1/S1, no m/r/g LUNGS: CTAB, moving air well. few left sided expiratory wheezing ABDOMEN: Soft, nontender, nondistended with good bowel sounds heard. BACK: No CVAT, no obvious deformity. EXTREMITIES: Without cyanosis, clubbing or edema. NEUROLOGICAL: Grossly nonfocal. Alert and oriented, moving all 4 extremities. CN not formally tested but appear grossly intact. Skin: Warm and dry without any rash. : #Acute hypoxic resp failure,likely multifactorial #Influenza A virus #Asthma exacerbation #Pleural effusion s/p IV lasix in ED, treated with abx at OSH no concern for superimposed infection at this time will start pred 40mg daily and taper down to home dosing LAMA/LABA/ICS in am sunni princess hold tamiflu as outside of timeframe for effective treatment Wean o2 as able, goal >88% #Acute heart failure with reduced EF (30-35%) #LBBB #HTN only on losartan 50mg at home, declined initial metoprolol, however started at -start 25mg metoprolol, 10mg jardiance, 12.5mg spironolatone for GDMT continue losartan--consider entresto if covered by insurance IV lasix in am, reassess Cards consult replace lee prn Tele rest of plan as above I spent a total of 20 minutes coordinating, documenting, and providing care for this patient excluding time spent in the performance of separately billed services. All of the aforementioned completed outside of collaborating with the assigned advanced practitioner for a full treatment plan. I have reviewed the advanced practitioner's documentation, and I agree with, and take responsibility for the plan of care
[2024-02-12 20:06] LABS: Appearance Urine Clear (Clear); Bilirubin Urine Negative (Negative); Blood Urine Negative (Negative); Color Urine Yellow; Glucose Urine UA Negative (Negative); Ketones Urine Negative (Negative); Leukocyte Esterase Urine Negative (Negative); Nitrite Urine Negative (Negative); Protein Urine Negative (Negative); Specific Gravity Urine 1.012 (1.000-1.030); Urobilinogen Urine Negative (Negative)
[2024-02-12] MEDS ORDERED: GLUCOSE 10 TAB/TUBE PO PRN (21:48)
[2024-02-12] MEDS ORDERED: CARBOHYDRATES FOR HYPOGLYCEMIA PO PRN (21:48)
[2024-02-12] MEDS ORDERED: GLUCAGON FOR INJ 1 MG VIAL SQ PRN (21:48)
[2024-02-12] MEDS ORDERED: DEXTROSE 50% 50 ML SYRINGE IV PRN (21:48)
[2024-02-12] MEDS ORDERED: GLUCOSE 40% GEL 15 GM TUBE PO PRN (21:48)
[2024-02-12] MEDS ORDERED: POLYETHYLENE (MIRALAX) 17 GM PACK PO PRN (21:48)
[2024-02-12] MEDS ORDERED: ONDANSETRON INJ 2 MG/ML 2 ML VIAL IV PRN (21:48)
[2024-02-12] MEDS ORDERED: ACETAMINOPHEN 325 MG TAB PO PRN (21:48)
[2024-02-12] MEDS: INSULIN ASPART PER UNIT CHARGE SC SCH (22:54)
[2024-02-13] MEDS: LOSARTAN POTASSIUM 50 MG TAB PO SCH (00:09)
[2024-02-13] MEDS: ALBUT/IPRATROP 3MG/0.5MG NEB 3 ML VIAL NEB SCH (00:13)
[2024-02-13 04:04] LABS: Hematocrit (blood only) 40.5 % (37.0-47.0); Hemoglobin 13.3 g/dl (12.0-16.0); Mean Corpuscular Hemoglobin 30.6 pg (25.0-34.0); Mean Corpuscular Hgb Conc 32.8 g/dL (32.0-36.0); Mean Corpuscular Volume 93.3 fL (80.0-100.0); Mean Platelet Volume 9.7 fL (9.4-12.4); Platelet Count 217 K/uL (130-400); RDW Coefficient of Variation 12.8 % (11.5-14.5); RDW Standard Deviation 43.9 fL (36.4-46.3); Red Blood Count 4.34 M/uL (4.20-5.40); White Blood Count 10.03 K/ul (4.8-10.8)
[2024-02-13] MEDS: ALPRAZolam 0.25 MG TABLET PO PRN (04:15)
[2024-02-13 04:19] LABS: BUN Creatinine Ratio 34.9 (10-20); Calcium 8.9 mg/dl (8.6-10.3); Creatinine Clr Calc Pharmacy 59.8 ml/min; Magnesium 2.5 mg/dl (1.7-2.4); Potassium 4.2 mmol/L (3.5-5.1)
[2024-02-13 07:09] LABS: Estimated Average Glucose 134 mg/dl; Hemoglobin A1C 6.3 % (4.5-5.6)
[2024-02-13] MEDS: UMECLIDINIUM/VILANTEROL 62.5/25MCG 7 PUFFS/INHALER INH SCH (08:55)
[2024-02-13] MEDS: predniSONE 20 MG TAB PO SCH (08:55)
[2024-02-13] MEDS: SPIRONOLACTONE 12.5 MG TAB PO SCH (08:56)
[2024-02-13] MEDS: METOPROLOL SUCC 25MG EXT REL TAB PO SCH (08:57)
[2024-02-13] MEDS ORDERED: methylPREDNISolone 10 mg/mL (For Ped Dose < 7mg) IV SCH (09:00)
[2024-02-13] MEDS ORDERED: FUROSEMIDE 40 MG/4 ML VIAL IV SCH (09:00)
--- NOTE | 2024-02-13 09:03 | Hospitalist Progress Note ---
Date of Service February 13, 2024 Assessment & Plan (1) Asthma exacerbation: Plan: This is severe persistent asthma likely as a result of underlying influenza A infection, continue with Tamiflu, continue with nebulizer treatment scheduled and as needed, I would prefer patient to be treated with Solu-Medrol 60 mg IV twice daily for now, monitor response to treatment and hopefully over the next 24 hours we should be able to wean her off oxygen. (2) Acute hypoxic respiratory failure: Plan: She does not take oxygen at home, treat asthma exacerbation and treat underlying influenza A and monitor response to treatment and try to wean her off. (3) Influenza A: Plan: Continue with Tamiflu 75 mg twice daily for 5 days. (4) HTN (hypertension): Plan: Blood pressure stable, continue with Toprol XL 25 mg daily, losartan 50 mg daily. (5) Anxiety: (6) Chronic systolic CHF (congestive heart failure): Plan: I reviewed the chest x-ray myself, she does not have any element of volume overload, no pleural effusion of considerable size, no indication for IV diuresis, I will restart her home dose of Lasix 40 mg daily, continue with empagliflozin Toprol-XL, losartan and Aldactone. She must have had another echocardiogram somewhere although the last one we had in our system showed ejection fraction 50 to 55% which is from 2021. Plan Patient will be monitored, on Tamiflu, Solu-Medrol, try to wean her off oxygen over the next 24 hours, if the wheezing resolves by tomorrow she should be able to be discharged. Admission and Anticipated Discharge Date Admission Date: February 12, 2024 Subjective Patient is a 68-year-old female with history of hypertension, chronic asthma, on prednisone, anxiety/depression/chronic systolic CHF with ejection fraction of 35 to 40% who was admitted with wheezing and shortness of breath, she was exposed to influenza infection from family members recently around [place] time. Patient was found to be having acute hypoxemic respiratory failure, placed on oxygen. Patient was seen and examined, she is overall better than when she came in, she still has some ongoing wheezing toward the bases of both lungs, saturating about 91 to 93% on oxygen. Physical Exam Physical Exam: VITALS: Reviewed. WEIGHT/BMI reviewed. GEN: Healthy appearing, well-developed, NAD. CV: RRR, no m/r/g. LUNGS: Minor crackles at bases but the majority of finding was faint expiratory wheeze toward bases ABD: Soft, NT/ND, NBS, no masses or organomegaly. Results & Data Results & Data Vital Signs (Past 12 Hours) Vital Signs Pulse Pulse Resp BP BP Pulse Ox Pulse Ox 02/13/24 07:45 83 02/13/24 07:43 82 20 92 02/13/24 05:30 78 25 H 137/78 93 02/13/24 05:00 79 26 H 124/81 94 02/13/24 04:30 79 25 H 145/76 H 94 02/13/24 04:00 79 24 132/63 94 02/13/24 03:30 86 26 H 138/74 97 02/13/24 03:00 85 28 H 132/70 94 02/13/24 02:30 91 H 23 108/59 L 94 02/13/24 01:00 95 H 25 H 129/71 94 02/13/24 00:30 80 25 H 140/71 98 02/13/24 00:27 02/13/24 00:27 91 H 20 101/56 L 90 02/13/24 00:00 75 25 H 101/56 L 98 02/12/24 23:30 82 26 H 136/67 93 02/12/24 23:06 88 18 92 02/12/24 23:00 127/89 02/12/24 22:33 83 23 140/75 93 02/12/24 22:21 80 16 94 02/12/24 22:06 86 20 141/78 H 94 02/12/24 21:48 92 02/12/24 21:45 78 19 92 02/12/24 21:30 82 22 135/80 92 02/12/24 21:09 80 02/12/24 21:00 85 19 119/77 92 O2 Del Method O2 Del Method O2 Flow Rate O2 Flow Rate 02/13/24 07:45 02/13/24 07:43 Nasal Cannula 1 02/13/24 05:30 Nasal Cannula 3 02/13/24 05:00 Nasal Cannula 3 02/13/24 04:30 Nasal Cannula 3 02/13/24 04:00 Nasal Cannula 3 02/13/24 03:30 Nasal Cannula 3 02/13/24 03:00 Nasal Cannula 3 02/13/24 02:30 02/13/24 01:00 02/13/24 00:30 02/13/24 00:27 Nasal Cannula 4 02/13/24 00:27 Nasal Cannula 4 02/13/24 00:00 02/12/24 23:30 02/12/24 23:06 Nasal Cannula 4 02/12/24 23:00 02/12/24 22:33 02/12/24 22:21 02/12/24 22:06 02/12/24 21:48 Nasal Cannula 4 02/12/24 21:45 02/12/24 21:30 02/12/24 21:09 02/12/24 21:00 Laboratory Results Laboratory Results - last 24 hr 02/12/24 02/12/24 02/13/24 15:00 Unknown 03:35 WBC 8.26 10.03 RBC 4.61 4.34 Hgb 14.4 13.3 Hct 43.3 40.5 MCV 93.9 93.3 MCH 31.2 30.6 MCHC 33.3 32.8 RDW Std Deviation 45.3 43.9 RDW Coeff of Obey 13.2 12.8 Plt Count 222 217 MPV 9.8 9.7 Immature Gran % (Auto) 2.1 Neut % (Auto) 84.1 Lymph % (Auto) 11.9 Rhea % (Auto) 1.7 Eos % (Auto) 0.0 Baso % (Auto) 0.2 Neut # (Auto) 6.95 H Lymph # (Auto) 0.98 L Rhea # (Auto) 0.14 Eos # (Auto) 0.00 Baso # (Auto) 0.02 Immature Gran # (Auto) 0.17 Polychromasia 1+ PT 10.3 INR 0.9 APTT 22 PTT Ratio 0.8 Sodium 139 139 Potassium 4.5 4.2 Chloride 94 L 95 L Carbon Dioxide 34 H 34 H Anion Gap 11 10 BUN 23 29 H Creatinine 0.98 0.83 Est Cr Clr Drug Dosing Not Reportable 59.8 eGFR 63.66 77.70 BUN/Creatinine Ratio 23.5 H 34.9 H Glucose 209 H 244 H Estimat Average Glucose 134 Hemoglobin A1c 6.3 H Calcium 9.4 8.9 Magnesium 2.5 H 2.5 H Total Bilirubin 0.4 AST 32 ALT 48 Alkaline Phosphatase 57 Troponin I High Sens 13.2 B-Natriuretic Peptide 225 H Total Protein 7.4 Albumin 4.1 Globulin 3.3 Albumin/Globulin Ratio 1.2 Urine Color Yellow Urine Appearance Clear Urine pH 6.0 Ur Specific [place] 1.012 Urine Protein Negative Urine Glucose (UA) Negative Urine Ketones Negative Urine Blood Negative Urine Nitrite Negative Urine Bilirubin Negative Urine Urobilinogen Negative Ur Leukocyte Esterase Negative Adenovirus (PCR) Not Detected B. pertussis DNA (PCR) Not Detected B.parapertussis DNA PCR Not Detected C. pneumoniae DNA (PCR) Not Detected Coronavirus OC43 (PCR) Not Detected Coronavirus HKU1 (PCR) Not Detected Coronavirus 229E (PCR) Not Detected SARS-CoV-2 (PCR) Not Detected Coronavirus NL63 (PCR) Not Detected Human Metapneumovir PCR Not Detected Influenza A (H3) PCR DETECTED A Influenza Type B (PCR) Not Detected M. pneumoniae (PCR) Not Detected Parainfluenza 1 (PCR) Not Detected Parainfluenza 2 (PCR) Not Detected Parainfluenza 3 (PCR) Not Detected Parainfluenza 4 (PCR) Not Detected RSV (PCR) Not Detected Entero/Rhino (PCR) Not Detected Diagnostic Findings Chest X-Ray 02/12/24 13:51 XR chest 2V PA/lateral CLINICAL HISTORY: SOB, hypoxic TECHNIQUE: 2 views of the chest were obtained. Comparison: Comparison is made to chest radiograph 09/18/2023 FINDINGS: No lines and tubes are seen. Cardiomegaly is noted. The aortic arch is calcified. Peribronchial thickening is seen. Small left pleural effusion is seen. IMPRESSION: Small left pleural effusion. No consolidation is seen. Bronchial wall thickening may represent infectious/inflammatory airways disease. ACT 112: Negative or not required by law. Electronically signed by: Isaac Parra M.D. 02/12/2024 3:45 PM Medications Administered Current Inpatient Medications Acetaminophen (Acetaminophen 325 Mg Tab) 650 mg PO Q4H PRN PRN Reason: Pain or Fever Stop: 03/13/24 21:47 Albuterol (Albut/Ipratrop 3mg/0.5mg Neb 3 Ml Vial) 3 ml NEB Q6R [facility]; Protocol Stop: 03/14/24 00:59 Last Admin: 02/13/24 07:42 Dose: 3 ml Alprazolam (Alprazolam 0.25 Mg Tablet) 0.25 mg PO BID PRN PRN Reason: Anxiety Stop: 03/13/24 21:47 Last Admin: 02/13/24 04:15 Dose: 0.25 mg Dextrose (Dextrose 50% 50 Ml Syringe) 25 - 50 ml IV UD PRN; Protocol PRN Reason: Hypoglycemia Protocol Stop: 03/13/24 21:47 Empagliflozin (Empagliflozin 10 Mg Tab) 10 mg PO DAILY ANN Stop: 03/14/24 08:59 Fluticasone Furoate (Fluticasone Furoate 100mcg 14 Puffs/Inhaler) 1 puffs INH QAM ANN Stop: 03/14/24 08:59 Furosemide (Furosemide 40 Mg/4 Ml Vial) 40 mg IV DAILY ANN Stop: 03/14/24 08:59 Glucagon (Glucagon For Inj 1 Mg Vial) 1 mg SQ UD PRN; Protocol PRN Reason: Hypoglycemia Protocol Stop: 03/13/24 21:47 Glucose (Glucose 40% Gel 15 Gm Tube) 15 - 30 gm PO UD PRN; Protocol PRN Reason: Hypoglycemia Protocol Stop: 03/13/24 21:47 Glucose (Glucose 10 Tab/Tube) 4 - 8 tab PO UD PRN; Protocol PRN Reason: Hypoglycemia Protocol Stop: 03/13/24 21:47 Insulin Aspart (Insulin Aspart Per Unit Charge) 0 units SC ACHS [facility] Stop: 03/13/24 21:47 Last Admin: 02/12/24 22:54 Dose: Not Given Losartan Potassium (Losartan Potassium 50 Mg Tab) 50 mg PO PM [facility] Stop: 03/13/24 21:47 Last Admin: 02/13/24 00:09 Dose: 50 mg Metoprolol Succinate (Metoprolol Succ 25mg Ext Rel Tab) 25 mg PO QAM ANN Stop: 03/14/24 08:59 Miscellaneous (Carbohydrates For Hypoglycemia ) 15 - 30 gm PO UD PRN PRN Reason: Hypoglycemia Protocol Stop: 03/13/24 21:47 Ondansetron HCl (Ondansetron Inj 2 Mg/Ml 2 Ml Vial) 4 mg IV Q6H PRN PRN Reason: Nausea Stop: 03/13/24 21:47 Polyethylene Glycol (Polyethylene (Miralax) 17 Gm Pack) 17 gm PO DAILY PRN PRN Reason: Constipation Stop: 03/13/24 21:47 Prednisone (Prednisone 20 Mg Tab) 40 mg PO DAILY [facility] Stop: 03/14/24 08:59 Spironolactone (Spironolactone 12.5 Mg Tab) 12.5 mg PO DAILY [facility] Stop: 03/14/24 08:59 Umeclidinium/Vilanterol (Umeclidinium/Vilanterol 62.5/25mcg 7 Puffs/Inhaler) 1 puffs INH DAILY [facility] Stop: 03/14/24 08:59 (1) Asthma exacerbation Asthma severity: severe Asthma persistence: persistent Qualified Code(s): J45.51 - Severe persistent asthma with (acute) exacerbation (4) HTN (hypertension) Hypertension type: primary hypertension Qualified Code(s): I10 - Essential (primary) hypertension
[2024-02-13] MEDS: MONTELUKAST SODIUM 10 MG TABLET PO SCH (09:49)
[2024-02-13] MEDS: FUROSEMIDE 40 MG TAB PO SCH (09:50)
[2024-02-13] MEDS: OSELTAMIVIR PHOSPHATE 75 MG CAP PO STA (10:25)
[2024-02-13] MEDS: methylPREDNISolone 60 MG in SYRINGE 0 ML IV SCH (10:28)
[2024-02-13] MEDS: EMPAGLIFLOZIN 10 MG TAB PO SCH (10:28)
[2024-02-13] MEDS: FLUTICASONE FUROATE 100MCG 14 PUFFS/INHALER INH SCH (12:16)
--- NOTE | 2024-02-13 14:34 | Cardiology Consultation ---
Date of Consultation February 13, 2024 Assessment & Plan (1) Influenza A: (2) Acute on chronic HFrEF (heart failure with reduced ejection fraction): (3) LBBB (left bundle branch block): Patient with previous asymptomatic moderate left ventricular systolic dysfunction who recently presented with acute influenza A, superimposed pneumonia and congestive heart failure. Left bundle branch block on EKG is relatively unchanged compared to the previous dating back to 2023. Agree with inhaled bronchodilators and methylprednisolone. Cardiac perspective agree with ongoing treatment including metoprolol succinate 25 mg daily, Jardiance 10 mg daily, spironolactone 12.5 mg daily and losartan 50 mg daily. Future considerations include transitioning from losartan to Entresto as blood pressure allows. Continue furosemide 40 mg daily. Tamiflu had been ordered on presentation however patient tells me she prefers not to receive this medication. Questions answered the patient satisfaction. Will continue to follow patient with you. History of Present Illness Attending Physician: Tiffani Mclean MD History of Present Illness Urszula Paris is a 68 year old female referred for cardiology consultation by Jey Mosquera PA-C of the [facility] service. Patient is well known to the undersigned. Recent records reviewed. Patient interviewed by phone. Patient's cardiac history dates back to February, when she was seen in hospital consultation by the undersigned at [facility] for symptoms of dizziness and findings of high blood pressure as well as subjective palpitations. During that hospital stay she was found to have an abnormal EKG with lateral repolarization abnormalities consistent with possible ischemia or left ventricular hypertrophy. Echocardiogram at that time revealed moderate concentric left ventricular hypertrophy and normal LVEF. Mild tricuspid regurgitation was noted. Show not have an exercise nuclear stress test in February, that was negative for ischemia with normal LVEF. In Jun, 2020 she was noted to have a new onset left bundle branch block. A repeat pharmacologic nuclear stress test had been recommended which was perform ed in July, and was negative for ischemia LVEF by echocardiogram and by nuclear medicine gated SPECT technique were normal in July,. A repeat echocardiogram performed in 2022 however revealed a decline in ejection fraction to the range of 35-39%. Further workup was recommended for what was felt to likely be a nonischemic cardiomyopathy in the setting of left bundle branch block and an MRI was recommended at that time but the patient has not had this completed in setting a lapse in her insurance. She had most recently been seen by the undersigned in Jun, 2023 at that time she described no symptoms to suggest congestive heart failure. Medication therapy with metoprolol and losartan were continued and the cardiac MRI was once again ordered but had yet to be completed. She notes having had extended family visiting her for the recent holiday season. Several family members were ultimately diagnosed with influenza A per her description. A week ago on 02/06/2024 the patient started having flulike symptoms with generalized aches and cough and developed progressive shortness of breath. She ultimately sought care at the [facility] emergency department on 02/07/2024 where she was diagnosed with both influenza A with suspected associated pneumonia and there was concern of congestive heart failure. An echocardiogram was performed today around 02/08/2024. Report of study describes mild concentric left ventricular hypertrophy with mild left ventricular chamber dilatation, abnormal septal motion, otherwise global left ventricular hypokinesis with left ventricular ejection fraction in the range of 35-40%, relatively similar to the previous finding seen back to 2022. The patient was admitted for several days at [facility] from 02/07/2024 until 02/12/2024 discharged yesterday. She probably presented to this institution fo additional treatment. Per my discussion with her she states that overall she feels improved. She st ates her cough has improved. Allergies Allergy/AdvReac Type Severity Reaction Status Date / Time Iodinated Contrast Media Allergy Severe SHORTNESS Verified 09/18/23 18:15 OF BREATH oxycodone Allergy Mild NAUSEA AND Verified 09/18/23 18:15 VOMITING,GOOFY Sulfa (Sulfonamide Allergy Mild DIDN'T Verified 09/18/23 18:15 Antibiotics) WORK-HIVES,SOB Antidepressants AdvReac Severe neuro Uncoded 09/18/23 18:15 changes Home Medications Medication Instructions Recorded Confirmed Type albuterol sulfate 90 mcg/actuation 2 puff inhalation Q4H PRN 03/03/20 02/12/24 History aerosol inhaler Shortness Of Breath alprazolam 0.5 mg tablet 0.25 mg PO BID PRN Anxiety 03/03/20 02/12/24 History prednisone 5 mg tablet 10 mg PO DAILY 03/03/20 02/12/24 History acetaminophen 500 mg tablet 1,000 mg PO Q6 PRN Pain 05/10/20 02/12/24 History (Tylenol Extra Strength) aspirin 81 mg tablet,delayed 81 mg PO DAILY 02/12/24 02/12/24 History release ergocalciferol (vitamin D2) 1,250 120 mcg PO WK 02/12/24 02/12/24 History mcg (50,000 unit) capsule (Vitamin D2) fluticasone 250 mcg-salmeterol 50 2 inh inhalation DAILY PRN 02/12/24 02/12/24 History mcg/dose blistr powdr for Shortness Of Breath inhalation furosemide 40 mg tablet 40 mg PO QAM 02/12/24 02/12/24 History losartan 100 mg tablet 50 mg PO PM 02/12/24 02/12/24 History metoprolol succinate 50 mg 50 mg PO DAILY 02/12/24 02/12/24 History tablet,extended release 24 hr montelukast 10 mg tablet 10 mg PO DAILY 02/12/24 02/12/24 History Patient History Medical History Arthritis NECK-FULL ROM Depression GERD (gastroesophageal reflux disease) Temporomandibular joint disorder CRACKS NO LOCKING Insomnia SOB (shortness of breath) on exertion Asthma INHALER PRN MVP (mitral valve prolapse) PREMEDS WITH DENTAL Sinusitis ACUTE Surgical History History of open reduction and internal fixation (ORIF) procedure LEFT ARM History of tonsillectomy History of section X 2 Social History Smoking Status: Never smoker Second Hand Exposure: Yes (FATHER SMOKED); Do You Dip or Chew Tobacco: No; Hx Alcohol Use: No Hx Substance Use: No Preferred Language: Bermudian Communication Ability: Effective Last Cleaner Required: No Beliefs That Will Affect Care: None marital status: Current Living Situation: Spouse and Family Current Living Situation Comment: lives in 1 story home with and 13yo granddaughter Feels Safe at Home: Yes Safety Concerns: Feels Safe At This Time Assistive Devices: Oxygen - Continuous Review of Systems Review of Systems: All systems reviewed & are unremarkable except as noted in HPI & below Physical Exam Physical Exam: No in person physical exam not performed Results & Data Vital Signs (Past 12 Hours) Vital Signs Temp Pulse Pulse Resp BP BP Pulse Ox 02/13/24 13:06 83 20 92 02/13/24 12:00 36.8 C 80 18 147/78 H 93 02/13/24 09:03 94 H 22 89 L 02/13/24 08:00 90 22 90 02/13/24 07:45 83 02/13/24 07:43 82 20 92 02/13/24 07:30 79 20 93 02/13/24 07:30 133/71 02/13/24 05:30 78 25 H 137/78 93 02/13/24 05:00 79 26 H 124/81 94 02/13/24 04:30 79 25 H 145/76 H 94 02/13/24 04:00 79 24 132/63 94 02/13/24 03:30 86 26 H 138/74 97 02/13/24 03:00 85 28 H 132/70 94 02/13/24 02:30 91 H 23 108/59 L 94 O2 Del Method O2 Flow Rate 02/13/24 13:06 Nasal Cannula 2.5 02/13/24 12:00 Nasal Cannula 2 02/13/24 09:03 Nasal Cannula 1 02/13/24 08:00 Nasal Cannula 1 02/13/24 07:45 02/13/24 07:43 Nasal Cannula 1 02/13/24 07:30 Nasal Cannula 3 02/13/24 07:30 02/13/24 05:30 Nasal Cannula 3 02/13/24 05:00 Nasal Cannula 3 02/13/24 04:30 Nasal Cannula 3 02/13/24 04:00 Nasal Cannula 3 02/13/24 03:30 Nasal Cannula 3 02/13/24 03:00 Nasal Cannula 3 02/13/24 02:30 Laboratory Results Cardiac Enzymes 02/12/24 Range/Units 15:00 AST 32 (13-39) U/L Troponin I High Sens 13.2 (0-14) pg/ml B-Natriuretic Peptide 225 H (0-100) pg/ml Coagulation 02/12/24 Range/Units 15:00 PT 10.3 (9.0-12.0) Seconds APTT 22 (21-31) Seconds B-Natriuretic Peptide 225 H (0-100) pg/ml CBC 02/12/24 02/13/24 Range/Units 15:00 03:35 WBC 8.26 10.03 (4.8-10.8) K/ul RBC 4.61 4.34 (4.20-5.40) M/uL Hgb 14.4 13.3 (12.0-16.0) g/dl Hct 43.3 40.5 (37.0-47.0) % Plt Count 222 217 (130-400) K/uL Neut # (Auto) 6.95 H (1.40-6.50) K/uL Lymph # (Auto) 0.98 L (1.20-3.40) K/uL [place] # (Auto) 0.14 (0.11-0.59) K/uL Eos # (Auto) 0.00 (0.00-0.50) K/uL Baso # (Auto) 0.02 (0.00-0.20) K/uL Comprehensive Metabolic Panel 02/12/24 02/13/24 Range/Units 15:00 03:35 Sodium 139 139 (136-145) mmol/L Potassium 4.5 4.2 (3.5-5.1) mmol/L Chloride 94 L 95 L (98-107) mmol/L Carbon Dioxide 34 H 34 H (21-32) mmol/L BUN 23 29 H (6-23) mg/dl Creatinine 0.98 0.83 (0.6-1.2) mg/dl Glucose 209 H 244 H (70-99(Fasting)) mg/dl Calcium 9.4 8.9 (8.6-10.3) mg/dl AST 32 (13-39) U/L ALT 48 (7-52) U/L Alkaline Phosphatase 57 (34-104) U/L Total Protein 7.4 (6.0-8.3) gm/dl Albumin 4.1 (3.4-5.0) gm/dl Intake and Output 02/12/24 02/13/24 02/13/24 22:59 06:59 14:59 Output Total 600 / 600 Balance -600 / -600 Output: Urine 600 / 600 Other: Weight 63.5 kg 63.5 kg Weight Measurement Method [facility] Diagnostic Findings Report of chest x-ray: Small left pleural effusion no consolidation EKG performed 02/12/2024 and interpret independently: Sinus rhythm 84 bpm, left bundle branch block with QRS 150 ms. -Compared to previous outpatient EKG performed 06/17/2023 within the [facility], ongoing left bundle branch block noted, QRS duration of 2023 was 150 ms
--- NOTE | 2024-02-14 09:36 | Discharge Summary ---
Discharge Summary Date of Service February 14, 2024 Principal Dx & Hospital Course #1 = Principal Diagnosis (1) Asthma exacerbation: (2) Acute hypoxic respiratory failure: (3) Influenza A: (4) HTN (hypertension): (5) Anxiety: (6) Chronic systolic CHF (congestive heart failure): Notes For Next Care Provider Medication Changes From Visit Prednisone 40 mg daily for 5-day Change in Toprol XL from 50 to 25 mg daily Change in losartan from 100 to 50 mg daily Addition of Aldactone 12.5 mg daily Addition of Jardiance 10 mg daily Admission HPI Per Admitting Provider Patient is a 68-year-old female with history of hypertension, chronic asthma, on prednisone, anxiety/depression/chronic systolic CHF with ejection fraction of 35 to 40% who was admitted with wheezing and shortness of breath, she was exposed to influenza infection from family members recently around [facility]. Patient was found to be having acute hypoxemic respiratory failure, placed on oxygen. Patient did well on trial of steroid and bronchodilator treatment, she was diuresed as well, in regard to her history of CHF, she was seen by cardiology and some adjustment of medications were made, patient was seen and examined today, she is doing much better, she has no wheezing on examination, I took her off oxygen and her oxygen saturation was at 91% however prior to my plan for doing two-step oxygen assessment, I was told that previously and recently she had an oxygen testing and she was recommended and ordered to have oxygen 2 L/min and so this is eventually acute on chronic respiratory failure. Patient will be discharged home on a course of 5 days of prednisone 40 mg daily with additional adjustment of her cardiac medications. Will discharge her home. Updated Medication List Medication Instructions Recorded Confirmed Type albuterol sulfate 90 mcg/actuation 2 puff inhalation Q4H PRN 03/03/20 02/12/24 History aerosol inhaler Shortness Of Breath alprazolam 0.5 mg tablet 0.25 mg PO BID PRN Anxiety 03/03/20 02/12/24 History prednisone 5 mg tablet 10 mg PO DAILY 03/03/20 02/12/24 History acetaminophen 500 mg tablet 1,000 mg PO Q6 PRN Pain 05/10/20 02/12/24 History (Tylenol Extra Strength) aspirin 81 mg tablet,delayed 81 mg PO DAILY 02/12/24 02/12/24 History release ergocalciferol (vitamin D2) 1,250 120 mcg PO WK 02/12/24 02/12/24 History mcg (50,000 unit) capsule (Vitamin D2) fluticasone 250 mcg-salmeterol 50 2 inh inhalation DAILY PRN 02/12/24 02/12/24 History mcg/dose blistr powdr for Shortness Of Breath inhalation furosemide 40 mg tablet 40 mg PO QAM 02/12/24 02/12/24 History montelukast 10 mg tablet 10 mg PO DAILY 02/12/24 02/12/24 History empagliflozin 10 mg tablet 10 mg PO DAILY 30 days #30 tabs 02/14/24 Rx (Jardiance) losartan 50 mg tablet 50 mg PO PM 30 days #30 tabs 02/14/24 Rx metoprolol succinate 25 mg 25 mg PO QAM 30 days #30 tabs 02/14/24 Rx tablet,extended release 24 hr prednisone 20 mg tablet 40 mg (2 x 20 mg) PO DAILY 5 days 02/14/24 Rx #10 tabs spironolactone 25 mg tablet 12.5 mg (1/2 x 25 mg) PO DAILY 30 02/14/24 Rx days #15 tabs Hospital Stay Data Consultations 02/12/24 18:34 ED Decision to Admit Stat 02/13/24 07:00 Consult Cardiology Routine Pending Results Patient Have Any Pending Studies at Discharge: No Discharge Instructions Given to Patient (Per Discharging Provider) Continue taking medications as prescribed Total Time Total Time Spent Total Time Spent (In Minutes): More than 35 minutes
[2024-02-14 11:37] VITALS: PULSE 103; RESP 20; TEMP 97.9; O2SAT 94
[2024-02-14 12:50] VITALS: BP 119/67
== END 2024-02-14 13:57 | disposition home or self-care (01) | DRG 202 ==
LOC: ED 13:32 → EDINP 19:46 → SUATTDRO 19:46 → 2W 21:49